=== PATIENT | female | born 1960 | race Caucasian/White ===

== ENCOUNTER → 2020-09-10 12:54 | Outpatient (BNVA) | payer OTHER, SELFPAY | PROVIDERS: PCP Internal Medicine; Visit Provider Family Medicine Adult Medicine | DX: Z76.89 Persons encountering health services in other specified circumstances (principal) ==

== ENCOUNTER 2020-10-07 12:12 | Outpatient (REF) | payer OTHER, SELFPAY | END 2020-10-07 12:13 | disposition home or self-care (01) | LOC: HO.HMGCLDS 12:12 | PROVIDERS: PCP Internal Medicine; Visit Provider Internal Medicine | DX: Z20.828 Contact with and (suspected) exposure to other viral communicable diseases (principal) | CPT/HCPCS: C9803; U0003 ==

== ENCOUNTER → 2020-11-05 15:53 | Outpatient (BNVA) | payer OTHER, SELFPAY | PROVIDERS: PCP Internal Medicine; Visit Provider Family Medicine Adult Medicine | DX: Z76.89 Persons encountering health services in other specified circumstances (principal) ==

== ENCOUNTER 2020-11-13 11:27 | Outpatient (REF) | payer OTHER, SELFPAY ==
--- NOTE | 2020-11-13 11:29 | CT_ITS ---
EXAMINATION: CT CHEST SCREENING CLINICAL INFORMATION: Nicotine dependence, cigarettes. COMPARISON: CT chest 10/11/2019. TECHNIQUE: Multidetector volumetric CT imaging of the chest is performed without contrast using low dose technique. Additional 2D coronal and sagittal reformatted images and axial 3D maximum intensity projection (MIP) images are generated on the CT workstation. This CT examination was performed using dose optimization techniques as appropriate, variously including the following: *Automated exposure control *Adjustment of mA and/or kV according to patient size (this includes techniques or standardized protocols for targeted exams where dose is matched to indication/reason for exam; i.e. extremities or head) *Use of iterative reconstruction technique DLP: 58 mGy-cm. FINDINGS: LUNGS: The lungs are well expanded and clear of acute pneumonic process. There is a 5 mm nodule right upper lobe adjacent to the minor fissure on axial image 239/5, stable. No additional lung nodules seen. There is a 1 cm cyst in left upper lobe posteriorly axial image 144/5, stable. There are minimal atelectatic changes in the lingula. MEDIASTINUM: Heart size and the great vessels are normal caliber. No pericardial effusion seen. There are coronary artery calcifications. The central trachea and bronchi are widely patent. No abnormal-sized mediastinal or hilar lymph nodes seen. There are coronary calcifications present. PLEURA: There is no pleural effusion. No pleural mass or thickening. AXILLA: No lymphadenopathy. There is a 1.6 cm soft tissue mass right chest wall. Previously it measured 1 cm. UPPER ABDOMEN: Unremarkable OSSEOUS STRUCTURES: There is a right posterior 8th rib healing fracture. CT/CT lung screening IMPRESSION: A 5 mm nodule right upper lobe and a small left upper lobe cyst are stable. Right chest wall 1.6 cm nodule, previously measured 1 cm. ASSESSMENT: Lung-RADS category 2: Benign. RECOMMENDATION: Low-dose annual CT chest.
== END 2020-11-13 11:28 | disposition home or self-care (01) ==
LOC: HO.CT 11:27
PROVIDERS: Visit Provider Physician Assistant Medical
DX: Z12.2 Encounter for screening for malignant neoplasm of respiratory organs (principal); F17.210 Nicotine dependence, cigarettes, uncomplicated
CPT/HCPCS: 71271

== ENCOUNTER → 2020-12-19 13:38 | Outpatient (BNVA) | payer OTHER, SELFPAY | PROVIDERS: PCP Internal Medicine; Visit Provider Family Medicine Adult Medicine ==

== ENCOUNTER 2020-12-31 11:47 | Outpatient (REF) | payer OTHER, SELFPAY ==
--- NOTE | ~2020-12-31 | MM_ITS ---
EXAMINATION: MM SCREENING DIGITAL BREAST TOMOSYNTHESIS, BILATERAL CLINICAL INFORMATION: Screening. Asymptomatic. Patient notes benign left axillary surgery over 20 years ago. The lifetime risk of breast cancer based on the Tyrer-Cuzick Model is 11%. COMPARISON: Mammography: 05/14/2017, 11/25/2015 TECHNIQUE: Digital breast tomosynthesis is performed in both the craniocaudal and mediolateral oblique views along with computer-aided detection (CAD). Synthesized 2D images are generated from the tomosynthesis. FINDINGS: There are scattered areas of fibroglandular density (ACR BI-RADS breast composition Category b). There are no significant masses, abnormal calcifications, or other abnormalities. There are surgical clips left axilla. The skin contours are smooth. MM/MM tomosynthesis screening BI IMPRESSION: No mammographic evidence of malignancy. ASSESSMENT: BI-RADS 2: Benign RECOMMENDATION: Routine annual mammography screening. This patient's information was entered into a reminder system with a target due date for their next mammogram.
== END 2020-12-31 11:48 | disposition home or self-care (01) ==
LOC: HO.MAMMO 11:47
PROVIDERS: PCP Internal Medicine; Visit Provider Internal Medicine
DX: Z12.31 Encounter for screening mammogram for malignant neoplasm of breast (principal)
CPT/HCPCS: 77063; 77067

== ENCOUNTER → 2021-01-30 13:24 | Outpatient (BNVA) | payer OTHER, SELFPAY | PROVIDERS: PCP Internal Medicine; Visit Provider Family Medicine Adult Medicine | DX: M23.91 Unspecified internal derangement of right knee (principal); Z96.652 Presence of left artificial knee joint ==

== ENCOUNTER → 2021-03-13 12:54 | Outpatient (BNVA) | payer OTHER, SELFPAY | PROVIDERS: PCP Internal Medicine; Visit Provider Family Medicine Adult Medicine | DX: M23.91 Unspecified internal derangement of right knee (principal); Z96.652 Presence of left artificial knee joint ==

== ENCOUNTER → 2021-04-16 13:13 | Outpatient (BNVA) | payer OTHER, SELFPAY | PROVIDERS: PCP Internal Medicine; Visit Provider Nurse Practitioner Family | DX: M23.91 Unspecified internal derangement of right knee (principal); Z96.652 Presence of left artificial knee joint ==

== ENCOUNTER → 2021-04-28 13:56 | Outpatient (BNVA) | payer OTHER, SELFPAY | PROVIDERS: PCP Internal Medicine; Visit Provider Internal Medicine ==

== ENCOUNTER 2021-07-24 07:58 | Outpatient (REF) | payer OTHER, SELFPAY ==
[2021-07-24 11:41] LABS: Hematocrit 45.3 % (37-47); Hemoglobin 14.1 g/dl (12.0-16.0); Mean Corpuscular HGB Conc 31.1 g/dl (31.0-35.0); Mean Corpuscular Hemoglobin 28.9 pg (27.0-33.0); Mean Corpuscular Volume 92.8 fL (80-98); Mean Platelet Volume 10.2 fL (9.4-12.3); Platelet Count 361 X10*3/uL (160-400); Red Blood Count 4.88 X10*6/uL (4.20-5.50); Red Cell Distribution Width 12.5 % (11.0-16.0); White Blood Count 5.2 X10*3/uL (4.8-10.8)
[2021-07-24 11:53] LABS: Alanine Aminotransferase 6 U/L (0-31); Albumin Level 3.9 g/dL (3.5-5.0); Alkaline Phosphatase 76 U/L (39-117); Anion Gap 11 (12-20); Aspartate Amino Transferase 12 U/L (5-31); Bilirubin Total 0.5 mg/dL (0.0-1.0); Blood Urea Nitrogen 10 mg/dL (9-16); Carbon Dioxide 29 mmol/L (22-29); Chloride 102 mmol/L (96-108); Cholesterol 176 mg/dL; Estimated Glomerular Filt Rate > 60; Glucose Fasting 94 mg/dL (60-99); HDL Cholesterol 51 mg/dL; LDL Cholesterol Calculated 107 mg/dl; Potassium 4.2 mmol/L (3.3-5.1); Sodium 138 mmol/L (135-145); Total Protein 6.9 g/dL (6.5-8.0); Triglycerides 91 mg/dL
[2021-07-24 12:02] LABS: TSH reflex Free T4 2.79 uIU/mL (0.32-4.0)
== END 2021-07-24 07:59 | disposition home or self-care (01) ==
LOC: HO.HMGCLDS 07:58
PROVIDERS: PCP Internal Medicine; Visit Provider Internal Medicine
DX: Z00.00 Encounter for general adult medical examination without abnormal findings (principal); J44.9 Chronic obstructive pulmonary disease, unspecified; E78.5 Hyperlipidemia, unspecified
CPT/HCPCS: 36415; 80053; 80061; 84443; 85027

== ENCOUNTER 2021-11-20 10:58 | Outpatient (REF) | payer OTHER, SELFPAY | END 2021-11-20 10:59 | disposition home or self-care (01) | LOC: HO.LAB 10:58 | PROVIDERS: Visit Provider Internal Medicine | DX: Z13.89 Encounter for screening for other disorder (principal) ==

== ENCOUNTER 2022-06-02 07:38 | Outpatient (REF) | payer OTHER, SELFPAY ==
[2022-06-02 12:03] LABS: Alanine Aminotransferase 7 U/L (0-31); Albumin Level 3.8 g/dL (3.5-5.0); Alkaline Phosphatase 76 U/L (39-117); Anion Gap 9 (12-20); Aspartate Amino Transferase 12 U/L (5-31); Bilirubin Total 0.3 mg/dL (0.0-1.0); Blood Urea Nitrogen 22 mg/dL (9-16); Calcium 8.9 mg/dL (8.4-10.2); Carbon Dioxide 32 mmol/L (22-29); Chloride 102 mmol/L (96-108); Cholesterol 175 mg/dL; Estimated Glomerular Filt Rate > 60; Glucose Fasting 89 mg/dL (60-99); HDL Cholesterol 54 mg/dL; LDL Cholesterol Calculated 105 mg/dl; Potassium 4.5 mmol/L (3.3-5.1); Sodium 138 mmol/L (135-145); Triglycerides 83 mg/dL
== END 2022-06-02 07:39 | disposition home or self-care (01) ==
LOC: HO.HMGCLDS 07:38
PROVIDERS: Visit Provider Internal Medicine
DX: E78.5 Hyperlipidemia, unspecified (principal); J44.9 Chronic obstructive pulmonary disease, unspecified
CPT/HCPCS: 36415; 80053; 80061

== ENCOUNTER 2022-06-09 15:43 | Outpatient (REF) | payer OTHER, SELFPAY ==
--- NOTE | ~2022-06-09 | MM_ITS ---
EXAMINATION: MM SCREENING DIGITAL BREAST TOMOSYNTHESIS, BILATERAL CLINICAL INFORMATION: Screening. Asymptomatic. Family history breast cancer, mother. The lifetime risk of breast cancer based on the Tyrer-Cuzick Model is 11%. COMPARISON: Mammography: 12/31/2020, 05/14/2017, 11/25/2015, 09/11/2014 TECHNIQUE: Digital breast tomosynthesis is performed in both the craniocaudal and mediolateral oblique views along with computer-aided detection (CAD). Synthesized 2D images are generated from the tomosynthesis. Additional left MLO view is provided. FINDINGS: There are scattered areas of fibroglandular density (ACR BI-RADS breast composition Category b). There are no significant masses, abnormal calcifications, or other abnormalities. Parenchymal pattern is similar to prior studies. No developing density. Intramammary node again noted posterior upper outer left breast. MM/MM tomosynthesis screening BI IMPRESSION: No mammographic evidence of malignancy. ASSESSMENT: BI-RADS 2: Benign RECOMMENDATION: Routine annual mammography screening. This patient's information was entered into a reminder system with a target due date for their next mammogram.
== END 2022-06-09 15:44 | disposition home or self-care (01) ==
LOC: HO.MAMMO 15:43
PROVIDERS: Visit Provider Internal Medicine
DX: Z12.31 Encounter for screening mammogram for malignant neoplasm of breast (principal)
CPT/HCPCS: 77063; 77067

== ENCOUNTER → 2022-08-25 10:59 | Outpatient (BNVA) | payer SELFPAY | PROVIDERS: PCP Internal Medicine; Visit Provider Internal Medicine | DX: Z13.89 Encounter for screening for other disorder (principal) ==

== ENCOUNTER 2023-06-08 09:29 | Outpatient (AMB) | payer OTHER, SELFPAY ==
--- NOTE | 2023-06-08 09:43 | MHC.PC.OV ---
Vital Signs 06/08/23 09:45 Height 5 ft 3 in Weight 201 lb BMI 35.6 BP 124/78 Blood Pressure Location Lt brachial Position Sitting Pulse 66 Pulse Source Pulse Oximeter Pulse Oximetry (%) 91 L Oxygen Delivery Method Room Air Intake Visit Reasons: Annual PE Allergies No Known Allergies Allergy (Verified 06/08/23 09:45) Medication List - Last Reconciled 06/08/23 by Mame Zamora MD albuterol sulfate 90 mcg/actuation 1 puff inhalation Q6-8H amoxicillin-pot clavulanate 875-125 mg 1 tab PO BID buprenorphine-naloxone 8-2 mg 7 mg sublingual DAILY duloxetine 60 mg PO DAILY erythromycin 0.5 inches ophthalmic (eye) BID 5 days omeprazole 20 mg PO DAILY pravastatin 20 mg PO DAILY Tobacco use date assessed: 06/03/22 Dental Screening Dental Screen Date: 06/08/23 Did you have a dental visit in the last 12 months?: No Did you have a dental problem in the last 6 months where you did not have access to dental care?: No Was dental information given to patient?: Patient has dentist HPI Annual PE HPI Details PATIENT PRESENTS FOR PHYSICAL PFSH Medical History Ankle pain, left Annual physical exam Anxiety Anxiety COPD (chronic obstructive pulmonary disease) Depression Derangement of right knee Fibromyalgia GERD (gastroesophageal reflux disease) Hyperlipidemia Insomnia Mammogram normal Nausea Obese Tobacco dependence Surgical History H/O colonoscopy History of arthroscopy of shoulder History of arthroscopy of shoulder History of section History of lumpectomy of left breast History of repair of right rotator cuff History of total left knee replacement (TKR) History of tubal ligation Hx of left knee surgery Hx of right knee surgery Family History Father No problems noted. Mother Breast cancer Throat cancer Substance use disorder Maternal Grandmother Alcoholism Maternal Grandfather No problems noted. Paternal Grandmother No problems noted. Paternal Grandfather No problems noted. Son No problems noted. Daughter No problems noted. 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 Alcohol intake: never Patient Tobacco Use Status: Current everyday Tobacco user Tobacco use type: Cigarette Cigarettes Per Day: 20 Years Smoked: 40 e-Cigarette/Vaping Use: Former Use Current occupational status: employed Cognitive needs: No Hearing needs: No Vision needs: No Questionnaire Thrive Questionnaire Date Thrive assessed: 06/03/22 AUDIT C Alcohol Use Questionnaire (AUDIT-C) 1. How often do you have a drink containing alcohol?: Never 3. How often do you have six or more drinks on one occasion?: Never Total Score: 0 Score Reviewed/Action Taken: No NATTY-7 AMB Questionnaire NATTY-7 Date NATTY - 7 assessed: 06/03/22 Source: Developed by Drs. Tawanda Gottlieb, Lesa Jeff, Peter Araujo and colleagues, with an educational sandi from [employer]. Review of Systems Const All systems reviewed & are unremarkable except as noted in HPI and below Reports no additional complaints Eyes Reports no additional complaints ENT Reports no additional complaints Card Reports no additional complaints Resp Reports no additional complaints GI Reports no additional complaints Physical exam (Primary Care) Vital Signs: Last Vital Signs Pulse 66 06/08/23 09:45 BP 124/78 06/08/23 09:45 Pulse Ox 91 L 06/08/23 09:45 Oxygen Delivery Method Room Air 06/08/23 09:45 BMI result Body Mass Index 35.6 Tobacco/Smoking Status: Tobacco use Status Tobacco use date assessed 06/03/22 06/08/23 09:45 Patient Tobacco Use Status Current everyday Tobacco 06/08/23 09:45 Tobacco use type Cigarette 06/08/23 09:45 e-Cigarette/Vaping Use Former Use 06/08/23 09:45 Thrive Assessment: Date of Thrive Assessment Date Thrive assessed 06/03/22 06/08/23 09:45 Const General: no acute distress HENMT Head: Yes normal to inspection Ears: hearing grossly normal bilaterally Face and sinus: Yes normal facial exam Throat: Yes posterior oropharynx normal Eyes General: appearance normal, both eyes and all related structures Neck Neck: Yes no lymphadenopathy and Yes supple Resp Effort & Inspection: normal respiratory effort Auscultation: clear to auscultation bilaterally Cardio Rhythm: regular rhythm Heart sounds: S1 normal heart sound present and S2 normal heart sound present GI Inspection: Yes normal to inspection Palpation (GI): Soft to palpation Percussion: Yes normal to percussion Auscultation: normal bowel sounds Assessment and Plan Assessment & Plan (1) Depression: Code(s): F32.9 - Major depressive disorder, single episode, unspecified Plan: Continue duloxetine (2) Annual physical exam: Code(s): Z00.00 - Encounter for general adult medical examination without abnormal findings Plan: Well-balanced diet regular exercise weight loss discussed with the patient she will have a fasting blood work today (3) Mammogram normal: Comment: 06/30 (4) Hyperlipidemia: Code(s): E78.5 - Hyperlipidemia, unspecified Plan: Continue pravastatin (5) Tobacco dependence: Comment: Lung ca screening 11/2020, RUL nodule 5 mm stable , f/u [facility] [place] Code(s): F17.200 - Nicotine dependence, unspecified, uncomplicated Plan: Tobacco quitting discussed with the patient. She is overdue for screening CT for lung cancer program patient will be referred back Orders: Orders Comprehensive [place]. Panel Fast Today E78.5 - Hyperlipidemia, unspecified, F17.200 - Nicotine dependence, unspecified, uncomplicated, F32.9 - Major depressive disorder, single episode, unspecified, Z00.00 - Encounter for general adult medical examination without abnormal findings Lipid Panel Today E78.5 - Hyperlipidemia, unspecified, F17.200 - Nicotine dependence, unspecified, uncomplicated, F32.9 - Major depressive disorder, single episode, unspecified, Z00.00 - Encounter for general adult medical examination without abnormal findings Complete Blood Count Auto Diff Today E78.5 - Hyperlipidemia, unspecified, F17.200 - Nicotine dependence, unspecified, uncomplicated, F32.9 - Major depressive disorder, single episode, unspecified, Z00.00 - Encounter for general adult medical examination without abnormal findings UA w Microscopic Today E78.5 - Hyperlipidemia, unspecified, F17.200 - Nicotine dependence, unspecified, uncomplicated, F32.9 - Major depressive disorder, single episode, unspecified, Z00.00 - Encounter for general adult medical examination without abnormal findings Referrals Cologuard Test Z12.11 - Encounter for screening for malignant neoplasm of colon, Z12.12 - Encounter for screening for malignant neoplasm of rectum Thoracic Surgery Referral F17.200 - Nicotine dependence, unspecified, uncomplicated Medications: New amoxicillin-pot clavulanate 875-125 mg 1 tab PO BID 20 tabs 0RF Coding Level of Care Code Est Pt Prev Care 40-64y(75021) Diagnoses Depression F32.9 Annual physical exam Z00.00 Mammogram normal Hyperlipidemia E78.5 Tobacco dependence F17.200
[2023-06-08 09:45] VITALS: BP 124/78; PULSE 66; O2SAT 91; BMI 35.6
== END 2023-06-08 10:27 | disposition home or self-care (01) ==
PROVIDERS: Visit Provider Internal Medicine
DX: Z00.00 Encounter for general adult medical examination without abnormal findings (principal); F33.9 Major depressive disorder, recurrent, unspecified; F17.210 Nicotine dependence, cigarettes, uncomplicated; E78.5 Hyperlipidemia, unspecified
CPT/HCPCS: 99396

== ENCOUNTER 2023-06-08 10:25 | Outpatient (REF) | payer OTHER, SELFPAY ==
[2023-06-08 13:26] LABS: MANUAL DIFF FLAG NO
[2023-06-08 13:41] LABS: Basophils Percent Auto 0.8 % (0-2); Eosinophils Absolute Auto 0.2 X10*3/uL (0.0-0.4); Eosinophils Percent Auto 3.1 % (0-4); Hematocrit 47.2 % (37.0-47.0); Imm Gran Abs Auto 0.02 X10*3/uL (0.00-0.03); Imm Gran Pct Auto 0.4 % (0.0-0.4); Lymphocytes Absolute Auto 1.1 X10*3/uL (1.2-4.9); Lymphocytes Percent Auto 23.3 % (20-40); Mean Corpuscular HGB Conc 31.8 g/dl (31.0-35.0); Mean Corpuscular Hemoglobin 28.8 pg (27.0-33.0); Mean Corpuscular Volume 90.6 fL (80.0-98.0); Mean Platelet Volume 10.2 fL (9.4-12.3); Monocytes Absolute Auto 0.4 X10*3/uL (0.1-1.2); Monocytes Percent Auto 8.4 % (2-11); Neutrophils Absolute Auto 3.1 x10*3/uL (2.0-8.3); Platelet Count 291 X10*3/uL (160-400); Red Blood Count 5.21 X10*6/uL (4.20-5.50); Red Cell Distribution Width 14.1 % (11.0-16.0); White Blood Count 4.9 X10*3/uL (4.8-10.8)
[2023-06-08 13:55] LABS: Appearance Urine Clear; Color Urine Yellow; Glucose Urine UA Negative (Negative); Leukocyte Esterase Urine Negative (Negative); Nitrite Urine Negative (Negative); PH 7.5 (5.0-9.0); Urine Blood Negative (Negative); Urine Ketones Negative (Negative); Urine Protein Negative (Neg-Trace)
[2023-06-08 14:02] LABS: Bacteria Urine None Seen (None Seen); Hyaline Casts Urine 0-2 /LPF (0-2); RBC Urine 0-2 /HPF (0-2); WBC Urine 0-5 /HPF (0-5)
[2023-06-08 14:04] LABS: Alanine Aminotransferase 8 U/L (0-31); Albumin Level 3.7 g/dL (3.5-5.0); Alkaline Phosphatase 82 U/L (39-117); Anion Gap 13 (12-20); Aspartate Amino Transferase 13 U/L (5-31); Bilirubin Total 0.5 mg/dL (0.0-1.0); Blood Urea Nitrogen 14 mg/dL (9-16); Calcium 9.4 mg/dL (8.4-10.2); Carbon Dioxide 29 mmol/L (22-29); Chloride 99 mmol/L (96-108); Cholesterol 189 mg/dL; Estimated Glomerular Filt Rate > 60; Glucose Fasting 94 mg/dL (60-99); HDL Cholesterol 54 mg/dL; LDL Cholesterol Calculated 120 mg/dl; Potassium 4.4 mmol/L (3.3-5.1); Sodium 137 mmol/L (135-145); Total Protein 7.7 g/dL (6.5-8.0); Triglycerides 79 mg/dL
== END 2023-06-08 10:26 | disposition home or self-care (01) ==
LOC: HO.HMGCLDS 10:25
PROVIDERS: PCP Internal Medicine; Visit Provider Internal Medicine
DX: Z00.00 Encounter for general adult medical examination without abnormal findings (principal); F32.9 Major depressive disorder, single episode, unspecified; E78.5 Hyperlipidemia, unspecified; F17.200 Nicotine dependence, unspecified, uncomplicated
CPT/HCPCS: 36415; 80053; 80061; 81001; 85025

== ENCOUNTER 2023-11-08 19:52 | Inpatient (IN) | payer OTHER, SELFPAY ==
[2023-11-08] VITALS (8 sets, daily range): BP systolic 120–130; BP diastolic 80–83; PULSE 101–105; RESP 14–25; TEMP 36.1; O2SAT 76–100; BMI 39.4
--- NOTE | ~2023-11-08 | XR_ITS ---
EXAMINATION: XR CHEST CLINICAL INFORMATION: Shortness of breath. COMPARISON: CT chest 11/13/2020. TECHNIQUE: Frontal view of the chest was obtained. FINDINGS: Prominent cardiomediastinal silhouette with diffuse interstitial thickening. No focal consolidation, pleural effusion or pneumothorax. No acute osseous findings. Visualized upper abdomen is within normal limits. Surgical clips projecting over the left breast. XR/XR chest 1V IMPRESSION: Findings suggesting pulmonary edema versus atypical infectious/inflammatory process. Prominent cardiomediastinal silhouette could be related with cardiomegaly, further evaluation with bedside echocardiogram as clinically warranted.
--- NOTE | 2023-11-08 20:03 | ECG_ITS ---
Test Reason : dyspnea Blood Pressure : / mmHG Vent. Rate : 098 BPM Atrial Rate : 098 BPM P-R Int : 152 ms QRS Dur : 080 ms QT Int : 296 ms P-R-T Axes : 059 107 019 degrees QTc Int : 377 ms Normal sinus rhythm Possible Right ventricular hypertrophy Nonspecific ST and T wave abnormality Abnormal ECG No previous ECGs available Referred By: Jadyn Mondragon Electronically Signed By:Hal Sheppard
--- NOTE | 2023-11-08 20:08 | ED_ITS ---
HPI - SOB/Dyspnea General Chief Complaint: Dyspnea Stated Complaint: SOB,HX COPD Time Seen by Provider: 11/08/23 19:53 Source: patient, family and EMS Mode of arrival: EMS Limitations: other (Shortness of breath) History of Present Illness HPI Narrative: Patient comes to the emergency room complaining of shortness of breath. Patient comes via ambulance from home. Patient seems a bit confused, short of breath. According to the patient's , the patient has been complaining of shortness of breath and wheezing since today. Patient has not been coughing. Patient known to have COPD, no cardiac history. According to EMS, the patient's oxygen saturation was in the low 80s, so given a DuoNeb EN route to the hospital. On arrival, while we were switching the patient from the ambulance stretcher to the ER bed, patient's oxygen was removed for a few seconds, oxygen saturation dropped to 76% with good waveform. Related Data Home Medications Medication Instructions Recorded Confirmed buprenorphine 8 mg-naloxone 2 mg 7 mg sublingual DAILY 07/29/21 06/08/23 sublingual film Previous Rx's Medication Instructions Recorded pravastatin 20 mg tablet 20 mg PO DAILY #90 tabs 09/10/22 albuterol sulfate 90 mcg/actuation 1 puff inhalation Q6-8H #25.5 grams 11/06/22 aerosol inhaler omeprazole 20 mg capsule,delayed 20 mg PO DAILY #90 caps 05/01/23 release amoxicillin 875 mg-potassium 1 tab PO BID #20 tabs 06/08/23 clavulanate 125 mg tablet erythromycin 5 mg/gram (0.5 %) eye 0.5 inch ophthalmic (eye) BID 5 06/18/23 ointment days #3.5 grams zolpidem 5 mg tablet 5 mg PO BEDTIME PRN insomnia #30 10/15/23 tabs duloxetine 60 mg capsule,delayed 60 mg PO DAILY #90 caps 10/28/23 release Allergies Allergy/AdvReac Type Severity Reaction Status Date / Time No Known Allergies Allergy Verified 11/08/23 20:00 Review of Systems 2 Review of Systems: Constitutional : No Weight loss, No Fever, No Chills, No Night Sweats, No Fatigue, No Malaise ENT/Mouth : No Hearing loss, No Ear Pain, No Nasal Congestion, No Sinus Pain, No Hoarseness, No sore throat, No Rhinorrhea, No Swallowing Difficulty Eyes: No Eye Pain, No Swelling, No Redness, No Foreign Body, No Discharge, No Vision Changes Cardiovascular : No Chest Pain, complaining of shortness of breath, no orthopnea, no palpitations Respiratory : Mild dry cough, complaining of wheezing and shortness of breath Gastrointestinal : No Nausea, No Vomiting, No Diarrhea, No Constipation, No abdominal Pain, No Hematochezia, No Melena Genitourinary : no irregular bleeding, No Dysuria, No Urinary Frequency, No Hematuria, No Urinary Incontinence, No Urgency, No Flank Pain, No Urinary Flow Changes, No Hesitancy Musculoskeletal : No joint pain, No Myalgias, No Joint Swelling Skin : No Skin Lesions, No rash Neuro : No Weakness, No Numbness, No Paresthesias, No Loss of Consciousness, No Dizziness, No Headache Psych : No Anxiety/Panic, No Depression, No SI/HI/AH/VH, No Social Issues, Heme/Lymph: No Bruising, No Bleeding,No Lymphadenopathy Endocrine : No Polyuria, No Polydipsia, No Temperature Intolerance PMFSH Past Medical History Onset Date is defined in the Problem List Problems that require an onset date and time if occurred within 24 hrs of arrival to the ED Aortic Dissection and Rupture; Neurologic impairment; Cardiopulmonary Arrest; Endotracheal Intubation; Insertion or Replacement of Mechanical Circulatory Assist Device Medical History Mammogram normal Anxiety Nausea Annual physical exam Tobacco dependence COPD (chronic obstructive pulmonary disease) Ankle pain, left Obese GERD (gastroesophageal reflux disease) Fibromyalgia Hyperlipidemia Insomnia Depression Anxiety Derangement of right knee Surgical History H/O colonoscopy History of arthroscopy of shoulder History of arthroscopy of shoulder History of section History of lumpectomy of left breast History of repair of right rotator cuff History of total left knee replacement (TKR) History of tubal ligation Hx of left knee surgery Hx of right knee surgery Family History Family History Father No problems noted. Mother Breast cancer Throat cancer Substance use disorder Maternal Grandmother Alcoholism Maternal Grandfather No problems noted. Paternal Grandmother No problems noted. Paternal Grandfather No problems noted. Son No problems noted. Daughter No problems noted. 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: House Alcohol intake: never Patient Tobacco Use Status: Current everyday Tobacco user Tobacco use type: Cigarette Cigarettes Per Day: 20 Years Smoked: 40 Smoked in Last 30 Days: No e-Cigarette/Vaping Use: Former Use Use of substances other than those prescribed or required for medical reasons: Yes Substance Use Type: Marijuana Last Used Substance: Days (ago) Advance Directives: No Advance Directives Information Provided: No Current occupational status: employed Cognitive needs: No Hearing needs: No Vision needs: No Physical Exam 2 Vital Signs: Vital Signs: Last Vital Signs Temp 97.0 F 11/08/23 20:18 Pulse 105 H 11/08/23 21:41 Resp 19 11/08/23 21:41 BP 130/80 11/08/23 21:41 Pulse Ox 89 L 11/08/23 21:41 O2 Del Method CPAP 11/08/23 21:41 O2 Flow Rate 45 11/08/23 21:41 BMI result Body Mass Index 39.4 Const: Other: Appearance: Alert. Oriented X3. But seems a bit confused Eyes: Pupils equal, round and reactive to light. ENT: Pharynx normal. Neck: Normal inspection. Neck supple. No lymph nodes noted. No crepitus CVS: Normal heart rate and rhythm. Pulses normal. Normal S1 and S2 Respiratory: Tachypneic, oxygen saturation 76% on room air, 85% on 5 L, bilateral wheezing, bilateral decreased air movement, bilateral crackles Abdomen: Soft and nontender. No rigidity. No distention. Skin: Skin warm and dry. Normal skin color. Normal skin turgor. Extremities: No lower extremity edema. No Lacerations. No Rash Neuro: No motor deficit. No sensory deficit. Moving all extremities. No slurred speech. CN 2 through 12 grossly intact Psych: calm, cooperative, normal affect Course Course Course Narrative: -patient's labs and imaging pending -discussed with the patient that she will likely stay in the hospital after the initial workup is complete. Patient and agree with plan. Medications Administered Generic Name Dose Route Start Last Admin Trade Name Freq PRN Reason Stop Dose Admin Sodium Chloride 2,000 mls @ 999 mls/hr 11/08/23 20:03 11/08/23 20:09 Ns IVCONT 11/08/23 22:03 999 mls/hr .Q2H1M ONE Administration Azithromycin 500 mg/ Sodium 250 mls @ 125 mls/hr 11/08/23 20:07 11/08/23 21:41 Chloride IV 11/08/23 22:06 125 mls/hr ONCE ONE Administration Magnesium Sulfate 2 gm in 50 mls @ 25 mls/hr 11/08/23 20:07 11/08/23 20:14 Magnesium Sulfate/H2o IV 11/08/23 22:06 25 mls/hr ONCE ONE Administration Discontinued Medications Generic Name Dose Route Start Last Admin Trade Name Freq PRN Reason Stop Dose Admin Albuterol Sulfate 10 mg 11/08/23 20:07 11/08/23 20:16 Albuterol Sulfate (0.083%) 2.5 Mg/3 Ml Vial.Neb INHALE 11/08/23 20:08 10 mg ONCE ONE Administration Furosemide 40 mg 11/08/23 21:18 11/08/23 21:41 Furosemide 40 Mg/4 Ml Vial IVPUSH 11/08/23 21:19 40 mg STAT STA Administration Protocol Ceftriaxone Sodium 1 gm/ 50 mls @ 100 mls/hr 11/08/23 20:07 11/08/23 21:31 Sodium Chloride IV 11/08/23 20:36 Infused ONCE ONE Infusion Methylprednisolone Sodium Succinate 125 mg 11/08/23 20:08 11/08/23 20:14 Methylprednisolone Sod Succ 125 Mg/2 Ml Vial IVPUSH 11/08/23 20:09 125 mg ONCE ONE Administration Medical Decision Making Medical Decision Making MDM Narrative: -patient's oxygen saturations 78% on room air on arrival after a DuoNeb. Patient is not O2 dependent. 5 L of oxygen increased oxygen saturation to 83%. Patient switched to a non-rebreather, patient receiving neb treatments. -patient empirically being treated with IV antibiotics, ceftriaxone azithromycin, and given IV fluids based on ideal weight of 48 kg, patient is obese. Patient receiving hour long nebulization treatment, Solu-Medrol and magnesium IV -20:07 all of patient's labs and imaging pending -patient was switched to CPAP. Patient is still having short of breath. -on arrival, patient was being treated for COPD, as she was wheezing and had no cardiac history. -however, at this time, 21:23, we received a phone call from the lab, patient has a BNP of 787 which is new for the patient, troponin 70.9, likely secondary to demand ischemia, no chest pain -heart rate 98, no ST segment depression or elevation, no T-wave inversion, QTC pre 77 -patient has no lower extremity edema, patient is still wheezing. Patient likely has a combination of COPD and CHF. Is possible that the wheezing may be cardiac. -I discussed the above-mentioned with the patient and her -at this time, patient was switched from CPAP to BiPAP, as she is tolerating BiPAP better -patient in total got 1 L of IV fluids. Antibiotics. Now patient is getting Lasix -patient's pCO2 is elevated, 76, no previous venous blood gases for comparison available. -is likely that patient has both, COPD and new onset CHF -patient is currently on CPAP. We will reassess in 2 hours, around midnight, and also recheck venous blood gases. -sign-out given to my colleague Dr. Morris Differential Diagnosis Differential Diagnoses: The differential diagnosis associated with the presentation includes (COPD, pneumonia, COVID, CHF) Admission/Observation Consideration of admission/observation: Escalation of care including admission/observation considered Consult Healthcare Provider Management of the patient was discussed with: Hospitalist Lab Data [facility] Lab Attestation statement: I reviewed the patient's lab results. 11/08/23 20:43 11/08/23 20:43 Labs: Lab Results 11/08/23 11/08/23 11/08/23 Range/Units 20:43 20:43 20:49 WBC 8.3 (4.8-10.8) X10*3/uL RBC 5.05 (4.20-5.50) X10*6/uL Hgb 13.6 (12.0-16.0) g/dl Hct 44.8 (37.0-47.0) % MCV 88.7 (80.0-98.0) fL MCH 26.9 L (27.0-33.0) pg MCHC 30.4 L (31.0-35.0) g/dl RDW 14.1 (11.0-16.0) % Plt Count 305 (160-400) X10*3/uL MPV 9.9 (9.4-12.3) fL Immature Gran % (Auto) 0.2 (0.0-0.4) % Neut % (Auto) 76.3 H (45-73) % Lymph % (Auto) 13.5 L (20-40) % [place] % (Auto) 9.6 (2-11) % Eos % (Auto) 0.2 (0-4) % Baso % (Auto) 0.2 (0-2) % Lymph # (Auto) 1.1 L (1.2-4.9) X10*3/uL [place] # (Auto) 0.8 (0.1-1.2) X10*3/uL Eos # (Auto) 0.0 (0.0-0.4) X10*3/uL Baso # (Auto) 0.0 (0.0-0.2) X10*3/uL Abs Immat Gran (auto) 0.02 (0.00-0.03) X10*3/uL Absolute Neuts (auto) 6.3 (2.0-8.3) x10*3/uL Absolute Nucleated RBC 0.000 (0.0-0.012) X10*3/uL Nucleated RBC % (auto) 0.0 (0.0-0.2) /100WBC PT 14.7 H (11.1-13.3) SEC INR 1.2 H (0.9-1.1) VBG pH 7.26 L (7.32-7.43) VBG pCO2 76 mmHg VBG pO2 90 mmHg VBG HCO3 35 H (22-26) mmol/L VBG O2 Saturation 98.0 % VBG Base Excess 4.9 mmol/L Sodium 138 (135-145) mmol/L Potassium 4.3 (3.3-5.1) mmol/L Chloride 100 (96-108) mmol/L Carbon Dioxide 32 H (22-29) mmol/L Anion Gap 10 L (12-20) BUN 24 H (9-16) mg/dL Creatinine 0.62 (0.5-1.4) mg/dL Estim Creat Clear Calc 103.9 Estimated GFR > 60 Random Glucose 126 H (60-115) mg/dL Lactic Acid 0.8 (0.5-2.0) mmol/L Calcium 8.8 D (8.4-10.2) mg/dL Total Bilirubin 0.5 (0.0-1.0) mg/dL Direct Bilirubin 0.2 (0.0-0.5) mg/dL AST 21 (5-31) U/L ALT 15 (0-31) U/L Alkaline Phosphatase 122 H (39-117) U/L Troponin I High Sens 70.9 H* (<3.5-17.0) ng/L B-Natriuretic Peptide 761 H 787 H (<100) pg/mL Total Protein 7.8 (6.5-8.0) g/dL Albumin 3.6 (3.5-5.0) g/dL Influenza Type A (PCR) NEGATIVE (Negative) Influenza Type B (PCR) NEGATIVE (Negative) RSV RNA Qual (PCR) NEGATIVE (Negative) SARS-CoV-2 RNA (RT-PCR) NEGATIVE (Negative) Independent Interpretation I performed an independent interpretation of an: EKG Independent Historian Clinical information obtained from an independent historian. History obtained from or confirmed by: Spouse Critical Care Time Critical Care Time Critical Care Time: Yes Total Critical Care Time: 90 Attestation: I have personally provided critical care time. Time includes review of lab data, radiology results, discussion with consultants, and monitoring for potential decompensation. Intervention performed as documented. Discharge Plan Discharge Clinical Impression: New onset of congestive heart failure, COPD (chronic obstructive pulmonary disease) Patient Disposition: Admitted As Inpatient
--- NOTE | 2023-11-08 20:08 | PC.NURSE ---
respiratory at bedside completing breathing treatment for pt.
[2023-11-08] MEDS: 0.9 % Sodium Chloride 2,000 ML 999 ML IVCONT (20:09)
[2023-11-08] MEDS: Magnesium Sulfate/H2O 2 GM/50 ML PIGGYBACK IV (20:14)
[2023-11-08] MEDS: methylPREDNISolone Sod Succ 125 MG/2 ML VIAL IVPUSH (20:14)
[2023-11-08] MEDS: Albuterol Sulfate (0.083%) 2.5 MG/3 ML VIAL.NEB 10 MG INHALE (20:16)
[2023-11-08 20:52] LABS: MANUAL DIFF FLAG NO
[2023-11-08 20:55] LABS: Basophils Percent Auto 0.2 % (0-2); Eosinophils Percent Auto 0.2 % (0-4); Hematocrit 44.8 % (37.0-47.0); Hemoglobin 13.6 g/dl (12.0-16.0); Imm Gran Abs Auto 0.02 X10*3/uL (0.00-0.03); Imm Gran Pct Auto 0.2 % (0.0-0.4); Lymphocytes Absolute Auto 1.1 X10*3/uL (1.2-4.9); Lymphocytes Percent Auto 13.5 % (20-40); Mean Corpuscular HGB Conc 30.4 g/dl (31.0-35.0); Mean Corpuscular Hemoglobin 26.9 pg (27.0-33.0); Mean Corpuscular Volume 88.7 fL (80.0-98.0); Mean Platelet Volume 9.9 fL (9.4-12.3); Monocytes Absolute Auto 0.8 X10*3/uL (0.1-1.2); Monocytes Percent Auto 9.6 % (2-11); Neutrophils Absolute Auto 6.3 x10*3/uL (2.0-8.3); Neutrophils Percent Auto 76.3 % (45-73); Platelet Count 305 X10*3/uL (160-400); Red Blood Count 5.05 X10*6/uL (4.20-5.50); Red Cell Distribution Width 14.1 % (11.0-16.0); Venous Blood Gas Refer to POC result; White Blood Count 8.3 X10*3/uL (4.8-10.8)
[2023-11-08 20:56] LABS: VBG Base Excess 4.9 mmol/L; VBG HCO3 35 mmol/L (22-26); VBG pCO2 76 mmHg; VBG pH 7.26 (7.32-7.43); VBG pO2 90 mmHg
[2023-11-08 21:00] LABS: INTERNATIONAL NORM RATIO 1.2 (0.9-1.1); Prothrombin Time 14.7 SEC (11.1-13.3)
[2023-11-08] MEDS: cefTRIAXone sodium 1 GM in 0.9 % Sodium Chloride 50 ML IV (21:01)
--- NOTE | 2023-11-08 21:01 | PC.NURSE ---
delay in antibiotic administration due to pt having one access and need for blood cultures.
[2023-11-08 21:03] LABS: Lactic Acid 0.8 mmol/L (0.5-2.0)
[2023-11-08 21:09] LABS: Alanine Aminotransferase 15 U/L (0-31); Albumin Level 3.6 g/dL (3.5-5.0); Alkaline Phosphatase 122 U/L (39-117); Anion Gap 10 (12-20); Aspartate Amino Transferase 21 U/L (5-31); Bilirubin Direct 0.2 mg/dL (0.0-0.5); Bilirubin Total 0.5 mg/dL (0.0-1.0); Blood Urea Nitrogen 24 mg/dL (9-16); Calcium 8.8 mg/dL (8.4-10.2); Carbon Dioxide 32 mmol/L (22-29); Chloride 100 mmol/L (96-108); Creatinine Clr Calc Pharmacy 103.9; Estimated Glomerular Filt Rate > 60; Glucose Random 126 mg/dL (60-115); Potassium 4.3 mmol/L (3.3-5.1); Sodium 138 mmol/L (135-145); Total Protein 7.8 g/dL (6.5-8.0)
--- NOTE | 2023-11-08 21:11 | PC.NURSE ---
respiratory at bedside placing pt on CPAP.
--- NOTE | 2023-11-08 21:13 | PC.NURSE ---
late entry- pt biba from home reporting onset of increasing shortness of breath since sherri. pt reports today the shortness of breath increased. pt reports she had used rescue inhaler without relief. upon arrival pt had dimished breath sounds as well as expiratory wheezing. pt denies chest pain, n/v/d. pt sinus tachy on tele [id number].
[2023-11-08 21:14] LABS: B Type Natriuretic Peptide 787 pg/mL (<100)
[2023-11-08 21:18] LABS: Troponin-I High Sensitivity 70.9 ng/L (<3.5-17.0)
[2023-11-08 21:19] LABS: B Type Natriuretic Peptide 761 pg/mL (<100)
[2023-11-08 21:41] LABS: Influenza A PCR NEGATIVE (Negative); Influenza B PCR NEGATIVE (Negative); Resp Syncy Virus RNA Qual PCR NEGATIVE (Negative); SARS COV2 PCR INHOUSE NEGATIVE (Negative)
[2023-11-08] MEDS: Furosemide 40 MG/4 ML VIAL IVPUSH (21:41)
[2023-11-08] MEDS: Azithromycin 500 MG in 0.9 % Sodium Chloride 250 ML 125 MG IV (21:41)
--- NOTE | 2023-11-08 21:47 | PC.NURSE ---
provider discontinued second liter of fluids at this time, pt received 1000ml normal saline.
--- NOTE | 2023-11-08 22:04 | PC.NURSE ---
purewick placed at this time per provider verbal order. pt tolerated well. respiratory and provider at bedside discussing pt care.
[2023-11-08] MEDS: Morphine Sulfate 4 MG/ML CARTRIDGE IVPUSH (22:10)
--- NOTE | 2023-11-08 22:33 | PC.NURSE ---
this rn at bedside, pt jumped out of bed and ripped off cpap and states i cant do this anymore . provider aware and respiratory aware and at bedside at this time.
[2023-11-09] VITALS (24 sets, daily range): BP systolic 98–161; BP diastolic 48–95; PULSE 75–107; RESP 12–24; TEMP 36.1–37; O2SAT 88–98
[2023-11-09 00:04] LABS: VBG Base Excess 3.5 mmol/L; VBG HCO3 35 mmol/L (22-26); VBG pCO2 85 mmHg; VBG pH 7.21 (7.32-7.43); VBG pO2 65 mmHg
[2023-11-09 00:05] LABS: Venous Blood Gas Refer to POC result
[2023-11-09] MEDS: LORazepam 2 MG/ML VIAL IVPUSH (00:05)
[2023-11-09] MEDS: Furosemide 40 MG/4 ML VIAL IVPUSH (00:05)
--- NOTE | 2023-11-09 00:07 | PC.NURSE ---
pt changed and repositioned at this time. pt removed IV access, new access gained, 18G placed in left AC. pt medicated per jan.
--- NOTE | 2023-11-09 00:39 | PC.NURSE ---
pt placed on bipap at this time. 35% o2, sating 93%.
--- NOTE | 2023-11-09 05:15 | PC.NURSE ---
pt resting with BIPAP in place at this time, no acute distress noted. pt vss.
[2023-11-09 05:29] LABS: Venous Blood Gas Refer to POC result
[2023-11-09 05:33] LABS: VBG Base Excess 6.7 mmol/L; VBG HCO3 36 mmol/L (22-26); VBG pCO2 73 mmHg; VBG pH 7.29 (7.32-7.43); VBG pO2 38 mmHg
--- NOTE | 2023-11-09 06:17 | PC.NURSE ---
respiratory at bedside to assess pt. pt currently on BIPAP tolerating well. pt output 700ml yellow urine at this time.
[2023-11-09] MEDS: Bumetanide 1 MG/4 ML VIAL IVPUSH (06:26)
[2023-11-09 07:36] LABS: Anion Gap 17 (12-20); Blood Urea Nitrogen 26 mg/dL (9-16); Calcium 8.8 mg/dL (8.4-10.2); Carbon Dioxide 26 mmol/L (22-29); Chloride 102 mmol/L (96-108); Creatinine Clr Calc Pharmacy 99.1; Estimated Glomerular Filt Rate > 60; Glucose Random 153 mg/dL (60-115); Potassium 5.6 mmol/L (3.3-5.1); Sodium 139 mmol/L (135-145)
[2023-11-09 08:41] LABS: Troponin-I High Sensitivity 62.8 ng/L (<3.5-17.0)
[2023-11-09 12:01] LABS: Phosphorus 4.3 mg/dL (2.7-4.5)
[2023-11-09 12:10] LABS: B Type Natriuretic Peptide 307 pg/mL (<100)
[2023-11-09] MEDS: Heparin Sodium,Porcine 5,000 UNIT/ML VIAL 5000 UNIT SUBCUT ×2 (12:21→19:32)
--- NOTE | 2023-11-09 12:54 | PHA.MEDREC ---
Pharmacy Consult ? Medication Reconciliation Pharmacy has completed the medication reconciliation. Patient does not know if they take pravastatin 20 mg daily. Called pharmacy and they state patient has not been filling pravastatin since April of 2023. Leaving off med rec. Patient doesn't know if they should be on it or not.
[2023-11-09 13:37] LABS: ABG HCO3 40 mmol/L (22-26); ABG pCO2 59 mmHg (32-45); ABG pH 7.43 (7.35-7.45); ABG pO2 68 mmHg (83-108)
--- NOTE | 2023-11-09 14:18 | PC.NURSE ---
provider questioned about ulrich need, states to insert anyway. ulrich inserted. pt removed from bipap and on nc tolerates well. monitor co2 and o2 goal is 90%
[2023-11-09 14:39] LABS: Anion Gap 13 (12-20); Blood Urea Nitrogen 23 mg/dL (9-16); Calcium 9.2 mg/dL (8.4-10.2); Carbon Dioxide 36 mmol/L (22-29); Chloride 98 mmol/L (96-108); Creatinine Clr Calc Pharmacy 97.6; Estimated Glomerular Filt Rate > 60; Glucose Random 103 mg/dL (60-115); Potassium 4.1 mmol/L (3.3-5.1); Sodium 143 mmol/L (135-145)
[2023-11-09] MEDS: acetaZOLAMIDE sodium 500 MG VIAL 375 MG IVPUSH ×2 (14:41→20:39)
[2023-11-09] MEDS: Albuterol/Iprat 2.5/0.5MG 3 ML AMPUL.NEB INHALE ×2 (14:58→18:23)
--- NOTE | 2023-11-09 15:40 | PM.CCHP ---
History of Present Illness Date of Service: 11/09/23 Chief Complaint: Dyspnea, confusion, and hypoxia 63-year-old lady active 40+ pack-year smoker, with underlying COPD, opioid dependence now on Suboxone admitted on 11/09/2023 with dyspnea, confusion, and hypoxia. On ER evaluation patient with CO2 retention requiring BiPAP support started on empiric treatment for COPD exacerbation and pulmonary edema. Patient unable to be titrated off BiPAP, admitted to intensive care unit. Review of Systems Constitutional: Constitutional: Denies daytime sleepiness, Denies excessive sweating, Denies fatigue, Denies fever(s), Denies lethargy, Denies malaise, Denies night sweats, Denies snoring and Denies weight loss Eyes: Eyes: Denies blurry vision and Denies itchy eyes ENT: Denies nasal congestion, Denies post nasal drip, Denies sinus pain, Denies sinus pressure and Denies other ( Thrush) Cardiovascular: Cardiovascular: Denies chest pain, Reports pedal edema, Reports dyspnea, Reports orthopnea and Denies paroxysmal nocturnal dyspnea Respiratory: Respiratory: Denies cough, Denies hemoptysis, Denies excessive phlegm production, Reports dyspnea, Denies snoring and Denies wheezing Gastrointestinal: Gastrointestinal: Denies abdominal pain and Denies heartburn Musculoskeletal: Musculoskeletal: Denies myalgias, Denies arthralgias and Denies joint swelling Integumentary/Breasts: Skin/Breast: Denies rash Neurologic: Denies memory loss and Denies seizure-like activity Psychiatric: Psychiatric: Denies abnormal sleep pattern, Denies anxiety and Denies memory loss Endocrine: Endocrine: Denies excessive sweating, Denies fatigue and Denies heat intolerance Hematologic/Lymphatic: Hematologic/Lymphatic: Denies easy bruising Allergic/Immunologic: Allergic/Immunologic: Denies itchy eyes, Denies seasonal rhinorrhea and Denies wheezing PMFSH Past Medical History Medical History Mammogram normal Anxiety Nausea Annual physical exam Tobacco dependence COPD (chronic obstructive pulmonary disease) Ankle pain, left Obese GERD (gastroesophageal reflux disease) Fibromyalgia Hyperlipidemia Insomnia Depression Anxiety Derangement of right knee Family History Family History Father No problems noted. Mother Breast cancer Throat cancer Substance use disorder Maternal Grandmother Alcoholism Maternal Grandfather No problems noted. Paternal Grandmother No problems noted. Paternal Grandfather No problems noted. Son No problems noted. Daughter No problems noted. Sister Substance use disorder Surgical History Surgical History H/O colonoscopy History of arthroscopy of shoulder History of arthroscopy of shoulder History of section History of lumpectomy of left breast History of repair of right rotator cuff History of total left knee replacement (TKR) History of tubal ligation Hx of left knee surgery Hx of right knee surgery Social History Social History Household Members: Spouse Household Members Other:: Employed retail counter Housing: House Do you presently have visiting nurse or other home services: No Alcohol intake: never Patient Tobacco Use Status: Current everyday Tobacco user Tobacco use type: Cigarette Cigarette Packs Per Day: 1 Cigarettes Per Day: 20.0 Years Smoked: 45 Smoked in Last 30 Days: No e-Cigarette/Vaping Use: Former Use Use of substances other than those prescribed or required for medical reasons: No Substance Use Type: Marijuana Last Used Substance: Days (ago) Have you been hit, kicked, punched, or otherwise hurt by someone within the past year? If so, by whom?: No Do you feel safe in your current relationship?: No Is there a partner from a previous relationship who is making you feel unsafe now?: No Are you made to feel afraid or neglected: No Advance Directives: No Advance Directives Information Provided: Yes (hcp) Do you have thoughts of harming others: None Do you have a plan to hurt others: No Plan Recently lost weight without trying: No Nutrition Risks: No Nutritional Risk Patient : No : No Poor oral hygiene: No Current occupational status: employed Cognitive needs: No Hearing needs: No Vision needs: No Meds Allergies Allergy/AdvReac Type Severity Reaction Status Date / Time No Known Allergies Allergy Verified 11/08/23 20:00 Active Medications: Current Medications Acetazolamide (Acetazolamide Sodium 500 Mg Vial) 375 mg IVPUSH BID JASMYNE Last Admin: 11/09/23 14:41 Dose: 375 mg Albuterol/Ipratropium (Albuterol/Iprat 2.5/0.5mg 3 Ml Ampul.Neb) 3 ml INHALE RQ6H WHILE AWAKE [facility] Last Admin: 11/09/23 14:58 Dose: 3 ml Buprenorphine/Naloxone (Buprenorphine/Naloxone 8/2 Mg Film) 1 film SUBLINGUAL DAILY [facility] Heparin Sodium (Porcine) (Heparin Sodium,Porcine 5,000 Unit/Ml Vial) 5,000 unit SUBCUT Q8H [facility] Last Admin: 11/09/23 12:21 Dose: 5,000 unit Home Medications Medication Instructions Recorded Confirmed Last Taken Type albuterol sulfate 90 mcg/actuation 2 puff inhalation Q6H PRN 11/09/23 11/09/23 Unknown History aerosol inhaler Shortness Of Breath Or Wheezing buprenorphine 12 mg-naloxone 3 mg 1 film sublingual DAILY 11/09/23 11/09/23 11/08/23 History sublingual film omeprazole 20 mg capsule,delayed 20 mg PO DAILY@0630 11/09/23 11/09/23 11/08/23 History release Physical Exam Vital Signs: Vital Signs: Last Vital Signs Temp 97.7 F 11/09/23 14:00 Pulse 103 H 11/09/23 15:02 Resp 19 11/09/23 15:02 BP 146/75 H 11/09/23 15:00 Pulse Ox 94 11/09/23 15:00 O2 Del Method Nasal Cannula 11/09/23 15:00 O2 Flow Rate 1 11/09/23 15:00 FiO2 30 11/09/23 14:00 BMI result Body Mass Index 39.4 Const: General: no acute distress and alert Nutritional Appearance: obese Orientation/consciousness: Other orientation findings ( oriented) HEENT: Head: Yes atraumatic Eyes: General: appearance normal, both eyes and all related structures Sclerae: sclerae normal EOM: EOMs intact bilaterally Neck: Neck: Yes supple Lymphatic: no lymphadenopathy noted Resp: Effort & Inspection: normal respiratory effort and no use of accessory muscles Auscultation: clear to auscultation bilaterally Cardio: Rate: regular rate Rhythm: regular rhythm Heart sounds: no gallops, no murmurs and no rubs Skin: General skin exam: other ( warm) Extrem: General: No clubbing, No cyanosis and Yes edema ( 1+ bilateral) Results Labs 11/08/23 20:43 11/09/23 14:19 Labs: Laboratory Results - last 24 hr 01/12/0111/08/23 11/08/23 20:43 20:43 20:49 MCV 88.7 MCH 26.9 L MCHC 30.4 L RDW 14.1 Plt Count 305 MPV 9.9 Immature Gran % (Auto) 0.2 Neut % (Auto) 76.3 H Lymph % (Auto) 13.5 L [place] % (Auto) 9.6 Eos % (Auto) 0.2 Baso % (Auto) 0.2 Lymph # (Auto) 1.1 L [place] # (Auto) 0.8 Eos # (Auto) 0.0 Baso # (Auto) 0.0 Abs Immat Gran (auto) 0.02 Absolute Neuts (auto) 6.3 Absolute Nucleated RBC 0.000 Nucleated RBC % (auto) 0.0 PT 14.7 H INR 1.2 H ABG pH at Pt Temp ABG pCO2 at Pt Temp ABG pO2 at Pt Temp ABG HCO3 ABG Base Excess (Actual) VBG pH 7.26 L VBG pCO2 76 VBG pO2 90 VBG HCO3 35 H VBG O2 Saturation 98.0 VBG Base Excess 4.9 Anion Gap 10 L Estim Creat Clear Calc 103.9 Estimated GFR > 60 Random Glucose 126 H Lactic Acid 0.8 Calcium 8.8 D Phosphorus Total Bilirubin 0.5 Direct Bilirubin 0.2 AST 21 ALT 15 Alkaline Phosphatase 122 H B-Natriuretic Peptide 761 H 787 H Total Protein 7.8 Albumin 3.6 Influenza Type A (PCR) NEGATIVE Influenza Type B (PCR) NEGATIVE RSV RNA Qual (PCR) NEGATIVE SARS-CoV-2 RNA (RT-PCR) NEGATIVE 11/08/23 11/09/23 11/09/23 23:57 05:27 06:55 MCV MCH MCHC RDW Plt Count MPV Immature Gran % (Auto) Neut % (Auto) Lymph % (Auto) [place] % (Auto) Eos % (Auto) Baso % (Auto) Lymph # (Auto) [place] # (Auto) Eos # (Auto) Baso # (Auto) Abs Immat Gran (auto) Absolute Neuts (auto) Absolute Nucleated RBC Nucleated RBC % (auto) PT INR ABG pH at Pt Temp ABG pCO2 at Pt Temp ABG pO2 at Pt Temp ABG HCO3 ABG Base Excess (Actual) VBG pH 7.21 L 7.29 L VBG pCO2 85 73 VBG pO2 65 38 VBG HCO3 35 H 36 H VBG O2 Saturation 89.0 57.0 VBG Base Excess 3.5 6.7 Anion Gap 17 Estim Creat Clear Calc 99.1 Estimated GFR > 60 Random Glucose 153 H Lactic Acid Calcium 8.8 Phosphorus Total Bilirubin Direct Bilirubin AST ALT Alkaline Phosphatase B-Natriuretic Peptide Total Protein Albumin Influenza Type A (PCR) Influenza Type B (PCR) RSV RNA Qual (PCR) SARS-CoV-2 RNA (RT-PCR) 11/09/23 11/09/23 11/09/23 11:42 13:31 14:19 MCV MCH MCHC RDW Plt Count MPV Immature Gran % (Auto) Neut % (Auto) Lymph % (Auto) [place] % (Auto) Eos % (Auto) Baso % (Auto) Lymph # (Auto) [place] # (Auto) Eos # (Auto) Baso # (Auto) Abs Immat Gran (auto) Absolute Neuts (auto) Absolute Nucleated RBC Nucleated RBC % (auto) PT INR ABG pH at Pt Temp 7.43 ABG pCO2 at Pt Temp 59 H ABG pO2 at Pt Temp 68 L ABG HCO3 40 H ABG Base Excess (Actual) 13.0 VBG pH VBG pCO2 VBG pO2 VBG HCO3 VBG O2 Saturation VBG Base Excess Anion Gap 13 Estim Creat Clear Calc 97.6 Estimated GFR > 60 Random Glucose 103 Lactic Acid Calcium 9.2 Phosphorus 4.3 Total Bilirubin Direct Bilirubin AST ALT Alkaline Phosphatase B-Natriuretic Peptide 307 H Total Protein Albumin Influenza Type A (PCR) Influenza Type B (PCR) RSV RNA Qual (PCR) SARS-CoV-2 RNA (RT-PCR) Imaging Radiologist's Impressions: Impressions Chest X-Ray 11/08/23 20:15 IMPRESSION: Findings suggesting pulmonary edema versus atypical infectious/inflammatory process. Prominent cardiomediastinal silhouette could be related with cardiomegaly, further evaluation with bedside echocardiogram as clinically warranted. Assessment and Plan (1) Acute respiratory failure with hypoxia and hypercapnia: Status: Acute (2) Congestive heart failure: Status: Acute (3) COPD (chronic obstructive pulmonary disease): Status: Acute Plan Assessment: 63-year-old lady admitted with acute hypoxic and hypercapnic respiratory failure likely secondary to underlying exacerbation of congestive heart failure, requiring BiPAP support. Plan: Neuro: Metabolic encephalopathy secondary to CO2 narcosis, resolved with BiPAP support. Cardiac: Likely underlying acute on chronic diastolic congestive heart failure. Continue acetazolamide. 2D echo is pending. Pulmonary: acute hypoxic and hypercapnic respiratory failure requiring BiPAP support, continue to titrate off as tolerated. Renal: No acute issues. Endo: No acute issues. GI: No acute issues. ID: No acute issues Heme/Onc: No acute issues. Psych: No acute issues. Miscellaneous: No acute issues. Prophylaxis: Heparin Diet: nothing by mouth Critical care time spent: 45 minutes
[2023-11-09 15:41] LABS: Amphetamine Screen Urine Not Detected (Not Detect); Barbiturates, Urine Not Detected (Not Detect); Benzodiazepines Screen Urine Not Detected (Not Detect); Cannabinoid Screen Urine Not Detected (Not Detect); Cocaine Screen Urine Not Detected (Not Detect); Fentanyl, urine Not Detected (Not Detect); Opiate Screen Urine POSITIVE (Not Detect); Phencyclidine Screen Urine Not Detected (Not Detect)
[2023-11-09] MEDS: Buprenorphine/Naloxone 8/2 mg FILM 1 FILM SUBLINGUAL (17:06)
--- NOTE | 2023-11-09 17:21 | PC.NURSE ---
Acquired care at 1500. pt is in bed with families at bedside. On 1L nasal cannula. slightly anxious asking for her suboxone. Pharmacy was delayed in bringing the meds. Pt kept on removing her nasal cannula. O2 sats at 88-90% on 1L. Given nebs treatment by RT. Sinus tach on monitor/sinus rhythm on monitor.
[2023-11-10] VITALS (27 sets, daily range): BP systolic 96–154; BP diastolic 46–88; PULSE 70–114; RESP 11–22; TEMP 36.6–37.2; O2SAT 91–100; BMI 38.1
[2023-11-10] MEDS: Heparin Sodium,Porcine 5,000 UNIT/ML VIAL 5000 UNIT SUBCUT ×3 (03:24→20:07)
[2023-11-10 05:06] LABS: VBG Base Excess 9.3 mmol/L; VBG HCO3 37 mmol/L (22-26); VBG pCO2 65 mmHg; VBG pH 7.36 (7.32-7.43); VBG pO2 57 mmHg
[2023-11-10 05:13] LABS: Venous Blood Gas Refer to POC result
[2023-11-10 05:25] LABS: MANUAL DIFF FLAG NO
[2023-11-10 05:26] LABS: Basophils Percent Auto 0.2 % (0-2); Eosinophils Percent Auto 0.5 % (0-4); Hematocrit 42.5 % (37.0-47.0); Hemoglobin 12.8 g/dl (12.0-16.0); Imm Gran Abs Auto 0.02 X10*3/uL (0.00-0.03); Imm Gran Pct Auto 0.3 % (0.0-0.4); Lymphocytes Percent Auto 15.1 % (20-40); Mean Corpuscular HGB Conc 30.1 g/dl (31.0-35.0); Mean Corpuscular Hemoglobin 26.8 pg (27.0-33.0); Mean Corpuscular Volume 88.9 fL (80.0-98.0); Mean Platelet Volume 9.8 fL (9.4-12.3); Monocytes Absolute Auto 0.8 X10*3/uL (0.1-1.2); Monocytes Percent Auto 11.7 % (2-11); Neutrophils Absolute Auto 4.7 x10*3/uL (2.0-8.3); Neutrophils Percent Auto 72.2 % (45-73); Platelet Count 299 X10*3/uL (160-400); Red Blood Count 4.78 X10*6/uL (4.20-5.50); Red Cell Distribution Width 14.1 % (11.0-16.0); White Blood Count 6.5 X10*3/uL (4.8-10.8)
[2023-11-10 05:43] LABS: Albumin Level 3.4 g/dL (3.5-5.0); Anion Gap 8 (12-20); Blood Urea Nitrogen 25 mg/dL (9-16); Calcium 8.9 mg/dL (8.4-10.2); Carbon Dioxide 36 mmol/L (22-29); Chloride 99 mmol/L (96-108); Creatinine Clr Calc Pharmacy 90.7; Estimated Glomerular Filt Rate > 60; Glucose Random 86 mg/dL (60-115); Magnesium 2.2 mg/dL (1.6-2.6); Phosphorus 3.9 mg/dL (2.7-4.5); Potassium 3.7 mmol/L (3.3-5.1); Sodium 139 mmol/L (135-145)
[2023-11-10] MEDS: Albuterol/Iprat 2.5/0.5MG 3 ML AMPUL.NEB INHALE ×3 (07:20→19:22)
[2023-11-10] MEDS: Buprenorphine/Naloxone 8/2 mg FILM 1 FILM SUBLINGUAL (09:15)
[2023-11-10] MEDS: acetaZOLAMIDE sodium 500 MG VIAL 375 MG IVPUSH ×2 (09:41→22:05)
--- NOTE | 2023-11-10 10:13 | PM.CCPN ---
Subjective Subjective Date of Service: 11/10/23 Interval History: 63-year-old lady active 40+ pack-year smoker, with underlying COPD, opioid dependence now on Suboxone admitted on 11/09/2023 with dyspnea, confusion, and hypoxia. On ER evaluation patient with CO2 retention requiring BiPAP support started on empiric treatment for COPD exacerbation and pulmonary edema. Patient unable to be titrated off BiPAP, admitted to intensive care unit. Diuresed and titrated off BiPAP overnight. Critical Care Time (minutes): 45 Physical Exam Vital Signs: Vital Signs: Last Vital Signs Temp 98.5 F 11/10/23 08:00 Pulse 80 11/10/23 09:00 Resp 15 11/10/23 09:00 BP 142/60 H 11/10/23 09:00 Pulse Ox 95 11/10/23 09:00 O2 Del Method BiPAP 11/10/23 09:00 O2 Flow Rate 1 11/09/23 22:00 FiO2 40 11/10/23 09:00 BMI result Body Mass Index 38.1 Const: General: no acute distress, alert and awake Nutritional Appearance: obese Eyes: Sclerae: sclerae normal EOM: EOMs intact bilaterally Neck: Neck: Yes no lymphadenopathy, Yes trachea midline and Yes supple Resp: Effort & Inspection: normal respiratory effort and no respiratory distress Auscultation: clear to auscultation bilaterally Cardio: Rate: regular rate Rhythm: regular rhythm Heart sounds: no gallops, no murmurs and no rubs GI: Palpation (GI): Soft to palpation and Other GI palpation findings present ( Nontender) Auscultation: normal bowel sounds Extrem: General: No clubbing, No cyanosis and Yes edema (trace bilateral) Objective Data Labs 11/10/23 05:00 11/10/23 05:00 Labs: Laboratory Results - last 24 hr 11/09/23 11/09/23 11/09/23 11:42 13:31 13:41 WBC RBC Hgb Hct MCV MCH MCHC RDW Plt Count MPV Immature Gran % (Auto) Neut % (Auto) Lymph % (Auto) [place] % (Auto) Eos % (Auto) Baso % (Auto) Lymph # (Auto) [place] # (Auto) Eos # (Auto) Baso # (Auto) Abs Immat Gran (auto) Absolute Neuts (auto) Absolute Nucleated RBC Nucleated RBC % (auto) O2 Saturation Not Reportable ABG pH at Pt Temp 7.43 ABG pCO2 at Pt Temp 59 H ABG pO2 at Pt Temp 68 L ABG HCO3 40 H ABG Base Excess (Actual) 13.0 VBG pH VBG pCO2 VBG pO2 VBG HCO3 VBG O2 Saturation VBG Base Excess Sodium Potassium Chloride Carbon Dioxide Anion Gap BUN Creatinine Estim Creat Clear Calc Estimated GFR Random Glucose Calcium Phosphorus 4.3 Magnesium B-Natriuretic Peptide 307 H Albumin Urine Opiates Screen POSITIVE H Urine Fentanyl Screen Not Detected Ur Barbiturates Screen Not Detected Ur Phencyclidine Scrn Not Detected Ur Amphetamines Screen Not Detected U Benzodiazepines Scrn Not Detected Urine Cocaine Screen Not Detected U Marijuana (THC) Screen Not Detected 11/09/23 11/10/23 14:19 05:00 WBC 6.5 RBC 4.78 Hgb 12.8 Hct 42.5 MCV 88.9 MCH 26.8 L MCHC 30.1 L RDW 14.1 Plt Count 299 MPV 9.8 Immature Gran % (Auto) 0.3 Neut % (Auto) 72.2 Lymph % (Auto) 15.1 L [place] % (Auto) 11.7 H Eos % (Auto) 0.5 Baso % (Auto) 0.2 Lymph # (Auto) 1.0 L [place] # (Auto) 0.8 Eos # (Auto) 0.0 Baso # (Auto) 0.0 Abs Immat Gran (auto) 0.02 Absolute Neuts (auto) 4.7 Absolute Nucleated RBC 0.000 Nucleated RBC % (auto) 0.0 O2 Saturation ABG pH at Pt Temp ABG pCO2 at Pt Temp ABG pO2 at Pt Temp ABG HCO3 ABG Base Excess (Actual) VBG pH 7.36 VBG pCO2 65 VBG pO2 57 VBG HCO3 37 H VBG O2 Saturation 84.0 VBG Base Excess 9.3 Sodium 143 139 Potassium 4.1 D 3.7 Chloride 98 99 Carbon Dioxide 36 H 36 H Anion Gap 13 8 L BUN 23 H 25 H Creatinine 0.66 0.71 Estim Creat Clear Calc 97.6 90.7 Estimated GFR > 60 > 60 Random Glucose 103 86 Calcium 9.2 8.9 Phosphorus 3.9 Magnesium 2.2 B-Natriuretic Peptide Albumin 3.4 L Urine Opiates Screen Urine Fentanyl Screen Ur Barbiturates Screen Ur Phencyclidine Scrn Ur Amphetamines Screen U Benzodiazepines Scrn Urine Cocaine Screen U Marijuana (THC) Screen Microbiology Microbiology Results: Microbiology 11/08/23 20:44 Blood - Venous Blood Culture - Preliminary No growth after 24 hours. 11/08/23 20:44 Blood - Venous Blood Culture - Preliminary No growth after 24 hours. Progress Note: A&P Assessment and plan (1) Congestive heart failure: Status: Acute (2) Acute respiratory failure with hypoxia and hypercapnia: Status: Acute (3) COPD (chronic obstructive pulmonary disease): Status: Acute Plan Assessment: 63-year-old lady admitted with acute hypoxic and hypercapnic respiratory failure likely secondary to underlying exacerbation of congestive heart failure, requiring BiPAP support. Plan: Neuro: Metabolic encephalopathy secondary to CO2 narcosis, resolved with BiPAP support. Cardiac: Likely underlying acute on chronic diastolic congestive heart failure. Continue acetazolamide. 2D echo is pending. Pulmonary: acute hypoxic and hypercapnic respiratory failure requiring BiPAP support, now titrated off. Renal: No acute issues. Endo: No acute issues. GI: No acute issues. ID: No acute issues Heme/Onc: No acute issues. Psych: No acute issues. Miscellaneous: No acute issues. Prophylaxis: Heparin Diet: regular Critical care time spent: 45 minutes Quality Stroke Does the patient have a stroke diagnosis?: No VTE Prior VTE?: No VTE Risk Level:: Medical - moderate - high VTE Device Contraindication: Treatment Not Indicated VTE Drug Contraindication: N/A - Med Ordered
--- NOTE | 2023-11-10 11:18 | MHC.CM.PN ---
Addendum entered by Naomi Mclaughlin RN 11/10/23 15:19: CM RECEIVED CALL BACK FROM PT'S [facility] WHO REPORTS DOES NOT HAVE A HCP, DOES USE A WALKER FROM TIME TO TIME AND HAS CRUTCHES, A BEDSIDE COMMODE AND IS PRIMARILY INDEP W/CARE, PT DOES NOT HAVE ANY HOME SERVICES, BELIEVES PT WOULD BE AGREEABLE TO HOME SERVICES VS STR. Original Note: EMR REVIEWED, PT ADMITTED TO ICU ON BIPAP, PT OFF BIPAP AND PLAN TO BE TRANSFERRED TO MEDICAL UNIT. WHEN CM ATTEMPTED TO MEET W/PT HOWEVER PT WAS ABLE TO GIVE LIMITED INFORMATION AND CM UNSURE IF ACCURATE, PT GAVE CM VERBAL CONSENT TO CONTACT HER [facility], CM ATTEMPTED TO CONTACT [facility] AT 11:02AM AT ONLY NUMBER LISTED ON FILE, DETAILED MESSAGE LEFT. PT DOES DENY USE OF DME/SERVICES, PT COULD NOT RECALL PCP AND NO HCP ON FILE. PER RECORDS PT ACTIVE W/STEVO DONG FOR PRIMARY CARE, CM WILL VERIFY HCP WHEN RETURNS CALL.
[2023-11-11] VITALS (9 sets, daily range): BP systolic 121–149; BP diastolic 64–76; PULSE 73–107; RESP 18–20; TEMP 36.1–37.1; O2SAT 86–976; BMI 37.8
[2023-11-11] MEDS: Heparin Sodium,Porcine 5,000 UNIT/ML VIAL 5000 UNIT SUBCUT (04:00)
[2023-11-11 06:37] LABS: MANUAL DIFF FLAG NO
[2023-11-11 06:39] LABS: Venous Blood Gas Refer to POC result
[2023-11-11 06:40] LABS: Basophils Percent Auto 0.1 % (0-2); Eosinophils Absolute Auto 0.1 X10*3/uL (0.0-0.4); Hematocrit 41.7 % (37.0-47.0); Hemoglobin 12.5 g/dl (12.0-16.0); Imm Gran Abs Auto 0.05 X10*3/uL (0.00-0.03); Imm Gran Pct Auto 0.7 % (0.0-0.4); Lymphocytes Percent Auto 13.7 % (20-40); Mean Corpuscular Hemoglobin 27.1 pg (27.0-33.0); Mean Corpuscular Volume 90.5 fL (80.0-98.0); Mean Platelet Volume 9.8 fL (9.4-12.3); Monocytes Percent Auto 13.6 % (2-11); Neutrophils Absolute Auto 5.1 x10*3/uL (2.0-8.3); Neutrophils Percent Auto 70.9 % (45-73); Platelet Count 273 X10*3/uL (160-400); Red Blood Count 4.61 X10*6/uL (4.20-5.50); Red Cell Distribution Width 14.3 % (11.0-16.0); White Blood Count 7.1 X10*3/uL (4.8-10.8)
[2023-11-11 06:54] LABS: Albumin Level 3.1 g/dL (3.5-5.0); Anion Gap 11 (12-20); Blood Urea Nitrogen 20 mg/dL (9-16); Calcium 9.1 mg/dL (8.4-10.2); Carbon Dioxide 31 mmol/L (22-29); Chloride 102 mmol/L (96-108); Estimated Glomerular Filt Rate > 60; Glucose Random 88 mg/dL (60-115); Magnesium 2.2 mg/dL (1.6-2.6); Phosphorus 3.9 mg/dL (2.7-4.5); Potassium 4.2 mmol/L (3.3-5.1); Sodium 140 mmol/L (135-145)
[2023-11-11] MEDS: Albuterol/Iprat 2.5/0.5MG 3 ML AMPUL.NEB INHALE ×3 (08:49→19:42)
--- NOTE | 2023-11-11 09:15 | HO.PM.IMPN ---
Subjective Subjective Date of Service: 11/11/23 Interval History: sob better Physical Exam Vital Signs: Vital Signs: Last Vital Signs Temp 98.3 F 11/11/23 07:27 Pulse 95 11/11/23 08:53 Resp 20 11/11/23 08:53 BP 141/64 H 11/11/23 07:27 Pulse Ox 976 H 11/11/23 07:27 O2 Del Method Nasal Cannula 11/11/23 07:27 O2 Flow Rate 2 11/11/23 07:27 FiO2 40 11/10/23 09:00 BMI result Body Mass Index 37.8 General: AO X 3, no acute distress Resp: rhocnhi bilateral, no accessory muscles used CVS: S1,S2,RRR GI: soft, non tender, non distended Neuro: motor grossly intact, alert Psych: appropriate affect, appropriate insight Objective Data Active Medications Albuterol/Ipratropium (Albuterol/Iprat 2.5/0.5mg 3 Ml Ampul.Neb) 3 ml INHALE RQ6H WHILE AWAKE [facility] Last Admin: 11/11/23 08:49 Dose: 3 ml Documented By: MAR Azithromycin (Azithromycin 500 Mg Tablet) 500 mg PO DAILY [facility] Buprenorphine/Naloxone (Buprenorphine/Naloxone 8/2 Mg Film) 1 film SUBLINGUAL DAILY [facility] Last Admin: 11/10/23 09:15 Dose: 1 film Documented By: MORENA Duloxetine HCl (Duloxetine Hcl 60 Mg Capsule.) 60 mg PO DAILY [facility] Furosemide (Furosemide 40 Mg Tablet) 40 mg PO DAILY [facility]; Protocol Heparin Sodium (Porcine) (Heparin Sodium,Porcine 5,000 Unit/Ml Vial) 5,000 unit SUBCUT Q8H [facility] Last Admin: 11/11/23 04:00 Dose: 5,000 unit Documented By: ANTOIC Omeprazole (Omeprazole 20 Mg Capsule.) 20 mg PO DAILY@0630 [facility] Prednisone (Prednisone 20 Mg Tablet) 40 mg PO DAILY [facility] Labs 11/11/23 06:32 11/11/23 06:32 Labs: Laboratory Results - last 24 hr 11/11/23 11/11/23 06:32 06:36 MCV 90.5 MCH 27.1 MCHC 30.0 L RDW 14.3 Plt Count 273 MPV 9.8 Immature Gran % (Auto) 0.7 H Neut % (Auto) 70.9 Lymph % (Auto) 13.7 L [place] % (Auto) 13.6 H Eos % (Auto) 1.0 Baso % (Auto) 0.1 Lymph # (Auto) 1.0 L [place] # (Auto) 1.0 Eos # (Auto) 0.1 Baso # (Auto) 0.0 Abs Immat Gran (auto) 0.05 H Absolute Neuts (auto) 5.1 Absolute Nucleated RBC 0.000 Nucleated RBC % (auto) 0.0 VBG pH 7.34 VBG pCO2 64 VBG pO2 40 VBG HCO3 34 H VBG O2 Saturation 63.0 VBG Base Excess 6.9 Anion Gap 11 L Estim Creat Clear Calc 94.0 Estimated GFR > 60 Random Glucose 88 Calcium 9.1 Phosphorus 3.9 Magnesium 2.2 Albumin 3.1 L Microbiology Microbiology Results: Microbiology 11/08/23 20:44 Blood Culture - Preliminary Blood - Venous No growth after 48 hours. 11/08/23 20:44 Blood Culture - Preliminary Blood - Venous No growth after 48 hours. Assessment and Plan (1) Congestive heart failure: Status: Acute Plan 63F PMH obesity, copd, mood disorder, opiate dependence, presented with sob and confusion, admitted to icu for bipap and iv diuresis, improved, downgraded 11/10/23. acute hypoxic and hypercapneic respiratory failure complicated by acute metabolic encephalopathy due to COPD with acute decompensation and acute on chronic diastolic CHF Mental status back to baseline Change diuretics to oral maintenance Continue steroids, azithromycin, bronchodilators CTA PE negative, showing right middle lobe atelectasis - incentive spirometry, outpatient follow-up to rule out underlying lesion Obesity Weight loss recommended Opiate dependence Continue Suboxone Mood disorder Cymbalta DVT prophylaxis with Lovenox' full code reason for continued hospitalization:hypoxia Quality Stroke Does the patient have a stroke diagnosis?: No VTE Prior VTE?: No VTE Risk Level:: Medical - moderate - high VTE Device Contraindication: Treatment Not Indicated VTE Drug Contraindication: N/A - Med Ordered
--- NOTE | 2023-11-11 23:51 | PC.NURSE ---
Report given to oncoming RN assuming care of patient at this time.
[2023-11-12] VITALS (9 sets, daily range): BP systolic 126–162; BP diastolic 61–85; PULSE 90–98; RESP 18–21; TEMP 36.4–37.1; O2SAT 93–98; BMI 37.2
[2023-11-12] MEDS: Albuterol/Iprat 2.5/0.5MG 3 ML AMPUL.NEB INHALE ×3 (08:31→19:33)
--- NOTE | 2023-11-12 10:36 | HO.PM.IMPN ---
Subjective Subjective Date of Service: 11/12/23 Interval History: still sob, more confused today Physical Exam Vital Signs: Vital Signs: Last Vital Signs Temp 98 F 11/12/23 07:17 Pulse 94 11/12/23 08:32 Resp 18 11/12/23 08:32 BP 133/73 11/12/23 07:17 Pulse Ox 94 11/12/23 07:17 O2 Del Method Nasal Cannula 11/12/23 07:17 O2 Flow Rate 2 11/12/23 07:17 FiO2 40 11/10/23 09:00 BMI result Body Mass Index 37.2 General: AO X 3, no acute distress Resp: rhocnhi bilateral, no accessory muscles used CVS: S1,S2,RRR GI: soft, non tender, non distended Neuro: motor grossly intact, alert Psych: appropriate affect, appropriate insight Objective Data Active Medications Albuterol/Ipratropium (Albuterol/Iprat 2.5/0.5mg 3 Ml Ampul.Neb) 3 ml INHALE RQ6H WHILE AWAKE [facility] Last Admin: 11/12/23 08:31 Dose: 3 ml Documented By: KRYSTLE Azithromycin (Azithromycin 500 Mg Tablet) 500 mg PO DAILY [facility] Last Admin: 11/11/23 09:30 Dose: 500 mg Documented By: ALBERTO Buprenorphine/Naloxone (Buprenorphine/Naloxone 8/2 Mg Film) 1 film SUBLINGUAL DAILY [facility] Last Admin: 11/11/23 09:31 Dose: 1 film Documented By: ALBERTO Duloxetine HCl (Duloxetine Hcl 60 Mg Capsule.) 60 mg PO DAILY [facility] Last Admin: 11/11/23 09:31 Dose: 60 mg Documented By: ALBERTO Enoxaparin Sodium (Enoxaparin Sodium 40 Mg/0.4 Ml Syringe) 40 mg SUBCUT Q24H [facility] Last Admin: 11/11/23 09:31 Dose: 40 mg Documented By: ALBERTO Furosemide (Furosemide 40 Mg Tablet) 40 mg PO DAILY [facility]; Protocol Omeprazole (Omeprazole 20 Mg Capsule.) 20 mg PO DAILY@0630 [facility] Last Admin: 11/12/23 06:20 Dose: 20 mg Documented By: ANTOIC Prednisone (Prednisone 20 Mg Tablet) 40 mg PO DAILY [facility] Last Admin: 11/11/23 09:31 Dose: 40 mg Documented By: ALBERTO Labs 11/12/23 07:04 11/12/23 07:00 Labs: Laboratory Results - last 24 hr 11/12/23 11/12/23 07:00 07:04 MCV 87.4 MCH 26.4 L MCHC 30.2 L RDW 13.8 Plt Count 310 MPV 10.1 Absolute Nucleated RBC 0.000 Nucleated RBC % (auto) 0.0 Anion Gap 10 L Estim Creat Clear Calc 104.0 Estimated GFR > 60 Fasting Glucose 84 Calcium 9.3 Assessment and Plan (1) Congestive heart failure: Status: Acute Plan 63F PMH obesity, copd, mood disorder, opiate dependence, presented with sob and confusion, admitted to icu for bipap and iv diuresis, improved, downgraded 11/10/23. acute hypoxic and hypercapneic respiratory failure complicated by acute metabolic encephalopathy due to COPD with acute decompensation and acute on chronic diastolic CHF Mental status initially back to baseline but more confused today Change diuretics to oral maintenance Continue steroids, azithromycin, bronchodilators CTA PE negative, showing right middle lobe atelectasis - incentive spirometry, outpatient follow-up to rule out underlying lesion Obesity Weight loss recommended Opiate dependence Continue Suboxone Mood disorder Cymbalta DVT prophylaxis with Lovenox full code reason for continued hospitalization:hypoxia Quality Stroke Does the patient have a stroke diagnosis?: No VTE Prior VTE?: No VTE Risk Level:: Medical - moderate - high VTE Device Contraindication: Treatment Not Indicated VTE Drug Contraindication: N/A - Med Ordered
--- NOTE | 2023-11-12 12:06 | MHC.CM.PN ---
EMR REVIEWED, PER MD NOTES PT CONT'S TO BE SOB AND MORE CONFUSED TODAY, NO PLAN FOR DC AT THIS TIME, PT WILL NEED PT EVAL FOR DISPO, CM WILL CONT TO FOLLOW DC NEEDS.
[2023-11-13] VITALS (8 sets, daily range): BP systolic 155–162; BP diastolic 70–77; PULSE 80–101; RESP 16–20; TEMP 36.1–36.3; O2SAT 86–97; BMI 36.4
[2023-11-13] MEDS: Albuterol/Iprat 2.5/0.5MG 3 ML AMPUL.NEB INHALE (08:13)
[2023-11-13 09:06] LABS: VBG Base Excess 7.8 mmol/L; VBG HCO3 33 mmol/L (22-26); VBG pCO2 51 mmHg; VBG pH 7.42 (7.32-7.43); VBG pO2 48 mmHg
--- NOTE | 2023-11-13 09:43 | W.MHC.F2F ---
Service Date Service Date: 11/13/23 Encounter Date of encounter: 11/13/23 Reasons for Services Signs and symptoms assessed: yolanda Reason for intermediate: medication management, medication treatment and teach disease management Homebound: Leaving the home is medically contraindicated at this time without the asist of a device and/or another person due th the listed conditions above and below. Reason homebound: unsteady gait / fall risk Certification: Based on the above findings, I certify that this patient is confined to the home and needs intermittent intermediate care, physical therapy and/or speech therapy, or continues to need occupational therapy. The patient is under my care, and I have initiated the establishment of the plan of care. The patient will be followed by a physician who will periodically review the plan of care. Time Spent With Patient Time: Total time managing care of this patient today ____ minutes.
--- NOTE | 2023-11-13 09:44 | PM.DS ---
DS: Providers Provider Date of Service: 11/13/23 Date of admission: 11/09/23 11:27 Primary care physician: Mame Zamora MD DS: Diagnosis Discharge Diagnosis (1) Congestive heart failure: Status: Acute DS: Summary Hospital Course Hospital Course: from initial hpi: 63-year-old lady active 40+ pack-year smoker, with underlying COPD, opioid dependence now on Suboxone admitted on 11/09/2023 with dyspnea, confusion, and hypoxia. On ER evaluation patient with CO2 retention requiring BiPAP support started on empiric treatment for COPD exacerbation and pulmonary edema. Patient unable to be titrated off BiPAP, admitted to intensive care unit. hospital course: Patient was admitted for acute hypoxic and hypercapnic respiratory failure complicated by acute metabolic encephalopathy due to COPD with acute decompensation and acute on chronic diastolic CHF. She was admitted to the ICU for BiPAP and IV diuretics. Mental status slowly improved to baseline. Patient was weaned BiPAP and oxygen. She was given steroids, azithromycin, bronchodilators. On discharge will be started on Lasix 40 mg daily maintenance, 5 more days of prednisone and azithromycin. Patient had echo which showed diastolic dysfunction and right side dysfunction. There was concern for PE so CTA was done which was negative for PE but did show right middle lobe atelectasis, outpatient follow-up with Pulmonary as recommended. For obesity weight loss recommended. For opiate dependence was continued on Suboxone. For mood disorder was continued on Cymbalta. Patient is feeling better will be discharged home. Time Attestation Discharge coordination time: Greater than 30 minutes Quality: Safe Use of Opioids Does Pt have an Active Cancer Diagnosis on the Problem List?: No Quality: Stroke Does the patient have a stroke diagnosis?: No Physical Exam Vital Signs: Vital Signs: Last Vital Signs Temp 97.4 F 11/13/23 07:28 Pulse 92 11/13/23 08:16 Resp 16 11/13/23 08:16 BP 155/70 H 11/13/23 07:28 Pulse Ox 96 11/13/23 07:28 O2 Del Method Nasal Cannula 11/13/23 07:28 O2 Flow Rate 2 11/13/23 07:28 FiO2 40 11/10/23 09:00 BMI result Body Mass Index 36.4 General: AO X 3, no acute distress Resp: cta bilateral, no accessory muscles used CVS: S1,S2,RRR GI: soft, non tender, non distended Neuro: motor grossly intact, alert Psych: appropriate affect, appropriate insight DS: Data Data Completed and Pending Labs on day of discharge: Laboratory Results - last 24 hr 11/13/23 11/13/23 08:11 08:59 WBC 5.9 RBC 4.97 Hgb 13.1 Hct 42.8 MCV 86.1 MCH 26.4 L MCHC 30.6 L RDW 13.6 Plt Count 299 MPV 9.8 Absolute Nucleated RBC 0.000 Nucleated RBC % (auto) 0.0 VBG pH 7.42 VBG pCO2 51 VBG pO2 48 VBG HCO3 33 H VBG O2 Saturation 82.0 VBG Base Excess 7.8 Sodium 141 Potassium 3.3 Chloride 99 Carbon Dioxide 34 H Anion Gap 11 L BUN 18 H Creatinine 0.51 Estim Creat Clear Calc 121.0 Estimated GFR > 60 Fasting Glucose 80 Calcium 9.4 Preliminary micro results at discharge 11/08/23 20:44 Blood Culture - Preliminary Blood - Venous No growth after 48 hours. 11/08/23 20:44 Blood Culture - Preliminary Blood - Venous No growth after 48 hours. Discharge Plan Discharge Anticipated Discharge Date/Time: 11/13/23 09:37 Patient Disposition: Home Health Service Discharge Diagnosis: chf, copd Referrals: [facility] [Outside] - 1 Week Mame Zamora MD [Primary Care Provider] - 1 Week Eric Short MD [Physician] - 1 Week (RML atelectasis) Discharge Medications: New furosemide 40 mg Tablet 40 mg PO DAILY Qty: 30 0RF Protocol: Hold for SBP< HOLD for SBP < : 90 prednisone 20 mg Tablet 40 mg PO DAILY Qty: 10 0RF azithromycin 500 mg Tablet 500 mg PO DAILY Qty: 5 0RF Continued zolpidem 5 mg tablet 5 mg PO BEDTIME PRN (Reason: insomnia) Qty: 30 0RF Rx Instructions: avoid taking it daily duloxetine 60 mg capsule,delayed release(DR/EC) 60 mg PO DAILY Qty: 90 3RF buprenorphine-naloxone 12-3 mg film 1 film sublingual DAILY omeprazole 20 mg capsule,delayed release(DR/EC) 20 mg PO DAILY@0630 albuterol sulfate 90 mcg/actuation HFA aerosol inhaler 2 puff inhalation Q6H PRN (Reason: Shortness Of Breath Or Wheezing) Discharge Orders: Discharge Order (Routine); Ordered 11/13/23 Ordered By: Gio Jaimes Diet: Advance to usual diet Activity on Discharge: As tolerated Stand Alone Forms: Patient Portal Discharge page Care Plan Goals: recovery Health Concerns: copd, chf Plan of Treatment: starting lasix maintenacne, 5 more days prednisone and azithro Assessment: see above
--- NOTE | 2023-11-13 12:21 | MHC.CM.PN ---
Per MD, pt is medically cleared for D/C home with new HVNA and new home O2 through [employer]. Pts to transport her home.
== END 2023-11-13 13:53 | disposition home health service (06) | DRG 140 ==
LOC: HO.ED 11-09 07:24 → HO.EDOVER 11-09 12:36 → HO.ICU 11-09 12:45 → HO.IMC 11-10 17:29
PROVIDERS: Emergency Medicine; Emergency Medicine Emergency Medical Services; Admitting Provider Internal Medicine Pulmonary Disease; Emergency Provider Emergency Medicine; PCP Internal Medicine; Visit Provider Internal Medicine
DX: J44.1 Chronic obstructive pulmonary disease with (acute) exacerbation (principal); I50.33 Acute on chronic diastolic (congestive) heart failure; G93.41 Metabolic encephalopathy; J96.01 Acute respiratory failure with hypoxia; J96.02 Acute respiratory failure with hypercapnia; F17.210 Nicotine dependence, cigarettes, uncomplicated; J98.11 Atelectasis; E66.9 Obesity, unspecified; Z68.36 Body mass index [BMI] 36.0-36.9, adult; Z71.3 Dietary counseling and surveillance; Z71.6 Tobacco abuse counseling; F11.20 Opioid dependence, uncomplicated; Z20.822 Contact with and (suspected) exposure to COVID-19; Z79.899 Other long term (current) drug therapy
CPT/HCPCS: 0241U; 36415; 71045; 71275; 80048; 80076; 80307; 82040; 82803; 83605; 83735; 83880; 84100; 84484; 85025; 85027; 85610; 87040; 93005; 93306; 94640; 94660; 99285; C1758; J0456; J0696; J1120; J1644; J1650; J1940; J2060; J2270; J2930; J3475; Q9957; Q9967

== ENCOUNTER → 2023-11-08 20:03 | Outpatient (BNV) | payer OTHER, SELFPAY | PROVIDERS: Admitting Provider Internal Medicine Pulmonary Disease; Emergency Provider Emergency Medicine; Visit Provider Internal Medicine Cardiovascular Disease | DX: R94.31 Abnormal electrocardiogram [ECG] [EKG] (principal); R06.09 Other forms of dyspnea | CPT/HCPCS: 93010 ==

== ENCOUNTER 2023-11-09 11:27 | Outpatient (BNV) | payer OTHER, SELFPAY | END 2023-11-10 07:00 | PROVIDERS: Admitting Provider Internal Medicine Pulmonary Disease; Emergency Provider Emergency Medicine; Visit Provider Internal Medicine Cardiovascular Disease | DX: I50.9 Heart failure, unspecified (principal) | CPT/HCPCS: 93306 ==

== ENCOUNTER → 2023-11-09 11:27 | Outpatient (BNV) | payer OTHER, SELFPAY | PROVIDERS: Admitting Provider Internal Medicine Pulmonary Disease; Emergency Provider Emergency Medicine; Visit Provider Internal Medicine Pulmonary Disease | DX: J96.02 Acute respiratory failure with hypercapnia (principal); J96.01 Acute respiratory failure with hypoxia; I50.9 Heart failure, unspecified; J44.9 Chronic obstructive pulmonary disease, unspecified | CPT/HCPCS: 99291 ==

== ENCOUNTER → 2023-11-09 11:27 | Outpatient (BNV) | payer OTHER, SELFPAY | PROVIDERS: Admitting Provider Internal Medicine Pulmonary Disease; Emergency Provider Emergency Medicine; PCP Internal Medicine; Visit Provider Internal Medicine | DX: I50.33 Acute on chronic diastolic (congestive) heart failure (principal) | CPT/HCPCS: 99233; 99239; G0180 ==

== ENCOUNTER 2023-11-16 12:21 | Outpatient (AMB) | payer OTHER, SELFPAY ==
--- NOTE | 2023-11-16 12:57 | A.OFFPC_ITS ---
Vital Signs 11/16/23 13:13 Height 5 ft 3 in Weight 198 lb BMI 35.1 BP 124/78 Blood Pressure Location Lt brachial Position Sitting Pulse 91 Pulse Source Pulse Oximeter Pulse Oximetry (%) 95 Oxygen Delivery Method Nasal Cannula Intake Visit Reasons: Hospital follow up Intake Note: Pt is here today for Hospital follow up visit. Allergies No Known Allergies Allergy (Verified 11/16/23 13:24) Medication List - Last Reconciled 11/16/23 by Mame Zamora MD albuterol sulfate 90 mcg/actuation 2 puffs inhalation Q6H PRN azithromycin 500 mg PO DAILY buprenorphine-naloxone 12-3 mg 1 film sublingual DAILY duloxetine 60 mg PO DAILY fluconazole 150 mg PO Q3D 2 doses furosemide 40 mg See Protocol PO DAILY omeprazole 20 mg PO DAILY@0630 prednisone 40 mg (2 x 20 mg) PO DAILY zolpidem 5 mg PO BEDTIME PRN Tobacco use date assessed: 11/16/23 Dental Screening Dental Screen Date: 11/16/23 Did you have a dental visit in the last 12 months?: Yes Did you have a dental problem in the last 6 months where you did not have access to dental care?: No Was dental information given to patient?: Patient has dentist HPI Hospital follow up HPI Details Pt presents for f/u hospitalization for acute respiratory failure/hypoxia/COPD /ICU stay for Bipap. Pt is feeling better and has been using 2 LPM via nasal cannula O2 supplement and completed a course of azithromycin prednisone and furosemide. Patient has an appointment with [facility] next month. She has not been smoking since the discharge using the nicotine patch. Patient follows up with pain management and is planning to taper off Suboxone. [facility] Medical History (Updated 11/16/23 @ 16:31 by Mame Zamora MD) Mammogram normal Anxiety Nausea Annual physical exam Tobacco dependence COPD (chronic obstructive pulmonary disease) Ankle pain, left Obese GERD (gastroesophageal reflux disease) Fibromyalgia Hyperlipidemia Insomnia Depression Anxiety Derangement of right knee Surgical History H/O colonoscopy History of total left knee replacement (TKR) Hx of right knee surgery Hx of left knee surgery History of repair of right rotator cuff History of arthroscopy of shoulder History of tubal ligation History of section History of lumpectomy of left breast History of arthroscopy of shoulder Family History Father No problems noted. Mother Breast cancer Throat cancer Substance use disorder Maternal Grandmother Alcoholism Maternal Grandfather No problems noted. Paternal Grandmother No problems noted. Paternal Grandfather No problems noted. Son No problems noted. Daughter No problems noted. 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 Do you presently have visiting nurse or other home services: No Alcohol intake: never Patient Tobacco Use Status: Current everyday Tobacco user Tobacco use type: Cigarette Cigarettes Per Day: 1 Years Smoked: 45 e-Cigarette/Vaping Use: Former Use Substance Use Type: Marijuana service: No Current occupational status: employed Cognitive needs: No Hearing needs: No Vision needs: Yes Questionnaire Thrive Questionnaire Date Thrive assessed: 11/10/23 AUDIT C Alcohol Use Questionnaire (AUDIT-C) 1. How often do you have a drink containing alcohol?: Never 3. How often do you have six or more drinks on one occasion?: Never Total Score: 0 NATTY-7 AMB Questionnaire NATTY-7 Date NATTY - 7 assessed: 06/03/22 Source: Developed by Drs. Tawanda Gottlieb, Lsea Jeff, Peter Araujo and colleagues, with an educational sandi from [employer]. Review of Systems Const All systems reviewed & are unremarkable except as noted in HPI and below Reports no additional complaints Eyes Reports no additional complaints ENT Reports no additional complaints Card Reports no additional complaints Resp Reports no additional complaints GI Reports no additional complaints Reports no additional complaints Physical exam (Primary Care) Vital Signs: Last Vital Signs Pulse 91 11/16/23 13:13 BP 124/78 11/16/23 13:13 Pulse Ox 95 11/16/23 13:13 Oxygen Delivery Method Nasal Cannula 11/16/23 13:13 BMI result Body Mass Index 35.1 Tobacco/Smoking Status: Tobacco use Status Tobacco use date assessed 11/16/23 11/16/23 13:29 Patient Tobacco Use Status Current everyday Tobacco 11/16/23 13:29 Tobacco use type Cigarette 11/16/23 12:57 e-Cigarette/Vaping Use Former Use 11/16/23 12:57 Thrive Assessment: Date of Thrive Assessment Date Thrive assessed 11/10/23 11/16/23 12:57 Const General: no acute distress HENMT Head: Yes normal to inspection Resp Effort & Inspection: normal respiratory effort Auscultation: diminished lung sounds Cardio Rhythm: regular rhythm Heart sounds: S1 normal heart sound present and S2 normal heart sound present GI Inspection: Yes normal to inspection Palpation (GI): Soft to palpation Assessment and Plan Assessment & Plan (1) Congestive heart failure: Comment: Echo 12/01 nl EF, mild-mod pul HTN Code(s): I50.9 - Heart failure, unspecified Plan: Continue furosemide check basic metabolic panel and increase potassium intake discussed with the patient (2) COPD (chronic obstructive pulmonary disease): Comment: O2 dependent Code(s): J44.9 - Chronic obstructive pulmonary disease, unspecified Plan: Restart Trelegy and continue albuterol as needed (3) Acute respiratory failure with hypoxia and hypercapnia: Comment: admitted to [facility] [place] [place] 11/06- 11/13, ICU stay for Bipap, CT chest RML collapse, ? obstructive process not r/o Code(s): J96.01 - Acute respiratory failure with hypoxia; J96.02 - Acute respiratory failure with hypercapnia Plan: Continue prednisone taper and azithromycin. Continue supplemental O2. Patient desaturated to 86% after 2 minute walk on 1 Lpm nasal cannula, she was advised to use supplemental O2 and monitor O2 sat to keep between 90-92 %, follow-up with pulmonology, patient will follow-up in 1 month Orders: Orders Complete Blood Count Auto Diff Today I50.9 - Heart failure, unspecified, J44.9 - Chronic obstructive pulmonary disease, unspecified Basic Metabolic Panel Today I50.9 - Heart failure, unspecified, J44.9 - Chronic obstructive pulmonary disease, unspecified B Type Natriuretic Peptide Today I50.9 - Heart failure, unspecified, J44.9 - Chronic obstructive pulmonary disease, unspecified ABG Today J44.9 - Chronic obstructive pulmonary disease, unspecified Medications: New fluconazole 150 mg PO Q3D 2 tabs 0RF Trelegy Ellipta 200-62.5-25 mcg ([id number]) 1 inh inhalation DAILY 60 ea 2RF NS Coding Level of Care Code Est Pt Level 4 (34363) Diagnoses Congestive heart failure I50.9 COPD (chronic obstructive pulmonary disease) J44.9 Acute respiratory failure with hypoxia and hypercapnia J96.01; J96.02
[2023-11-16 13:13] VITALS: BP 124/78; PULSE 91; O2SAT 95; BMI 35.1
== END 2023-11-16 14:08 | disposition home or self-care (01) ==
PROVIDERS: PCP Internal Medicine; Visit Provider Internal Medicine
DX: I50.9 Heart failure, unspecified (principal); J44.9 Chronic obstructive pulmonary disease, unspecified; J96.01 Acute respiratory failure with hypoxia; J96.02 Acute respiratory failure with hypercapnia
CPT/HCPCS: 99214

== ENCOUNTER 2023-11-16 14:06 | Outpatient (REF) | payer OTHER, SELFPAY ==
[2023-11-16 16:44] LABS: MANUAL DIFF FLAG NO
[2023-11-16 17:32] LABS: Basophils Percent Auto 0.5 % (0-2); Eosinophils Percent Auto 0.3 % (0-4); Hematocrit 48.3 % (37.0-47.0); Imm Gran Abs Auto 0.05 X10*3/uL (0.00-0.03); Imm Gran Pct Auto 0.8 % (0.0-0.4); Lymphocytes Absolute Auto 0.4 X10*3/uL (1.2-4.9); Lymphocytes Percent Auto 6.6 % (20-40); Mean Corpuscular HGB Conc 31.1 g/dl (31.0-35.0); Mean Corpuscular Hemoglobin 27.1 pg (27.0-33.0); Mean Corpuscular Volume 87.3 fL (80.0-98.0); Mean Platelet Volume 10.7 fL (9.4-12.3); Monocytes Absolute Auto 0.1 X10*3/uL (0.1-1.2); Monocytes Percent Auto 2.4 % (2-11); Neutrophils Absolute Auto 5.3 x10*3/uL (2.0-8.3); Neutrophils Percent Auto 89.4 % (45-73); Platelet Count 357 X10*3/uL (160-400); Red Blood Count 5.53 X10*6/uL (4.20-5.50); Red Cell Distribution Width 13.7 % (11.0-16.0); White Blood Count 5.9 X10*3/uL (4.8-10.8)
[2023-11-16 17:41] LABS: B Type Natriuretic Peptide 25 pg/mL (<100)
[2023-11-16 17:46] LABS: Alanine Aminotransferase 16 U/L (0-31); Albumin Level 3.6 g/dL (3.5-5.0); Alkaline Phosphatase 80 U/L (39-117); Anion Gap 16 (12-20); Aspartate Amino Transferase 23 U/L (5-31); Bilirubin Total 0.6 mg/dL (0.0-1.0); Blood Urea Nitrogen 16 mg/dL (9-16); Carbon Dioxide 33 mmol/L (22-29); Chloride 94 mmol/L (96-108); Cholesterol 188 mg/dL (<200); Estimated Glomerular Filt Rate > 60; Glucose Fasting 154 mg/dL (60-99); Glucose Random 153 mg/dL (60-115); HDL Cholesterol 54 mg/dL (>40); LDL Cholesterol Calculated 115 mg/dL (<100); Potassium 3.6 mmol/L (3.3-5.1); Sodium 139 mmol/L (135-145); Total Protein 7.6 g/dL (6.5-8.0); Triglycerides 95 mg/dL (<150)
[2023-11-16 17:53] LABS: TSH reflex Free T4 1.64 uIU/mL (0.32-4.0)
== END 2023-11-16 14:07 | disposition home or self-care (01) ==
LOC: HO.HMGCLDS 14:06
PROVIDERS: PCP Internal Medicine; Visit Provider Internal Medicine
DX: I50.9 Heart failure, unspecified (principal); E78.5 Hyperlipidemia, unspecified; J44.9 Chronic obstructive pulmonary disease, unspecified
CPT/HCPCS: 36415; 80048; 80053; 80061; 83880; 84443; 85025

== ENCOUNTER 2023-12-10 14:24 | Outpatient (AMB) | payer OTHER, SELFPAY ==
--- NOTE | 2023-12-10 14:28 | MHC.OFFVIS ---
Intake Vital Signs 12/10/23 14:29 Height 5 ft 3 in Weight 194 lb BMI 34.4 BP 102/62 Blood Pressure Location Rt brachial Position Sitting Pulse 94 Pulse Source Doppler Pulse Oximetry (%) 92 Intake Visit Reasons: Hospital Follow Up - Per Dr. Short Allergies No Known Allergies Allergy (Verified 12/10/23 14:30) HPI Hospital Follow Up - Per Dr. Short HPI Details 63-year-old lady, active 40+ pack-year smoker with recent hospitalization for diastolic congestive heart failure. Patient states that she was not able to afford trilogy and she has been relying heavily on albuterol MDI. She continues on Lasix 40 mg daily with stable weight. She denies recent exacerbations. [facility] Medical History Mammogram normal Anxiety Nausea Annual physical exam Tobacco dependence COPD (chronic obstructive pulmonary disease) Ankle pain, left Obese GERD (gastroesophageal reflux disease) Fibromyalgia Hyperlipidemia Insomnia Depression Anxiety Derangement of right knee Surgical History H/O colonoscopy History of total left knee replacement (TKR) Hx of right knee surgery Hx of left knee surgery History of repair of right rotator cuff History of arthroscopy of shoulder History of tubal ligation History of section History of lumpectomy of left breast History of arthroscopy of shoulder Family History Father No problems noted. Mother Breast cancer Throat cancer Substance use disorder Maternal Grandmother Alcoholism Maternal Grandfather No problems noted. Paternal Grandmother No problems noted. Paternal Grandfather No problems noted. Son No problems noted. Daughter No problems noted. 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: House Do you presently have visiting nurse or other home services: No Alcohol intake: never Patient Tobacco Use Status: Current everyday Tobacco user Tobacco use type: Cigarette Cigarettes Per Day: 10 Years Smoked: 45 e-Cigarette/Vaping Use: Former Use Substance Use Type: Marijuana service: No Current occupational status: employed Cognitive needs: No Hearing needs: No Vision needs: Yes Review of Systems Const Reports daytime sleepiness, Denies excessive sweating, Reports fatigue, Denies fever(s), Denies lethargy, Denies malaise, Denies night sweats, Denies snoring and Denies weight loss Eyes Denies blurry vision and Denies itchy eyes ENT Denies nasal congestion, Denies post nasal drip, Denies sinus pain, Denies sinus pressure and Denies other ( Thrush) Card Denies chest pain, Reports pedal edema, Denies dyspnea, Denies orthopnea and Denies paroxysmal nocturnal dyspnea Resp Denies cough, Denies hemoptysis, Denies excessive phlegm production, Denies dyspnea, Denies snoring and Denies wheezing GI Denies abdominal pain and Denies heartburn Musc Denies myalgias, Denies arthralgias and Denies joint swelling Skin/Breast Denies rash Neuro Denies memory loss and Denies seizure-like activity Psych Denies abnormal sleep pattern, Denies anxiety and Denies memory loss Endo Denies excessive sweating, Reports fatigue and Denies heat intolerance William/Lymph Denies easy bruising Aller/Immun Denies itchy eyes, Denies seasonal rhinorrhea and Denies wheezing Physical Exam Vital Signs: Last Vital Signs Pulse 94 12/10/23 14:29 BP 102/62 12/10/23 14:29 Pulse Ox 92 12/10/23 14:29 BMI result Body Mass Index 34.4 Const General: no acute distress and alert Nutritional Appearance: obese Orientation/consciousness: Other orientation findings ( oriented) HEENT Head: Yes atraumatic Eyes General: appearance normal, both eyes and all related structures Sclerae: sclerae normal EOM: EOMs intact bilaterally Neck Neck: Yes supple Lymphatic: no lymphadenopathy noted Resp Effort & Inspection: normal respiratory effort and no use of accessory muscles Auscultation: clear to auscultation bilaterally Cardio Rate: regular rate Rhythm: regular rhythm Heart sounds: no gallops, no murmurs and no rubs Skin General skin exam: other ( warm) Extrem General: No clubbing, No cyanosis and Yes edema (2+ bilateral) Assessment & Plan Assessment & Plan (1) COPD (chronic obstructive pulmonary disease): Code(s): J44.9 - Chronic obstructive pulmonary disease, unspecified Plan: Suboptimally controlled as patient was not able to afford trilogy, will switch to Anoro. Continue albuterol MDI. Will obtain full PFT. (2) DEIDRA (obstructive sleep apnea): Code(s): G47.33 - Obstructive sleep apnea (adult) (pediatric) Plan: [place] Sleepiness Scale score of 15. Will obtain home sleep study. Orders: Orders RT home sleep study Today G47.33 - Obstructive sleep apnea (adult) (pediatric) PFT pulmonary function test Today J44.9 - Chronic obstructive pulmonary disease, unspecified Medications: New Anoro Ellipta 62.5-25 mcg/actuation (umeclidinium-vilanterol) 1 inh inhalation DAILY 30 days 1 ea 6RF NS J44.9 - Chronic obstructive pulmonary disease, unspecified Discontinued Trelegy Ellipta 200-62.5-25 mcg ([id number]) Discontinued Reason: Doctor's Order 1 inh inhalation DAILY 60 ea 2RF NS Coding Level of Care Code Est Pt Level 4 (54967) Diagnoses COPD (chronic obstructive pulmonary disease) J44.9 DIEDRA (obstructive sleep apnea) G47.33
[2023-12-10 14:29] VITALS: BP 102/62; PULSE 94; O2SAT 92; BMI 34.4
== END 2023-12-10 14:58 | disposition home or self-care (01) ==
PROVIDERS: PCP Internal Medicine; Visit Provider Internal Medicine Pulmonary Disease
DX: J44.9 Chronic obstructive pulmonary disease, unspecified (principal); G47.33 Obstructive sleep apnea (adult) (pediatric)
CPT/HCPCS: 99214

== ENCOUNTER → 2023-12-10 14:24 | Outpatient (BNVA) | payer OTHER, SELFPAY | PROVIDERS: PCP Internal Medicine; Visit Provider Internal Medicine Pulmonary Disease | DX: J44.9 Chronic obstructive pulmonary disease, unspecified (principal); G47.33 Obstructive sleep apnea (adult) (pediatric) | CPT/HCPCS: 99212 ==

== ENCOUNTER 2023-12-22 10:55 | Outpatient (AMB) | payer OTHER, SELFPAY ==
[2023-12-22 11:03] VITALS: BP 114/64; PULSE 53; O2SAT 95; BMI 34.4
--- NOTE | 2023-12-22 11:03 | MHC.PC.OV ---
Vital Signs 12/22/23 11:03 Height 5 ft 3 in Weight 194 lb BMI 34.4 BP 114/64 Blood Pressure Location Lt brachial Position Sitting Pulse 53 Pulse Source Pulse Oximeter Pulse Oximetry (%) 95 Oxygen Delivery Method Room Air Intake Visit Reasons: 1 Month follow up Intake Note: Pt is here today for 1 month follow up visit. Allergies No Known Allergies Allergy (Verified 12/22/23 11:06) Medication List - Last Reconciled 12/22/23 by Mame Zamora MD albuterol sulfate 90 mcg/actuation 2 puffs inhalation Q6H PRN buprenorphine-naloxone 12-3 mg 1 film sublingual DAILY duloxetine 60 mg PO DAILY fluconazole 150 mg PO Q3D 2 doses furosemide 40 mg See Protocol PO DAILY 30 days omeprazole 20 mg PO DAILY@0630 Stiolto Respimat 2.5-2.5 mcg/actuation (tiotropium-olodaterol) 2 puffs inhalation DAILY 30 days NS zolpidem 5 mg PO BEDTIME PRN Tobacco use date assessed: 11/16/23 HPI 1 Month follow up HPI Details Pt presents for f/u for COPD, right-sided heart failure due to pulmonary hypertension, respiratory failure and hypoxemia. Patient can not afford any maintenance inhalers due to high deductible. She will try get a prescription through [facility] pharmacy. She cut down on smoking to half a pack a day and denies cough or sputum production. She has been using supplemental O2 usually in the evenings when the O2 sat drops below 88 which has not been regularly. Patient follows up with drill sergeant has PFTs and home sleep study to be scheduled. Patient has been taking furosemide but complains of increased urination. She denies dyspnea on exertion palpitations or chest pain. Chronic anxiety depression stable on duloxetine. [facility] Medical History (Updated 12/22/23 @ 11:53 by Mame Zamora MD) Mammogram normal Anxiety Nausea Annual physical exam Tobacco dependence COPD (chronic obstructive pulmonary disease) Ankle pain, left Obese GERD (gastroesophageal reflux disease) Fibromyalgia Hyperlipidemia Insomnia Depression Anxiety Derangement of right knee Surgical History H/O colonoscopy History of total left knee replacement (TKR) Hx of right knee surgery Hx of left knee surgery History of repair of right rotator cuff History of arthroscopy of shoulder History of tubal ligation History of section History of lumpectomy of left breast History of arthroscopy of shoulder Family History Father No problems noted. Mother Breast cancer Throat cancer Substance use disorder Maternal Grandmother Alcoholism Maternal Grandfather No problems noted. Paternal Grandmother No problems noted. Paternal Grandfather No problems noted. Son No problems noted. Daughter No problems noted. 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 Do you presently have visiting nurse or other home services: No Alcohol intake: never Patient Tobacco Use Status: Current everyday Tobacco user Tobacco use type: Cigarette Cigarettes Per Day: 10 Years Smoked: 45 e-Cigarette/Vaping Use: Former Use Substance Use Type: Marijuana service: No Current occupational status: employed Cognitive needs: No Hearing needs: No Vision needs: Yes Questionnaire Thrive Questionnaire Date Thrive assessed: 11/10/23 NATTY-7 AMB Questionnaire NATTY-7 Date NATTY - 7 assessed: 06/03/22 Source: Developed by Drs. Tawanda Gottlieb, Lesa Jeff, Peter Araujo and colleagues, with an educational sandi from [employer]. Review of Systems Const All systems reviewed & are unremarkable except as noted in HPI and below Reports no additional complaints Eyes Reports no additional complaints ENT Reports no additional complaints Card Reports no additional complaints Resp Reports no additional complaints GI Reports no additional complaints Reports no additional complaints Physical exam (Primary Care) Vital Signs: Last Vital Signs Pulse 53 12/22/23 11:03 BP 114/64 12/22/23 11:03 Pulse Ox 95 12/22/23 11:03 Oxygen Delivery Method Room Air 12/22/23 11:03 BMI result Body Mass Index 34.4 Tobacco/Smoking Status: Tobacco use Status Tobacco use date assessed 11/16/23 12/22/23 11:04 Patient Tobacco Use Status Current everyday Tobacco 12/22/23 11:04 Tobacco use type Cigarette 12/22/23 11:04 e-Cigarette/Vaping Use Former Use 12/22/23 11:04 Thrive Assessment: Date of Thrive Assessment Date Thrive assessed 11/10/23 12/22/23 11:04 Const General: no acute distress HENMT Head: Yes normal to inspection General nose exam: Normal external nose present Neck Neck: Yes supple Resp Effort & Inspection: normal respiratory effort Auscultation: diminished lung sounds Cardio Rhythm: regular rhythm Heart sounds: S1 normal heart sound present and S2 normal heart sound present GI Inspection: Yes normal to inspection Palpation (GI): Soft to palpation Extrem General: Yes no clubbing, cyanosis or edema Assessment and Plan Assessment & Plan (1) Hyperglycemia: Code(s): R73.9 - Hyperglycemia, unspecified Plan: Patient will return for fasting labs including A1c, ADA diet increase exercise weight loss discussed with the patient. (2) Congestive heart failure: Comment: Echo 12/01 nl EF, mild-mod pul HTN Code(s): I50.9 - Heart failure, unspecified Plan: Continue furosemide (3) COPD (chronic obstructive pulmonary disease): Code(s): J44.9 - Chronic obstructive pulmonary disease, unspecified Plan: Patient will try to get maintenance inhalers for [facility] pharmacy, she will have a PFTs sleep studies with overnight oximetry. Continue cutting down on smoking. Patient will follow-up with drill sergeant. (4) Opiate addiction: Comment: on Suboxone Code(s): F11.20 - Opioid dependence, uncomplicated Orders: Orders Comprehensive [place]. Panel Fast Today I50.9 - Heart failure, unspecified, J44.9 - Chronic obstructive pulmonary disease, unspecified, R73.9 - Hyperglycemia, unspecified Complete Blood Count Auto Diff Today I50.9 - Heart failure, unspecified, J44.9 - Chronic obstructive pulmonary disease, unspecified, R73.9 - Hyperglycemia, unspecified Comprehensive [place]. Panel Fast 6 Months F11.20 - Opioid dependence, uncomplicated, I50.9 - Heart failure, unspecified, J44.9 - Chronic obstructive pulmonary disease, unspecified, R73.9 - Hyperglycemia, unspecified Hemoglobin A1c Today I50.9 - Heart failure, unspecified, J44.9 - Chronic obstructive pulmonary disease, unspecified, R73.9 - Hyperglycemia, unspecified Hemoglobin A1c 6 Months F11.20 - Opioid dependence, uncomplicated, I50.9 - Heart failure, unspecified, J44.9 - Chronic obstructive pulmonary disease, unspecified, R73.9 - Hyperglycemia, unspecified Lipid Panel 6 Months F11.20 - Opioid dependence, uncomplicated, I50.9 - Heart failure, unspecified, J44.9 - Chronic obstructive pulmonary disease, unspecified, R73.9 - Hyperglycemia, unspecified TSH reflex Free T4 6 Months F1.20 - Opioid dependence, uncomplicated, I50.9 - Heart failure, unspecified, J44.9 - Chronic obstructive pulmonary disease, unspecified, R73.9 - Hyperglycemia, unspecified Microalbumin, Random (w Creat) 6 Months F1.20 - Opioid dependence, uncomplicated, I50.9 - Heart failure, unspecified, J44.9 - Chronic obstructive pulmonary disease, unspecified, R73.9 - Hyperglycemia, unspecified IRON PROFILE 6 Months F1.20 - Opioid dependence, uncomplicated, I50.9 - Heart failure, unspecified, J44.9 - Chronic obstructive pulmonary disease, unspecified, R73.9 - Hyperglycemia, unspecified Coding Level of Care Code Est Pt Level 4 (55738) Diagnoses Hyperglycemia R73.9 Congestive heart failure I50.9 COPD (chronic obstructive pulmonary disease) J44.9 Opiate addiction
== END 2023-12-22 12:06 | disposition home or self-care (01) ==
PROVIDERS: PCP Internal Medicine; Visit Provider Internal Medicine
DX: R73.9 Hyperglycemia, unspecified (principal); I50.9 Heart failure, unspecified; J44.9 Chronic obstructive pulmonary disease, unspecified; F11.20 Opioid dependence, uncomplicated
CPT/HCPCS: 99214

== ENCOUNTER 2024-01-08 | Outpatient (REF) | payer OTHER, SELFPAY ==
[2024-01-08 11:33] VITALS: PULSE 82; RESP 16; O2SAT 96
--- NOTE | 2024-01-08 11:37 | PFT_ITS ---
Flows: FEV1: 46 % of predicted at 1.09 L FVC: 61 % of predicted at 1.84 L FEV1/FVC: 59 % Bronchodilator response: Absent Volumes: No lung volume measurements available secondary to a technical issue. Diffusion capacity: Mildly decreased, corrects to normal after adjustment for alveolar ventilation. Impression: Severe obstructive ventilatory defect with no bronchodilator response. No lung volume measurements available secondary to a technical issue. Decreased diffusion capacity suggests emphysema. MTDD
== END 2024-01-08 00:01 | disposition home or self-care (01) ==
LOC: HO.RESP
PROVIDERS: PCP Internal Medicine; Visit Provider Internal Medicine Pulmonary Disease
DX: J44.9 Chronic obstructive pulmonary disease, unspecified (principal)
CPT/HCPCS: 94010; 94640; 94727; 94729

== ENCOUNTER → 2024-01-08 11:37 | Outpatient (BNV) | payer OTHER, SELFPAY | PROVIDERS: PCP Internal Medicine; Visit Provider Internal Medicine Pulmonary Disease | DX: J44.9 Chronic obstructive pulmonary disease, unspecified (principal) | CPT/HCPCS: 94060; 94729 ==

== ENCOUNTER → 2024-01-31 09:55 | Outpatient (REF) | payer OTHER, SELFPAY | LOC: HO.SL 09:55 | PROVIDERS: PCP Internal Medicine; Visit Provider Internal Medicine Pulmonary Disease | DX: G47.33 Obstructive sleep apnea (adult) (pediatric) (principal) | CPT/HCPCS: 95806 ==

== ENCOUNTER → 2024-01-31 10:08 | Outpatient (BNV) | payer OTHER, SELFPAY | PROVIDERS: PCP Internal Medicine; Visit Provider Internal Medicine | DX: G47.33 Obstructive sleep apnea (adult) (pediatric) (principal) | CPT/HCPCS: 95806 ==

== ENCOUNTER 2024-02-09 13:37 | Outpatient (AMB) | payer OTHER, SELFPAY ==
[2024-02-09 13:46] VITALS: BP 109/62; PULSE 82; O2SAT 93; BMI 35.4
--- NOTE | 2024-02-09 13:46 | A.OFFVIS_ITS ---
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 Patient states that she was not able to afford Trelegy, Anoro or Stiolto and she has been relying heavily on albuterol MDI and Symbicort. She has decreased her Lasix to 20 mg daily and she has no lower extremity edema at this time. [facility] Medical History (Updated 02/03/24 @ 13:41 by THELMA Cordero) Mammogram normal Anxiety Nausea Annual physical exam Tobacco dependence COPD (chronic obstructive pulmonary disease) Ankle pain, left Obese GERD (gastroesophageal reflux disease) Fibromyalgia Hyperlipidemia Insomnia Depression Anxiety Derangement of right knee Surgical History H/O colonoscopy History of total left knee replacement (TKR) Hx of right knee surgery Hx of left knee surgery History of repair of right rotator cuff History of arthroscopy of shoulder History of tubal ligation History of section History of lumpectomy of left breast History of arthroscopy of shoulder Family History Father No problems noted. Mother Breast cancer Throat cancer Substance use disorder Maternal Grandmother Alcoholism Maternal Grandfather No problems noted. Paternal Grandmother No problems noted. Paternal Grandfather No problems noted. Son No problems noted. Daughter No problems noted. 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 Do you presently have visiting nurse or other home services: No Alcohol intake: never Patient Tobacco Use Status: Current everyday Tobacco user Tobacco use type: Cigarette Cigarettes Per Day: 10 Years Smoked: 45 e-Cigarette/Vaping Use: Former Use Substance Use Type: Marijuana service: No Current occupational status: employed Cognitive needs: No Hearing needs: No Vision needs: Yes Review of Systems Const Denies daytime sleepiness, Denies excessive sweating, Denies fatigue, Denies fever(s), Denies lethargy, Denies malaise, Denies night sweats, Denies snoring and Denies weight loss Eyes Denies blurry vision and Denies itchy eyes ENT Denies nasal congestion, Denies post nasal drip, Denies sinus pain, Denies sinus pressure and Denies other ( Thrush) Card Denies chest pain, Denies pedal edema, Denies dyspnea, Denies orthopnea and Denies paroxysmal nocturnal dyspnea Resp Denies cough, Denies hemoptysis, Denies excessive phlegm production, Denies dyspnea, Denies snoring and Denies wheezing GI Denies abdominal pain and Denies heartburn Musc Denies myalgias, Denies arthralgias and Denies joint swelling Skin/Breast Denies rash Neuro Denies memory loss and Denies seizure-like activity Psych Denies abnormal sleep pattern, Denies anxiety and Denies memory loss Endo Denies excessive sweating, Denies fatigue and Denies heat intolerance William/Lymph Denies easy bruising Aller/Immun Denies itchy eyes, Denies seasonal rhinorrhea and Denies wheezing Physical Exam Vital Signs: Last Vital Signs Pulse 82 02/09/24 13:46 BP 109/62 02/09/24 13:46 Pulse Ox 93 02/09/24 13:46 Oxygen Delivery Method Room Air 02/09/24 13:46 BMI result Body Mass Index 35.4 Const General: no acute distress and alert Nutritional Appearance: obese Orientation/consciousness: Other orientation findings ( oriented) HEENT Head: Yes atraumatic Eyes General: appearance normal, both eyes and all related structures Sclerae: sclerae normal EOM: EOMs intact bilaterally Neck Neck: Yes supple Lymphatic: no lymphadenopathy noted Resp Effort & Inspection: normal respiratory effort and no use of accessory muscles Auscultation: clear to auscultation bilaterally Cardio Rate: regular rate Rhythm: regular rhythm Heart sounds: no gallops, no murmurs and no rubs Skin General skin exam: other ( warm) Extrem General: No clubbing, No cyanosis and No edema Assessment & Plan Assessment & Plan (1) COPD (chronic obstructive pulmonary disease): Code(s): J44.9 - Chronic obstructive pulmonary disease, unspecified Plan: Suboptimally controlled on Symbicort and albuterol MDI. Will add Spiriva and duo nebs. (2) DEIDRA (obstructive sleep apnea): Code(s): G47.33 - Obstructive sleep apnea (adult) (pediatric) Plan: Sleep study is pending. Medications: New tiotropium bromide (Spiriva with [employer]iHaler) puncture 1 cap using device; one dose = 2 inhalations 1 cap inhalation DAILY 30 inhalations 6RF 30 days ipratropium-albuterol 0.5 mg-3 mg(2.5 mg base)/3 mL 3 mL inhalation Q4-6H PRN 270 mL 6RF wheezing 30 days Discontinued furosemide Discontinued Reason: Doctor's Order 40 mg See Protocol PO DAILY 30 tabs 6RF 30 days Stiolto Respimat 2.5-2.5 mcg/actuation (tiotropium-olodaterol) Discontinued Reason: Doctor's Order 2 puffs inhalation DAILY 4 grams 6RF 30 days NS Coding Level of Care Code Est Pt Level 4 (27695) Diagnoses COPD (chronic obstructive pulmonary disease) J44.9 DEIDRA (obstructive sleep apnea) G47.33
== END 2024-02-09 14:03 | disposition home or self-care (01) ==
PROVIDERS: PCP Internal Medicine; Visit Provider Internal Medicine Pulmonary Disease
DX: J44.9 Chronic obstructive pulmonary disease, unspecified (principal); G47.33 Obstructive sleep apnea (adult) (pediatric)
CPT/HCPCS: 99214

== ENCOUNTER → 2024-02-09 13:37 | Outpatient (BNVA) | payer OTHER, SELFPAY | PROVIDERS: PCP Internal Medicine; Visit Provider Internal Medicine Pulmonary Disease | DX: R06.00 Dyspnea, unspecified (principal); F17.210 Nicotine dependence, cigarettes, uncomplicated; J44.9 Chronic obstructive pulmonary disease, unspecified; G47.33 Obstructive sleep apnea (adult) (pediatric) | CPT/HCPCS: 99212 ==

== ENCOUNTER 2024-06-12 06:38 | Outpatient (REF) | payer OTHER, SELFPAY ==
[2024-06-12 10:09] LABS: MANUAL DIFF FLAG NO
[2024-06-12 10:13] LABS: Basophils Percent Auto 0.6 % (0-2); Eosinophils Absolute Auto 0.1 X10*3/uL (0.0-0.4); Eosinophils Percent Auto 2.6 % (0-4); Hematocrit 43.1 % (37.0-47.0); Hemoglobin 13.5 g/dl (12.0-16.0); Imm Gran Abs Auto 0.03 X10*3/uL (0.00-0.03); Imm Gran Pct Auto 0.6 % (0.0-0.4); Lymphocytes Absolute Auto 0.9 X10*3/uL (1.2-4.9); Mean Corpuscular HGB Conc 31.3 g/dl (31.0-35.0); Mean Corpuscular Hemoglobin 28.8 pg (27.0-33.0); Mean Corpuscular Volume 91.9 fL (80.0-98.0); Mean Platelet Volume 9.9 fL (9.4-12.3); Monocytes Absolute Auto 0.5 X10*3/uL (0.1-1.2); Monocytes Percent Auto 10.3 % (2-11); Neutrophils Absolute Auto 3.1 x10*3/uL (2.0-8.3); Neutrophils Percent Auto 65.9 % (45-73); Platelet Count 282 X10*3/uL (160-400); Red Blood Count 4.69 X10*6/uL (4.20-5.50); Red Cell Distribution Width 13.2 % (11.0-16.0); White Blood Count 4.6 X10*3/uL (4.8-10.8)
[2024-06-12 10:39] LABS: Alanine Aminotransferase 11 U/L (0-31); Albumin Level 3.7 g/dL (3.5-5.0); Alkaline Phosphatase 77 U/L (39-117); Anion Gap 9 (12-20); Aspartate Amino Transferase 17 U/L (5-31); Bilirubin Total 0.3 mg/dL (0.0-1.0); Blood Urea Nitrogen 20 mg/dL (9-16); Calcium 8.9 mg/dL (8.4-10.2); Carbon Dioxide 33 mmol/L (22-29); Chloride 99 mmol/L (96-108); Cholesterol 210 mg/dL (<200); Estimated Glomerular Filt Rate > 60; Glucose Fasting 97 mg/dL (60-99); HDL Cholesterol 61 mg/dL (>40); Iron 53 mcg/dL (30-160); LDL Cholesterol Calculated 133 mg/dL (<100); Percent Iron Saturation 19 % (15-50); Potassium 4.3 mmol/L (3.3-5.1); Sodium 137 mmol/L (135-145); Total Iron Binding Capacity 279 mcg/dL (228-428); Total Protein 7.2 g/dL (6.5-8.0); Triglycerides 83 mg/dL (<150); Unsaturated Iron Binding 226 ug/dL
[2024-06-12 10:49] LABS: Estimated Average Glucose 105 mg/dL; Hemoglobin A1c % 5.3 % (<6.0)
[2024-06-12 11:06] LABS: Creatinine Urine 93.93 mg/dL; Microalbum/Creatinine Ratio Ur 12.7 ug/mg cr (<30)
== END 2024-06-12 06:39 | disposition home or self-care (01) ==
LOC: HO.HMGCLDS 06:38
PROVIDERS: PCP Internal Medicine; Visit Provider Internal Medicine
DX: R73.9 Hyperglycemia, unspecified (principal); I50.9 Heart failure, unspecified; J44.9 Chronic obstructive pulmonary disease, unspecified; F11.20 Opioid dependence, uncomplicated
CPT/HCPCS: 36415; 80053; 80061; 82043; 82570; 83036; 83540; 84443; 85025

== ENCOUNTER 2024-06-13 11:26 | Outpatient (AMB) | payer OTHER, SELFPAY ==
[2024-06-13 11:31] VITALS: BP 122/66; PULSE 67; O2SAT 99; BMI 36.3
--- NOTE | 2024-06-13 11:31 | MHC.PC.OV ---
Vital Signs 06/13/24 11:31 Height 5 ft 3 in Weight 205 lb BMI 36.3 BP 122/66 Blood Pressure Location Lt brachial Position Sitting Pulse 67 Pulse Source Pulse Oximeter Pulse Oximetry (%) 99 Oxygen Delivery Method Room Air Intake Visit Reasons: Annual PE Intake Note: Pt is here today for PE. Allergies No Known Allergies Allergy (Verified 06/13/24 11:31) Medication List - Last Reconciled 06/13/24 by Mame Zamora MD albuterol sulfate 90 mcg/actuation 2 puffs inhalation Q6H PRN buprenorphine-naloxone 12-3 mg 1 film sublingual DAILY duloxetine 60 mg PO DAILY ipratropium-albuterol 0.5 mg-3 mg(2.5 mg base)/3 mL 3 mL inhalation Q4-6H PRN 30 days omeprazole 20 mg PO DAILY@629 tiotropium bromide (Spiriva with HandiHaler) 1 cap inhalation DAILY 30 days zolpidem 5 mg PO BEDTIME PRN Tobacco use date assessed: 06/13/24 Dental Screening Dental Screen Date: 06/13/24 Did you have a dental visit in the last 12 months?: Yes Did you have a dental problem in the last 6 months where you did not have access to dental care?: No Was dental information given to patient?: Patient has dentist [facility] Medical History COPD (chronic obstructive pulmonary disease) Anxiety Nausea Annual physical exam Tobacco dependence Ankle pain, left Obese GERD (gastroesophageal reflux disease) Fibromyalgia Hyperlipidemia Insomnia Depression Anxiety Derangement of right knee Surgical History H/O colonoscopy History of total left knee replacement (TKR) Hx of right knee surgery Hx of left knee surgery History of repair of right rotator cuff History of arthroscopy of shoulder History of tubal ligation History of section History of lumpectomy of left breast History of arthroscopy of shoulder Family History Father No problems noted. Mother Breast cancer Throat cancer Substance use disorder Maternal Grandmother Alcoholism Maternal Grandfather No problems noted. Paternal Grandmother No problems noted. Paternal Grandfather No problems noted. Son No problems noted. Daughter No problems noted. 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 1. Little interest or pleasure in doing things: several days 2. Feeling down, depressed, or hopeless: several days 3. Trouble falling or staying asleep, or sleeping too much: several days 4. Feeling tired or having little energy: several days 5. Poor appetite or overeating: not at all 6. Feeling bad about yourself - or that you are a failure or have let yourself or your family down: not at all 7. Trouble concentrating on things, such as reading the newspaper or watching television: not at all 8. Moving or speaking so slowly that other people could have noticed. Or the opposite - being so fidgety or restless that you have been moving around a lot more than usual: not at all 9. Thoughts that you would be better off or of hurting yourself in some way: not at all Total score: 4 Depression Screening Interpretation: Negative Depression Screening Done: Yes Source: Developed by Drs. Tawanda Gottlieb, Lesa Jeff, Peter Araujo and colleagues, with an educational sandi from [employer]. Thrive Questionnaire Date Thrive assessed: 06/13/24 I am a: Patient What is your living situation today?: I have a steady place to live Within the past 12 months, did the food you bought not last and you didn't have the money to get more?: Sometimes True Within the past 12 months, did you worry whether your food would run out before you got money to buy more?: Sometimes True Do you have trouble paying for medicines?: Yes Do you have trouble getting transportation to medical appointments?: No Do you have trouble paying your heating and electricity bill?: No Do you have trouble taking care of your child, family member or friend?: No Do you have trouble with day-to-day activities such as bathing, preparing meals, shopping, managing finances, etc.?: No Are you currently unemployed and looking for a job?: No Are you interested in more education?: No Please select the resources that you would like help with: Paying for medicine Currently or been in a relationship where the following occur: No concerns reported THRIVE Score: 2 AUDIT C Alcohol Use Questionnaire (AUDIT-C) 1. How often do you have a drink containing alcohol?: Monthly or less 2. How many drinks containing alcohol do you have on a typical day when you are drinking?: 1 or 2 3. How often do you have six or more drinks on one occasion?: Less than monthly Total Score: 2 NATTY-7 AMB Questionnaire NATTY-7 Date NATTY - 7 assessed: 06/13/24 Feeling nervous, anxious, or on edge: 1 = Several days Not being able to stop or control worryin = Several days Worrying too much about different things: 1 = Several days Trouble relaxin = Several days Being so restless that it is hard to sit still: 1 = Several days Becoming easily annoyed or irritable: 1 = Several days Feeling afraid as if something awful might happen: 0 = Not at all Total NATTY-7 score (0-4 normal; 5-9 mild; 10-14 moderate; 15-21 severe): 6 Source: Developed by Drs. Tawanda Gottlieb, Lesa Jeff, Peter Araujo and colleagues, with an educational sandi from [employer]. Review of Systems Const All systems reviewed & are unremarkable except as noted in HPI and below Reports no additional complaints Eyes Reports no additional complaints ENT Reports no additional complaints Card Reports no additional complaints Resp Reports no additional complaints GI Reports no additional complaints Reports no additional complaints Physical exam (Primary Care) Vital Signs: Last Vital Signs Pulse 67 06/13/24 11:31 BP 122/66 06/13/24 11:31 Pulse Ox 99 06/13/24 11:31 Oxygen Delivery Method Room Air 06/13/24 11:31 BMI result Body Mass Index 36.3 Tobacco/Smoking Status: Tobacco use Status Tobacco use date assessed 06/13/24 06/13/24 11:39 Patient Tobacco Use Status Current everyday Tobacco 06/13/24 11:39 Tobacco use type Cigarette 06/13/24 11:39 e-Cigarette/Vaping Use Former Use 06/13/24 11:39 PHQ-9: PHQ-9 Score PHQ-9: Total score 4 06/13/24 11:39 Depression Screening Interpretation: Negative Thrive Assessment: Date of Thrive Assessment Date Thrive assessed 06/13/24 06/13/24 11:39 Currently or been in a relationship where the following occur: No concerns reported Const General: no acute distress HENMT Head: Yes normal to inspection Ears: hearing grossly normal bilaterally Face and sinus: Yes normal facial exam Mouth: Normal oral and palatal mucosa present Throat: Yes posterior oropharynx normal Eyes General: appearance normal, both eyes and all related structures Neck Neck: Yes no lymphadenopathy and Yes supple Resp Effort & Inspection: normal respiratory effort Auscultation: clear to auscultation bilaterally Cardio Rhythm: regular rhythm Heart sounds: S1 normal heart sound present and S2 normal heart sound present GI Inspection: Yes normal to inspection Palpation (GI): Soft to palpation Percussion: Yes normal to percussion Auscultation: normal bowel sounds Assessment and Plan Assessment & Plan (1) Colonoscopy refused: Comment: 06/2024 Code(s): Z53.20 - Procedure and treatment not carried out because of patient's decision for unspecified reasons (2) Mammogram declined: Comment: 06/2024 Code(s): Z53.20 - Procedure and treatment not carried out because of patient's decision for unspecified reasons (3) Opiate addiction: Comment: on Suboxone Code(s): F11.20 - Opioid dependence, uncomplicated (4) COPD (chronic obstructive pulmonary disease): Comment: f/u with pulmonary, not ready to quit 06/2024 cannot afford inhalers Code(s): J44.9 - Chronic obstructive pulmonary disease, unspecified Plan: Follow-up with ergonomics engineer (5) Depression: Comment: f/u with psychiatry Code(s): F32.9 - Major depressive disorder, single episode, unspecified Plan: Continue current medications (6) Annual physical exam: Code(s): Z00.00 - Encounter for general adult medical examination without abnormal findings Plan: Well-balanced diet regular exercise weight loss discussed with the patient she declined mammogram Pap smear colonoscopy Orders: Orders Lipid Panel 1 Year E78.5 - Hyperlipidemia, unspecified, J44.9 - Chronic obstructive pulmonary disease, unspecified, Z00.00 - Encounter for general adult medical examination without abnormal findings TSH reflex Free T4 1 Year E78.5 - Hyperlipidemia, unspecified, J44.9 - Chronic obstructive pulmonary disease, unspecified, Z00.00 - Encounter for general adult medical examination without abnormal findings Hemoglobin A1c 1 Year R73.9 - Hyperglycemia, unspecified Comprehensive [place]. Panel Fast 1 Year E78.5 - Hyperlipidemia, unspecified, J44.9 - Chronic obstructive pulmonary disease, unspecified, Z00.00 - Encounter for general adult medical examination without abnormal findings Complete Blood Count Auto Diff 1 Year E78.5 - Hyperlipidemia, unspecified, J44.9 - Chronic obstructive pulmonary disease, unspecified, Z00.00 - Encounter for general adult medical examination without abnormal findings Vitamin D 25-OH Total 1 Year E78.5 - Hyperlipidemia, unspecified, J44.9 - Chronic obstructive pulmonary disease, unspecified, Z00.00 - Encounter for general adult medical examination without abnormal findings Medications: Discontinued tiotropium bromide (Spiriva with HandiHaler) puncture 1 cap using device; one dose = 2 inhalations Discontinued Reason: Doctor's Order 1 cap inhalation DAILY 30 days 30 inhalations 6RF Coding Level of Care Code Est Pt Prev Care 40-64y(21089) Diagnoses Colonoscopy refused Z53.20 Mammogram declined Z53.20 Opiate addiction F11.20 COPD (chronic obstructive pulmonary disease) J44.9 Depression F32.9 Annual physical exam Z00.00
== END 2024-06-13 12:00 | disposition home or self-care (01) ==
PROVIDERS: PCP Internal Medicine; Visit Provider Internal Medicine
DX: Z00.00 Encounter for general adult medical examination without abnormal findings (principal); F11.20 Opioid dependence, uncomplicated; J44.9 Chronic obstructive pulmonary disease, unspecified; Z53.20 Procedure and treatment not carried out because of patient's decision for unspecified reasons; F32.9 Major depressive disorder, single episode, unspecified
CPT/HCPCS: 99396

== ENCOUNTER 2024-07-11 10:11 | Outpatient (AMB) | payer OTHER, SELFPAY ==
[2024-07-11 10:15] VITALS: BP 138/67; PULSE 97; O2SAT 95; BMI 36.9
--- NOTE | 2024-07-11 10:15 | MHC.OFFVIS ---
Vital Signs 07/11/24 10:15 Height 5 ft 3 in Weight 208 lb 5.389 oz BMI 36.9 BP 138/67 Blood Pressure Location Rt brachial Position Sitting Pulse 97 Pulse Source Doppler Pulse Oximetry (%) 95 Oxygen Delivery Method Room Air Intake Visit Reasons: Dyspnea Allergies No Known Allergies Allergy (Verified 07/11/24 10:20) HPI HPI Dyspnea: Details: 63-year-old lady, active 40+ pack-year smoker followed for COPD, DEIDRA, and dyspnea on exertion. Patient was not able to afford Stiolto or Spiriva. She has been using her front Symbicort with suboptimal control of his symptoms. She denies acute exacerbations. She tried using CPAP machine, however she was not able to tolerated and returned it. Her AHI is 8. PFSH Medical History COPD (chronic obstructive pulmonary disease) Anxiety Nausea Annual physical exam Tobacco dependence Ankle pain, left Obese GERD (gastroesophageal reflux disease) Fibromyalgia Hyperlipidemia Insomnia Depression Anxiety Derangement of right knee Surgical History H/O colonoscopy History of total left knee replacement (TKR) Hx of right knee surgery Hx of left knee surgery History of repair of right rotator cuff History of arthroscopy of shoulder History of tubal ligation History of section History of lumpectomy of left breast History of arthroscopy of shoulder Family History Father No problems noted. Mother Breast cancer Throat cancer Substance use disorder Maternal Grandmother Alcoholism Maternal Grandfather No problems noted. Paternal Grandmother No problems noted. Paternal Grandfather No problems noted. Son No problems noted. Daughter No problems noted. 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 Do you presently have visiting nurse or other home services: No Alcohol intake: never Patient Tobacco Use Status: Current everyday Tobacco user Tobacco use type: Cigarette Cigarettes Per Day: 10 Years Smoked: 45 e-Cigarette/Vaping Use: Former Use Substance Use Type: Marijuana service: No Current occupational status: employed Cognitive needs: No Hearing needs: No Vision needs: Yes Review of Systems Const Denies daytime sleepiness, Denies excessive sweating, Denies fatigue, Denies fever(s), Denies lethargy, Denies malaise, Denies night sweats, Denies snoring and Denies weight loss Eyes Denies blurry vision and Denies itchy eyes ENT Denies nasal congestion, Denies post nasal drip, Denies sinus pain, Denies sinus pressure and Denies other ( Thrush) Card Denies chest pain, Denies pedal edema, Denies dyspnea, Denies orthopnea and Denies paroxysmal nocturnal dyspnea Resp Denies cough, Denies hemoptysis, Denies excessive phlegm production, Denies dyspnea, Denies snoring and Denies wheezing GI Denies abdominal pain and Denies heartburn Musc Denies myalgias, Denies arthralgias and Denies joint swelling Skin/Breast Denies rash Neuro Denies memory loss and Denies seizure-like activity Psych Denies abnormal sleep pattern, Denies anxiety and Denies memory loss Endo Denies excessive sweating, Denies fatigue and Denies heat intolerance William/Lymph Denies easy bruising Aller/Immun Denies itchy eyes, Denies seasonal rhinorrhea and Denies wheezing Physical Exam Vital Signs: Last Vital Signs Pulse 97 07/11/24 10:15 BP 138/67 07/11/24 10:15 Pulse Ox 95 07/11/24 10:15 Oxygen Delivery Method Room Air 07/11/24 10:15 BMI result Body Mass Index 36.9 Const General: no acute distress and alert Nutritional Appearance: not obese Orientation/consciousness: Other orientation findings ( oriented) HEENT Head: Yes atraumatic Eyes General: appearance normal, both eyes and all related structures Sclerae: sclerae normal EOM: EOMs intact bilaterally Neck Neck: Yes supple Lymphatic: no lymphadenopathy noted Resp Effort & Inspection: normal respiratory effort and no use of accessory muscles Auscultation: clear to auscultation bilaterally Cardio Rate: regular rate Rhythm: regular rhythm Heart sounds: no gallops, no murmurs and no rubs Skin General skin exam: other ( warm) Extrem General: No clubbing, No cyanosis and No edema Assessment & Plan Assessment & Plan (1) COPD (chronic obstructive pulmonary disease): Comment: f/u with pulmonary, not ready to quit 06/2024 cannot afford inhalers Code(s): J44.9 - Chronic obstructive pulmonary disease, unspecified Category: Medical Plan: Suboptimal control on Symbicort. Will switch to Trelegy. Continue albuterol MDI. (2) DEIDRA (obstructive sleep apnea): Code(s): G47.33 - Obstructive sleep apnea (adult) (pediatric) Category: Medical Plan: Patient tried CPAP, however she was not able to tolerated and is not interested in further therapy at this time. Her underlying AHI is 8. (3) Tobacco dependence: Comment: Lung ca screening 11/2020, RUL nodule 5 mm stable , f/u [facility] Code(s): F17.200 - Nicotine dependence, unspecified, uncomplicated Category: Medical Plan: Results of CTA chest from November of 2023 reviewed, now with some nodules at that time. Continue with yearly screening, next in November of 2024, ordered. Orders: Orders CT lung screening 11/30/24 F17.200 - Nicotine dependence, unspecified, uncomplicated Medications: New yzjpocqxiia-ghymfgizx-wzbxjdig 200-62.5-25 mcg (Trelegy Ellipta) 1 inh inhalation DAILY 60 ea 6RF Coding Level of Care Code Est Pt Level 4 (48363) Diagnoses COPD (chronic obstructive pulmonary disease) J44.9 DEIDRA (obstructive sleep apnea) G47.33 Tobacco dependence F17.200
== END 2024-07-11 10:33 | disposition home or self-care (01) ==
PROVIDERS: PCP Internal Medicine; Visit Provider Internal Medicine Pulmonary Disease
DX: J44.9 Chronic obstructive pulmonary disease, unspecified (principal); G47.33 Obstructive sleep apnea (adult) (pediatric); F17.200 Nicotine dependence, unspecified, uncomplicated
CPT/HCPCS: 99214

== ENCOUNTER → 2024-07-11 10:11 | Outpatient (BNVA) | payer OTHER, SELFPAY | PROVIDERS: PCP Internal Medicine; Visit Provider Internal Medicine Pulmonary Disease | DX: J44.9 Chronic obstructive pulmonary disease, unspecified (principal); G47.33 Obstructive sleep apnea (adult) (pediatric); F17.210 Nicotine dependence, cigarettes, uncomplicated | CPT/HCPCS: 99212 ==

== ENCOUNTER 2025-02-13 12:29 | Outpatient (REF) | payer OTHER, SELFPAY ==
--- NOTE | ~2025-02-13 | XR_ITS ---
EXAMINATION: XR CHEST CLINICAL INFORMATION: R05.9 - Cough, unspecified COMPARISON: November 08, 2023. TECHNIQUE: 2 views of the chest were obtained. FINDINGS: Pulmonary reticular pattern. No consolidation, pleural effusion or pneumothorax. Cardiomediastinal silhouette size is mildly prominent, unchanged. Multilevel thoracic spondylosis. Radiopaque anchors screw, right humeral head. Vascular clips in the periphery of the left breast shadow. Focal calcification in the left supraspinatus tendon region. XR/XR chest 2V IMPRESSION: No acute airspace disease. Consider chronic interstitial lung disease. Electronically signed by: Misael Stone MD 02/13/2025 01:20 PM EDT
[2025-02-13 17:25] LABS: Influenza A PCR NEGATIVE (Negative); Influenza B PCR NEGATIVE (Negative); Resp Syncy Virus RNA Qual PCR NEGATIVE (Negative); SARS COV2 PCR INHOUSE NEGATIVE (Negative)
== END 2025-02-13 12:30 | disposition home or self-care (01) ==
LOC: HO.LAB 12:29
PROVIDERS: PCP Internal Medicine; Visit Provider Physician Assistant
DX: R05.9 Cough, unspecified (principal); R09.89 Other specified symptoms and signs involving the circulatory and respiratory systems
CPT/HCPCS: 0241U; 71046; 99212

== ENCOUNTER 2025-02-13 12:29 | Outpatient (AMB) | payer OTHER, SELFPAY ==
--- NOTE | 2025-02-13 12:38 | AM.OFFWIN_ITS ---
Intake Vital Signs 02/13/25 12:39 Weight 216 lb BP 138/82 Blood Pressure Location Lt brachial Position Sitting Pulse 101 H Pulse Source Pulse Oximeter Temp 98.3 F Temp Source Oral Pulse Oximetry (%) 86 L Oxygen Delivery Method Room Air Intake Visit Reasons: EP congestion, wheezing, naouseous Intake Note: Patient here for headache, congestion, upset stomach, nausea and wheezing that has been present since wednesday. Patient Tobacco Use Status: Current everyday Tobacco user Allergies No Known Allergies Allergy (Verified 02/13/25 12:43) Do you need a note to return to daycare/school/sports/work: Yes HPI HPI Comments History of Present Illness Details History The patient is a 64-year-old female presenting with past med hx of COPD not on home O2, DEIDRA, CHF, HLD, current tobacco user with shortness of breath and low oxygen saturation. - She has a known diagnosis of Chronic O bstructive Pulmonary Disease (COPD), using Trelegy, albuterol nebulizer, and albuterol inhaler. She routinely monitors her oxygen levels. - Noted a drop in her oxygen saturation to 85-86%, fluctuating from prior readings of 95% to 99%. - Symptoms began acutely yesterday with fatigue, headaches, and general lethargy, without associated nausea or diarrhea. - Intermittent subjective fevers. - She was recently in the ED with conges tive heart failure, for which she received diuretics including furosemide and Bumex, and continues occasional use of furosemide. She did take one furosemide pill today, unsure of dose, which seemed to help her symptoms. - A recent negative COVID test was repor leigh; however, respiratory distress continues to be a concern. Physical Exam General: Cooperative, healthy appearing, comfortable and no acute distress Orientation/consciousness: Patient oriented x3 Limitations: No limitations Head: Normal to inspection Ears: Hearing grossly normal bilaterally, external ears normal and TM's normal bilaterally Nose: Normal external nose present, Normal nares present and No nasal discharge present Face and sinus: Normal facial exam Mouth: Normal oral and palatal mucosa present and moist mucous membranes Throat: Yes tonsils normal, Yes uvula midline. Posterior oropharynx slight erythema Eyes: Appearance normal, both eyes and all related structures Neck: Normal visual inspection Respiratory: dim, exp wheezes with crackles. Normal respiratory effort, able to speak in complete sentences, no respiratory distress, not tachypneic, no tripod positioning and no use of accessory muscles Skin: No rashes or lesions noted Neuro: Patient oriented x3 Extremities: Normal to inspection and Yes no clubbing, cyanosis or edema PFSH Medical History COPD (chronic obstructive pulmonary disease) Anxiety Nausea Annual physical exam Tobacco dependence Ankle pain, left Obese GERD (gastroesophageal reflux disease) Fibromyalgia Hyperlipidemia Insomnia Depression Anxiety Derangement of right knee Surgical History H/O colonoscopy History of total left knee replacement (TKR) Hx of right knee surgery Hx of left knee surgery History of repair of right rotator cuff History of arthroscopy of shoulder History of tubal ligation History of section History of lumpectomy of left breast History of arthroscopy of shoulder Family History Father No problems noted. Mother Breast cancer Throat cancer Substance use disorder Maternal Grandmother Alcoholism Maternal Grandfather No problems noted. Paternal Grandmother No problems noted. Paternal Grandfather No problems noted. Son No problems noted. Daughter No problems noted. 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 Do you presently have visiting nurse or other home services: No Alcohol intake: never Patient Tobacco Use Status: Current everyday Tobacco user Tobacco use type: Cigarette Cigarettes Per Day: 10 Years Smoked: 45 e-Cigarette/Vaping Use: Former Use Substance Use Type: Marijuana service: No Current occupational status: employed Cognitive needs: No Hearing needs: No Vision needs: Yes Review of Systems Const All systems reviewed & are unremarkable except as noted in HPI and below Physical Exam Vital Signs: Last Vital Signs Temp 98.3 F 02/13/25 12:39 Pulse 101 H 02/13/25 12:39 BP 138/82 02/13/25 12:39 Pulse Ox 86 L 02/13/25 12:39 Oxygen Delivery Method Room Air 02/13/25 12:39 Assessment & Plan Assessment & Plan (1) Shortness of breath: Code(s): R06.02 - Shortness of breath Plan: Oxygen saturation varied between 85-86% on room air, she was mildly tachycardic in the low 100s with a regular heart rate upon auscultation. Her lung sounds were dim with some crackles and wheezes. This is likely a CHF exacerbation as she did have some relief after taking a furosemide pill (unclear what the dose was) she had left over from her last ED discharge. I question whether there is an element of a COPD exacerbation or other pneumonia occurring as well. I did recommend the patient go to the emergency department for a thorough evaluation and workup. Patient adamantly declined so she signed an AMA form. She was educated on the risks and benefits of not going to the emergency department today and she is alert and oriented and able to make her own decisions. I did agree that the next best route would be a chest x-ray to try to assess if she needs more Lasix versus the antibiotics. I did send some steroids to her pharmacy, 50 mg of prednisone for 5 days. Flu, Covid and RSV testing has been sent. I did educate the patient extensively and thoroughly that it is in important that if her symptoms get worse, she seek emergent medical care by calling 911 or going to the emergency department. She is alert and oriented and understands and agrees with the plan. CXR showed No acute airspace disease. Consider chronic interstitial lung disease. We did call the patient to let her know there is no indication for diuretics however if this is not a complete and thorough workup, she should reconsider going to the emergency department. Orders: Orders XR chest 2V Today R05.9 - Cough, unspecified SARS-CoV2/FLU/RSV Today R09.89 - Other specified symptoms and signs involving the circulatory and respiratory systems Medications: New prednisone 50 mg PO QAM 5 tabs 0RF Coding Level of Care Code Est Pt Level 4 (14113) Diagnoses Shortness of breath R06.02
[2025-02-13 12:39] VITALS: BP 138/82; PULSE 101; TEMP 36.8; O2SAT 86
== END 2025-02-13 13:09 | disposition home or self-care (01) ==
PROVIDERS: PCP Internal Medicine; Visit Provider Physician Assistant
DX: R06.02 Shortness of breath (principal)

== ENCOUNTER → 2025-02-13 13:07 | Outpatient (BNV) | payer OTHER, SELFPAY | PROVIDERS: PCP Internal Medicine; Visit Provider Radiology Diagnostic Radiology | DX: R05.9 Cough, unspecified (principal) | CPT/HCPCS: 71046 ==

== ENCOUNTER 2025-03-15 12:57 | Outpatient (AMB) | payer OTHER, SELFPAY ==
[2025-03-15 13:02] VITALS: BP 122/76; PULSE 95; RESP 20; TEMP 37.1; O2SAT 93; BMI 39.1
--- NOTE | 2025-03-15 13:02 | A.OFFPC_ITS ---
Vital Signs 03/15/25 13:02 Height 5 ft 3 in Weight 221 lb BMI 39.1 BP 122/76 Blood Pressure Location Rt brachial Position Sitting Respiration 20 Pulse 95 Pulse Source Pulse Oximeter Temp 98.7 F Temp Source Oral Pulse Oximetry (%) 93 Oxygen Delivery Method Room Air Intake Visit Reasons: lung issues, thrush in mouth Intake Note: Pt is here today for a sick visit. Pt c/o feeling very tired having hard time eating. Allergies No Known Allergies Allergy (Verified 03/15/25 13:03) Medication List - Last Reconciled 03/15/25 by Mame Zamora MD albuterol sulfate 90 mcg/actuation 2 puffs inhalation Q6H PRN buprenorphine-naloxone 12-3 mg 1 film sublingual DAILY duloxetine 60 mg PO DAILY bmbnxtmebof-bidrfmtwd-aeeydbta 200-62.5-25 mcg 1 inh inhalation DAILY ipratropium-albuterol 0.5 mg-3 mg(2.5 mg base)/3 mL 3 mL inhalation Q4-6H PRN 30 days nystatin 10 mL PO QID omeprazole 20 mg PO DAILY@30 prednisone 50 mg PO QAM zolpidem 5 mg PO BEDTIME PRN Tobacco use date assessed: 03/15/25 Dental Screening Dental Screen Date: 06/13/24 Did you have a dental visit in the last 12 months?: No Did you have a dental problem in the last 6 months where you did not have access to dental care?: No Was dental information given to patient?: Patient declined HPI lung issues, thrush in mouth HPI Details Patient presents for the follow-up. She complains of persistent productive cough with greenish sputum dyspnea on exertion and feeling weak and tired. Patient reports worsening anxiety but denies insomnia change in the .appetite suicide ideation. Patient has been using Trelegy 200 mcg daily and albuterol at least twice a day. She continues to smoke a pack a day and has not been able to quit. Patient cancel her appointment for CT of the chest because of the high co-payment but is considering to scheduling it. [facility] Medical History (Updated 03/15/25 @ 14:10 by Mame Zamora MD) COPD (chronic obstructive pulmonary disease) Congestive heart failure DEIDRA (obstructive sleep apnea) Hyperglycemia Opiate addiction Anxiety Nausea Annual physical exam Tobacco dependence Ankle pain, left Obese GERD (gastroesophageal reflux disease) Fibromyalgia Hyperlipidemia Insomnia Depression Anxiety Derangement of right knee Surgical History H/O colonoscopy History of total left knee replacement (TKR) Hx of right knee surgery Hx of left knee surgery History of repair of right rotator cuff History of arthroscopy of shoulder History of tubal ligation History of section History of lumpectomy of left breast History of arthroscopy of shoulder Family History Father No problems noted. Mother Breast cancer Throat cancer Substance use disorder Maternal Grandmother Alcoholism Maternal Grandfather No problems noted. Paternal Grandmother No problems noted. Paternal Grandfather No problems noted. Son No problems noted. Daughter No problems noted. 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 1. Little interest or pleasure in doing things: more than half the days 2. Feeling down, depressed, or hopeless: more than half the days 3. Trouble falling or staying asleep, or sleeping too much: several days 4. Feeling tired or having little energy: more than half the days 5. Poor appetite or overeating: more than half the days 6. Feeling bad about yourself - or that you are a failure or have let yourself or your family down: several days 7. Trouble concentrating on things, such as reading the newspaper or watching television: more than half the days 8. Moving or speaking so slowly that other people could have noticed. Or the opposite - being so fidgety or restless that you have been moving around a lot more than usual: several days 9. Thoughts that you would be better off or of hurting yourself in some way: not at all Total score: 13 Depression Screening Interpretation: Positive Depression Screening Done: Yes 66578 - PHQ-9 Billing: Yes Source: Developed by Drs. Tawanda Gottlieb, Lesa Jeff, Peter Araujo and colleagues, with an educational sandi from [employer]. Thrive Questionnaire Date Thrive assessed: 03/15/25 I am a: Patient What is your living situation today?: I have a steady place to live Within the past 12 months, did the food you bought not last and you didn't have the money to get more?: Never true Within the past 12 months, did you worry whether your food would run out before you got money to buy more?: Never true Do you have trouble paying for medicines?: Yes Do you have trouble getting transportation to medical appointments?: No Do you have trouble paying your heating and electricity bill?: No Do you have trouble taking care of your child, family member or friend?: No Do you have trouble with day-to-day activities such as bathing, preparing meals, shopping, managing finances, etc.?: No Are you currently unemployed and looking for a job?: No Are you interested in more education?: No Please select the resources that you would like help with: Paying for medicine Currently or been in a relationship where the following occur: No concerns reported THRIVE Score: 0 AUDIT C Alcohol Use Questionnaire (AUDIT-C) 1. How often do you have a drink containing alcohol?: Monthly or less 2. How many drinks containing alcohol do you have on a typical day when you are drinking?: 1 or 2 3. How often do you have six or more drinks on one occasion?: Never Total Score: 1 NATTY-7 AMB Questionnaire NATTY-7 Date NATTY - 7 assessed: 03/15/25 Feeling nervous, anxious, or on edge: 1 = Several days Not being able to stop or control worryin = Several days Worrying too much about different things: 1 = Several days Trouble relaxin = Several days Being so restless that it is hard to sit still: 1 = Several days Becoming easily annoyed or irritable: 1 = Several days Feeling afraid as if something awful might happen: 0 = Not at all Total NATTY-7 score (0-4 normal; 5-9 mild; 10-14 moderate; 15-21 severe): 6 Source: Developed by Drs. Tawanda Gottlieb, Lesa Jeff, Peter Araujo and colleagues, with an educational sandi from [employer]. NATTY-7 Assessment Billing NATTY-7 Assessment Tool: NATTY-7 Assessment 63434 Review of Systems Const All systems reviewed & are unremarkable except as noted in HPI and below Eyes Reports no additional complaints ENT Reports no additional complaints Card Reports no additional complaints Resp Reports no additional complaints GI Reports no additional complaints Reports no additional complaints Physical exam (Primary Care) Vital Signs: Last Vital Signs Temp 98.7 F 03/15/25 13:02 Pulse 95 03/15/25 13:02 Resp 20 03/15/25 13:02 BP 122/76 03/15/25 13:02 Pulse Ox 93 03/15/25 13:02 Oxygen Delivery Method Room Air 03/15/25 13:02 BMI result Body Mass Index 39.1 Tobacco/Smoking Status: Tobacco use Status Tobacco use date assessed 03/15/25 03/15/25 13:04 Patient Tobacco Use Status Current everyday Tobacco 03/15/25 13:04 Tobacco use type Cigarette 03/15/25 13:04 e-Cigarette/Vaping Use Former Use 03/15/25 13:04 PHQ-9: PHQ-9 Score PHQ-9: Total score 13 03/15/25 13:20 Depression Screening Interpretation: Positive Thrive Assessment: Date of Thrive Assessment Date Thrive assessed 03/15/25 03/15/25 13:04 Currently or been in a relationship where the following occur: No concerns reported Const General: no acute distress HENMT Head: Yes normal to inspection Face and sinus: Yes normal facial exam Neck Neck: Yes no lymphadenopathy and Yes supple Resp Effort & Inspection: able to speak in complete sentences Auscultation: rhonchi, wheezes and diminished lung sounds Cardio Rhythm: regular rhythm Heart sounds: S1 normal heart sound present and S2 normal heart sound present GI Inspection: Yes normal to inspection Palpation (GI): Soft to palpation Percussion: Yes normal to percussion Coding Level of Care Code Est Pt Level 4 (73628) Diagnoses Hyperlipidemia E78.5 Tobacco dependence F17.200 COPD (chronic obstructive pulmonary disease) J44.9 Hyperglycemia R73.9 Opiate addiction F11.20 Anxiety F41.9 Additional Codes NATTY-7 Assessment Billing - NATTY-7 Assessment Tool: NATTY-7 Assessment 70661 ([id number]) PHQ-9 - 70203 - PHQ-9 Billing: Yes ([id number]) Assessment & Plan Assessment & Plan (1) Hyperlipidemia: Comment: can not tolerate statins, myalgia, diet controlled Code(s): E78.5 - Hyperlipidemia, unspecified Category: Medical Plan: Return for fasting blood work (2) Tobacco dependence: Comment: Lung ca screening 11/2020, RUL nodule 5 mm stable , f/u [facility] Code(s): F17.200 - Nicotine dependence, unspecified, uncomplicated Category: Medical Plan: Tobacco quitting discussed with the patient, she will schedule overdue CT of the chest (3) COPD (chronic obstructive pulmonary disease): Comment: f/u with pulmonary, not ready to quit smoking Code(s): J44.9 - Chronic obstructive pulmonary disease, unspecified Category: Medical Plan: Continue Trelegy and albuterol inhaler doxycycline 100 mg twice a day for 1 week as prescribed. Patient refused to take prednisone. She will follow-up with healthcare consultant (4) Hyperglycemia: Code(s): R73.9 - Hyperglycemia, unspecified Category: Medical Plan: Patient will return for fasting blood including A1c (5) Opiate addiction: Comment: on Suboxone Code(s): F11.20 - Opioid dependence, uncomplicated Category: Medical Plan: Follow-up with [employer] program (6) Anxiety: Code(s): F41.9 - Anxiety disorder, unspecified Category: Medical Plan: Add BuSpar 10 mg twice a day to duloxetine. Patient was advised to start counseling. She declined referral to psychiatrist Orders: Orders Comprehensive [place]. Panel Fast Today E78.5 - Hyperlipidemia, unspecified, F17.200 - Nicotine dependence, unspecified, uncomplicated, J44.9 - Chronic obstructive pulmonary disease, unspecified Complete Blood Count Auto Diff Today E78.5 - Hyperlipidemia, unspecified, F17.200 - Nicotine dependence, unspecified, uncomplicated, J44.9 - Chronic obstructive pulmonary disease, unspecified Lipid Panel Today E78.5 - Hyperlipidemia, unspecified, F17.200 - Nicotine dependence, unspecified, uncomplicated, J44.9 - Chronic obstructive pulmonary disease, unspecified TSH reflex Free T4 Today E78.5 - Hyperlipidemia, unspecified, F17.200 - Nicotine dependence, unspecified, uncomplicated, J44.9 - Chronic obstructive pulmonary disease, unspecified Vitamin D 25-OH Total Today E78.5 - Hyperlipidemia, unspecified, F17.200 - Nicotine dependence, unspecified, uncomplicated, J44.9 - Chronic obstructive pulmonary disease, unspecified Hemoglobin A1c Today R73.9 - Hyperglycemia, unspecified Medications: New buspirone 10 mg PO BID 180 tabs 0RF doxycycline hyclate 100 mg PO BID 14 tabs 0RF Discontinued ipratropium-albuterol 0.5 mg-3 mg(2.5 mg base)/3 mL Discontinued Reason: Doctor's Order 3 mL inhalation Q4-6H 30 days PRN 270 mL 6RF wheezing prednisone Discontinued Reason: Doctor's Order 50 mg PO QAM 5 tabs 0RF nystatin swish and swallow Discontinued Reason: Doctor's Order 10 mL PO QID 250 mL 0RF
== END 2025-03-15 13:55 | disposition home or self-care (01) ==
LOC: HO.HMCC 12:58
PROVIDERS: PCP Internal Medicine; Visit Provider Internal Medicine
DX: E78.5 Hyperlipidemia, unspecified (principal); J44.9 Chronic obstructive pulmonary disease, unspecified; F11.20 Opioid dependence, uncomplicated; F17.200 Nicotine dependence, unspecified, uncomplicated; R73.9 Hyperglycemia, unspecified; F41.9 Anxiety disorder, unspecified

== ENCOUNTER → 2025-03-15 12:57 | Outpatient (BNVA) | payer OTHER, SELFPAY | PROVIDERS: PCP Internal Medicine; Visit Provider Internal Medicine | DX: E78.5 Hyperlipidemia, unspecified (principal); J44.9 Chronic obstructive pulmonary disease, unspecified; R73.9 Hyperglycemia, unspecified; F11.20 Opioid dependence, uncomplicated; F41.9 Anxiety disorder, unspecified; F17.210 Nicotine dependence, cigarettes, uncomplicated | CPT/HCPCS: 96127; 99212 ==

== ENCOUNTER 2025-04-27 12:43 | Outpatient (REF) | payer OTHER, SELFPAY ==
--- NOTE | ~2025-04-27 | XR_ITS ---
EXAMINATION: XR CHEST CLINICAL INFORMATION: J18.9 - Pneumonia, unspecified organism COMPARISON: 02/13/2025 TECHNIQUE: Frontal view of the chest was obtained. FINDINGS: Mild cardiac enlargement. Mediastinal and hilar contours appear normal. Aortic mural calcification. There is a small left layering effusion with underlying parenchymal consolidation. Right lung grossly appears clear. No pneumothorax. No focal osseous or soft tissue abnormality. Surgical anchor noted right humeral head. Surgical clips noted left breast. Calcific tendinopathy of the left rotator cuff. XR/XR chest 1V IMPRESSION: 1. Small left layering effusion with underlying left base parenchymal consolidation, for which atelectasis and/or pneumonia is a consideration. Recommend radiographic follow-up to resolution. 2. Mild cardiac enlargement. 3. The right lung appears clear. Electronically signed by: Murali Mina MD 04/27/2025 02:23 PM EDT
== END 2025-04-27 12:44 | disposition home or self-care (01) ==
LOC: HO.HMGCX 12:43
PROVIDERS: PCP Internal Medicine; Visit Provider Internal Medicine
DX: J44.9 Chronic obstructive pulmonary disease, unspecified (principal); J18.9 Pneumonia, unspecified organism; R09.02 Hypoxemia; I50.9 Heart failure, unspecified; F32.9 Major depressive disorder, single episode, unspecified; F11.20 Opioid dependence, uncomplicated
CPT/HCPCS: 71045; 99212

== ENCOUNTER 2025-04-27 12:43 | Outpatient (AMB) | payer OTHER, SELFPAY ==
[2025-04-27 12:57] VITALS: BP 114/68; PULSE 102; RESP 20; TEMP 37; O2SAT 92; BMI 37.2
--- NOTE | 2025-04-27 12:57 | MHC.PC.OV ---
Vital Signs 04/27/25 12:57 Height 5 ft 3 in Weight 210 lb BMI 37.2 BP 114/68 Blood Pressure Location Lt brachial Position Sitting Respiration 20 Pulse 102 H Pulse Source Pulse Oximeter Temp 98.6 F Temp Source Oral Pulse Oximetry (%) 92 Oxygen Delivery Method Room Air Intake Visit Reasons: DC follow up [facility] Intake Note: Pt is here today for Hospital follow up visit. Allergies No Known Allergies Allergy (Verified 04/27/25 13:10) Medication List - Last Reconciled 04/27/25 by Mame Zamora MD albuterol sulfate 90 mcg/actuation 2 puffs inhalation Q6H PRN buprenorphine-naloxone 12-3 mg 1 film sublingual DAILY buspirone 10 mg PO BID duloxetine 60 mg PO DAILY julxyvrpqfy-ahuruggmc-xnsuqfwg 200-62.5-25 mcg 1 inh inhalation DAILY furosemide 20 mg PO DAILY PRN nicotine 1 patch transdermal DAILY omeprazole 20 mg PO DAILY@0630 zolpidem 5 mg PO BEDTIME PRN Tobacco use date assessed: 04/27/25 Dental Screening Dental Screen Date: 04/27/25 Did you have a dental visit in the last 12 months?: No Did you have a dental problem in the last 6 months where you did not have access to dental care?: No Was dental information given to patient?: Patient declined HPI DC follow up [facility] HPI Details Patient presents for the follow-up of hospitalization at [facility] from April 02 through for community-acquired pneumonia COPD exacerbation. Patient was discharged home with supplemental O2. She been using it mainly at night but reports hypoxemia episodes with physical activity. Patient denies cough wheezing night sweats. She has been cutting down on tobacco down to 4 cigarettes a day. Patient has been using Trelegy and albuterol as needed. [facility] Medical History (Updated 04/27/25 @ 15:56 by Mame Zamora MD) COPD (chronic obstructive pulmonary disease) Congestive heart failure DEIDRA (obstructive sleep apnea) Hyperglycemia Opiate addiction Anxiety Nausea Annual physical exam Tobacco dependence Ankle pain, left Obese GERD (gastroesophageal reflux disease) Fibromyalgia Hyperlipidemia Insomnia Depression Anxiety Derangement of right knee Surgical History H/O colonoscopy History of total left knee replacement (TKR) Hx of right knee surgery Hx of left knee surgery History of repair of right rotator cuff History of arthroscopy of shoulder History of tubal ligation History of section History of lumpectomy of left breast History of arthroscopy of shoulder Family History Father No problems noted. Mother Breast cancer Throat cancer Substance use disorder Maternal Grandmother Alcoholism Maternal Grandfather No problems noted. Paternal Grandmother No problems noted. Paternal Grandfather No problems noted. Son No problems noted. Daughter No problems noted. 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 Do you presently have visiting nurse or other home services: No Alcohol intake: never Patient Tobacco Use Status: Current everyday Tobacco user Tobacco use type: Cigarette Cigarettes Per Day: 4 Years Smoked: 45 Packs per year/per ci.00 e-Cigarette/Vaping Use: Former Use Substance Use Type: Marijuana service: No Current occupational status: employed Cognitive needs: No Hearing needs: No Vision needs: Yes Questionnaire Thrive Questionnaire Date Thrive assessed: 02/27/25 I am a: Patient What is your living situation today?: I have a steady place to live Within the past 12 months, did the food you bought not last and you didn't have the money to get more?: Never true Within the past 12 months, did you worry whether your food would run out before you got money to buy more?: Never true Do you have trouble paying for medicines?: Yes Do you have trouble getting transportation to medical appointments?: No Do you have trouble paying your heating and electricity bill?: No Do you have trouble taking care of your child, family member or friend?: No Do you have trouble with day-to-day activities such as bathing, preparing meals, shopping, managing finances, etc.?: No Are you currently unemployed and looking for a job?: No Are you interested in more education?: No Please select the resources that you would like help with: Paying for medicine Currently or been in a relationship where the following occur: No concerns reported THRIVE Score: 0 NATTY-7 AMB Questionnaire NATTY-7 Date NATTY - 7 assessed: 03/15/25 Source: Developed by Lesa Jordan B.W. Tomer, Peter Araujo and colleagues, with an educational sandi from [employer]. Review of Systems Const All systems reviewed & are unremarkable except as noted in HPI and below Eyes Reports no additional complaints ENT Reports no additional complaints Card Reports no additional complaints Resp Reports no additional complaints GI Reports no additional complaints Reports no additional complaints Physical exam (Primary Care) Vital Signs: Last Vital Signs Temp 98.6 F 04/27/25 12:57 Pulse 102 H 04/27/25 12:57 Resp 20 04/27/25 12:57 BP 114/68 04/27/25 12:57 Pulse Ox 92 04/27/25 12:57 Oxygen Delivery Method Room Air 04/27/25 12:57 BMI result Body Mass Index 37.2 Tobacco/Smoking Status: Tobacco use Status Tobacco use date assessed 04/27/25 04/27/25 13:16 Patient Tobacco Use Status Current everyday Tobacco 04/27/25 12:59 Tobacco use type Cigarette 04/27/25 12:59 e-Cigarette/Vaping Use Former Use 04/27/25 12:59 Thrive Assessment: Date of Thrive Assessment Date Thrive assessed 02/27/25 04/27/25 12:59 Currently or been in a relationship where the following occur: No concerns reported Const General: no acute distress HENMT Face and sinus: Yes normal facial exam Eyes General: appearance normal, both eyes and all related structures Resp Effort & Inspection: normal respiratory effort Auscultation: diminished lung sounds Cardio Rhythm: regular rhythm Heart sounds: S1 normal heart sound present and S2 normal heart sound present GI Inspection: Yes normal to inspection Percussion: Yes normal to percussion Coding Level of Care Code Est Pt Level 4 (59219) Complex EM visit Add On G2211 Diagnoses COPD (chronic obstructive pulmonary disease) J44.9 Hypoxia R09.02 Congestive heart failure I50.9 Depression F32.9 Opiate addiction F11.20 Assessment & Plan Assessment & Plan (1) COPD (chronic obstructive pulmonary disease): Comment: f/u with pulmonary, not ready to quit smoking Code(s): J44.9 - Chronic obstructive pulmonary disease, unspecified Category: Medical Plan: Continue Trelegy albuterol PRN and supplemental O2 with the exertion with monitoring O2 sat. Patient will be referred to pulmonary rehab, repeat chest x-ray to follow-up on pneumonia. Follow-up with pulmonology (2) Hypoxia: Code(s): R09.02 - Hypoxemia Category: Medical Plan: Continue supplemental O2 (3) Congestive heart failure: Comment: Echo 12/01 nl EF, mild-mod pul HTN, on furosemide Code(s): I50.9 - Heart failure, unspecified Category: Medical Plan: Continue furosemide (4) Depression: Comment: f/u with psychiatry Code(s): F32.9 - Major depressive disorder, single episode, unspecified Category: Medical Plan: Continue current medications follow-up with psychiatry (5) Opiate addiction: Comment: on Suboxone Code(s): F11.20 - Opioid dependence, uncomplicated Category: Medical Plan: On Suboxone Orders: Orders Pulmonary Rehab Today J18.9 - Pneumonia, unspecified organism, J44.9 - Chronic obstructive pulmonary disease, unspecified, R09.02 - Hypoxemia XR chest 1V Today J18.9 - Pneumonia, unspecified organism
== END 2025-04-27 13:59 | disposition home or self-care (01) ==
LOC: HO.HMCC 12:44
PROVIDERS: PCP Internal Medicine; Visit Provider Internal Medicine
DX: J44.9 Chronic obstructive pulmonary disease, unspecified (principal); I50.9 Heart failure, unspecified; F11.20 Opioid dependence, uncomplicated; R09.02 Hypoxemia; F32.9 Major depressive disorder, single episode, unspecified

== ENCOUNTER → 2025-04-27 13:54 | Outpatient (BNV) | payer OTHER, SELFPAY | PROVIDERS: PCP Internal Medicine; Visit Provider Radiology Diagnostic Radiology | DX: J94.8 Other specified pleural conditions (principal) | CPT/HCPCS: 71045 ==

== ENCOUNTER 2025-05-08 07:30 | Outpatient (REF) | payer OTHER, SELFPAY ==
--- NOTE | ~2025-05-08 | CT_ITS ---
EXAMINATION: CT LUNG SCREENING HISTORY: F17.200 - Nicotine dependence, unspecified, uncomplicated TECHNIQUE: Low dose axial images were obtained from the sternal notch to upper abdomen without IV contrast per standard departmental protocol. Sagittal and coronal reformatted images were also obtained and reviewed. One or more of the following techniques was used for dose reduction: Automated exposure control, adjustment of the mA and/or kV according to patient size, use of iterative reconstruction technique. DLP: 53 mGy-cm COMPARISON: Comparison is made with the prior examination dated 11/10/2023. FINDINGS: Lung nodules: Again seen is a faint nodular density along the right major fissure (series 4, image 73) which likely represents an intrapulmonary lymph node. There are atelectatic changes at the right lung base and along the left major fissure with more prominent airspace opacity in the lingula which may represent atelectasis or pneumonia. Emphysema: none Coronary Calcification: mild Aortic Arch Calcification: none Potentially Significant Incidentals : none Additional Chest Findings: There is a small left pleural effusion. There is no right pleural or pericardial effusion. No mediastinal or axillary lymphadenopathy is identified. Visualized upper abdomen: The visualized portions of the liver, spleen, and adrenals have an unremarkable unenhanced appearance. CT/CT lung screening IMPRESSION: Findings suggestive of an infectious or inflammatory process in the lingula with confluent airspace opacity and an associated small pleural effusion. LUNG-RADS ASSESSMENT: Lung-RADS 0: Incomplete MANAGEMENT: 1-3 month LDCT Category S: N/A Electronically signed by: Tawanda Garcia MD 05/08/2025 08:58 AM EDT
[2025-05-08 08:10] LABS: MANUAL DIFF FLAG NO
[2025-05-08 08:16] LABS: Hematocrit 41.0 % (37.0-47.0); Hemoglobin 12.5 g/dl (12.0-16.0); Imm Gran Abs Auto 0.03 X10*3/uL (0.00-0.03); Imm Gran Pct Auto 0.5 % (0.0-0.4); Lymphocytes Absolute Auto 0.8 X10*3/uL (1.2-4.9); Mean Corpuscular HGB Conc 30.5 g/dl (31.0-35.0); Mean Corpuscular Hemoglobin 26.0 pg (27.0-33.0); Mean Corpuscular Volume 85.4 fL (80.0-98.0); NRBC Abs Auto 0.000 X10*3/uL (0.0-0.012); NRBC Pct Auto 0.0 /100WBC (0.0-0.2); Platelet Count 294 X10*3/uL (160-400); Red Blood Count 4.80 X10*6/uL (4.20-5.50); White Blood Count 5.8 X10*3/uL (4.8-10.8)
[2025-05-08 08:30] LABS: Hemoglobin A1C 146.2019 umol/L; Total Hemoglobin (HGBA1C) 3360.5399 umol/L
[2025-05-08 08:51] LABS: Alanine Aminotransferase 6 U/L (0-31); Albumin Level 3.7 g/dL (3.5-5.0); Alkaline Phosphatase 76 U/L (39-117); Anion Gap 10 (12-20); Aspartate Amino Transferase 22 U/L (5-31); Blood Urea Nitrogen 14 mg/dL (9-16); Calcium 9.2 mg/dL (8.4-10.2); Carbon Dioxide 35 mmol/L (22-29); Chloride 99 mmol/L (96-108); Cholesterol 221 mg/dL (<200); Estimated Glomerular Filt Rate > 60; HDL Cholesterol 52 mg/dL (>40); Potassium 4.9 mmol/L (3.3-5.1); Sodium 139 mmol/L (135-145); Total Protein 6.9 g/dL (6.5-8.0); Triglycerides 96 mg/dL (<150)
== END 2025-05-08 07:31 | disposition home or self-care (01) ==
LOC: HO.CT 07:30
PROVIDERS: Absent Provider Internal Medicine; PCP Internal Medicine; Visit Provider Internal Medicine Pulmonary Disease
DX: Z12.2 Encounter for screening for malignant neoplasm of respiratory organs (principal); F17.200 Nicotine dependence, unspecified, uncomplicated; J44.9 Chronic obstructive pulmonary disease, unspecified; E78.5 Hyperlipidemia, unspecified; R73.9 Hyperglycemia, unspecified
CPT/HCPCS: 36415; 71271; 80053; 80061; 82306; 83036; 84443; 85025

== ENCOUNTER → 2025-05-08 07:32 | Outpatient (BNV) | payer OTHER, SELFPAY | PROVIDERS: Absent Provider Internal Medicine; PCP Internal Medicine; Visit Provider Radiology Diagnostic Radiology | DX: F17.210 Nicotine dependence, cigarettes, uncomplicated (principal) | CPT/HCPCS: 71271 ==

== ENCOUNTER 2025-05-14 08:04 | Outpatient (REF) | payer OTHER, SELFPAY ==
--- NOTE | ~2025-05-14 | XR_ITS ---
CLINICAL HISTORY: M25.551 - Pain in right hip AP pelvis, 2 views each hip Comparison: None Findings: No abnormal calcifications. The bilateral femoroacetabular joint distances are mildly narrowed. Pelvic bowel gas pattern unremarkable. The sacroiliac joints are unremarkable. Hips are normal. No significant degenerative change, fractures or dislocations Impression: Mild narrowing of the left and right femoroacetabular joints. Articular surfaces are well preserved. No acute skeletal abnormality. This document has been electronically signed by: Vadim Duff MD on 05/14/2025 13:12:52
== END 2025-05-14 08:05 | disposition home or self-care (01) ==
LOC: HO.HMGCX 08:04
PROVIDERS: PCP Internal Medicine; Visit Provider Internal Medicine
DX: M25.552 Pain in left hip (principal); M25.551 Pain in right hip; M54.2 Cervicalgia; J44.9 Chronic obstructive pulmonary disease, unspecified; F17.200 Nicotine dependence, unspecified, uncomplicated; Z71.6 Tobacco abuse counseling
CPT/HCPCS: 73521; 99212

== ENCOUNTER 2025-05-14 08:04 | Outpatient (AMB) | payer OTHER, SELFPAY ==
[2025-05-14 08:09] VITALS: BP 120/70; PULSE 93; RESP 20; TEMP 37.4; O2SAT 91; BMI 37.2
--- NOTE | 2025-05-14 08:12 | A.OFFPC_ITS ---
Vital Signs 05/14/25 08:09 Height 5 ft 3 in Weight 210 lb BMI 37.2 BP 120/70 Blood Pressure Location Lt brachial Position Sitting Respiration 20 Pulse 93 Pulse Source Pulse Oximeter Temp 99.4 F Temp Source Oral Pulse Oximetry (%) 91 L Oxygen Delivery Method Room Air Intake Visit Reasons: Ongoing pain Intake Note: Pt is here today for a follow up visit on ongoing pain in her groin area on the R side and pain in her shoulder L side and numbness in her L thumb. Allergies Wpsdsep-SEB-CdE Reductase Inhibitor Adverse Reaction (Intermediate, Verified 05/14/25 08:12) myalgia Medication List - Last Reconciled 05/14/25 by Mame Zamora MD albuterol sulfate 90 mcg/actuation 2 puffs inhalation Q6H PRN baclofen 20 mg PO BEDTIME buprenorphine-naloxone 12-3 mg 1 film sublingual DAILY buspirone 10 mg PO BID duloxetine 60 mg PO DAILY ndafngghqza-phoglzqov-hamjbqis 200-62.5-25 mcg 1 inh inhalation DAILY furosemide 20 mg PO DAILY PRN meloxicam 15 mg PO DAILY nicotine 1 patch transdermal DAILY omeprazole 20 mg PO DAILY@0630 zolpidem 5 mg PO BEDTIME PRN Tobacco use date assessed: 04/27/25 Dental Screening Dental Screen Date: 04/27/25 HPI Ongoing pain HPI Details Pt presents for the follow-up. She completed course of Levaquin for COPD exacerbation/pneumonia and is feeling better. Patient denies wheezing or coughing she has been using Trelegy and albuterol as needed and supplemental O2 at night. Patient complains of 1 week of left-sided neck pain radiating to left shoulder worse when turning the head to the side. Patient denies weakness or numbness in the left upper extremity. She denies pain in the shoulder joint when using it. Patient complains of right groin pain worse when trying to walk for 1 week. She denies any injury, pain at rest, weakness or numbness in the left lower extremity, lower back pain. Patient has been taking a meloxicam without significant relief. [facility] Medical History COPD (chronic obstructive pulmonary disease) Congestive heart failure DEIDRA (obstructive sleep apnea) Hyperglycemia Opiate addiction Anxiety Nausea Annual physical exam Tobacco dependence Ankle pain, left Obese GERD (gastroesophageal reflux disease) Fibromyalgia Hyperlipidemia Insomnia Depression Anxiety Derangement of right knee Surgical History H/O colonoscopy History of total left knee replacement (TKR) Hx of right knee surgery Hx of left knee surgery History of repair of right rotator cuff History of arthroscopy of shoulder History of tubal ligation History of section History of lumpectomy of left breast History of arthroscopy of shoulder Family History Father No problems noted. Mother Breast cancer Throat cancer Substance use disorder Maternal Grandmother Alcoholism Maternal Grandfather No problems noted. Paternal Grandmother No problems noted. Paternal Grandfather No problems noted. Son No problems noted. Daughter No problems noted. 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 Do you presently have visiting nurse or other home services: No Alcohol intake: never Patient Tobacco Use Status: Current everyday Tobacco user Tobacco use type: Cigarette Cigarettes Per Day: 4 Years Smoked: 45 e-Cigarette/Vaping Use: Former Use Substance Use Type: Marijuana service: No Current occupational status: employed Cognitive needs: No Hearing needs: No Vision needs: Yes Questionnaire Thrive Questionnaire Date Thrive assessed: 02/27/25 I am a: Patient What is your living situation today?: I have a steady place to live Within the past 12 months, did the food you bought not last and you didn't have the money to get more?: Never true Within the past 12 months, did you worry whether your food would run out before you got money to buy more?: Never true Do you have trouble paying for medicines?: Yes Do you have trouble getting transportation to medical appointments?: No Do you have trouble paying your heating and electricity bill?: No Do you have trouble taking care of your child, family member or friend?: No Do you have trouble with day-to-day activities such as bathing, preparing meals, shopping, managing finances, etc.?: No Are you currently unemployed and looking for a job?: No Are you interested in more education?: No Please select the resources that you would like help with: Paying for medicine Currently or been in a relationship where the following occur: No concerns reported THRIVE Score: 0 NATTY-7 AMB Questionnaire NATTY-7 Date NATTY - 7 assessed: 03/15/25 Source: Developed by Drs. Tawanda Gottlieb, Lesa Jeff, Peter Araujo and colleagues, with an educational sandi from [employer]. Review of Systems Const All systems reviewed & are unremarkable except as noted in HPI and below Eyes Reports no additional complaints ENT Reports no additional complaints Card Reports no additional complaints Resp Reports no additional complaints GI Reports no additional complaints Reports no additional complaints Physical exam (Primary Care) Vital Signs: Last Vital Signs Temp 99.4 F 05/14/25 08:09 Pulse 93 05/14/25 08:09 Resp 20 05/14/25 08:09 BP 120/70 05/14/25 08:09 Pulse Ox 91 L 05/14/25 08:09 Oxygen Delivery Method Room Air 05/14/25 08:09 BMI result Body Mass Index 37.2 Tobacco/Smoking Status: Tobacco use Status Tobacco use date assessed 04/27/25 05/14/25 08:15 Patient Tobacco Use Status Current everyday Tobacco 05/14/25 08:15 Tobacco use type Cigarette 05/14/25 08:15 e-Cigarette/Vaping Use Former Use 05/14/25 08:15 Thrive Assessment: Date of Thrive Assessment Date Thrive assessed 02/27/25 05/14/25 08:15 Currently or been in a relationship where the following occur: No concerns reported Const General: no acute distress Neck Other: There is a decreased range of motion in cervical spine, there is a paraspinal tenderness in lower left cervical region and supraspinatus Neck: Yes no lymphadenopathy and Yes supple Resp Effort & Inspection: normal respiratory effort Auscultation: diminished lung sounds Cardio Rhythm: regular rhythm Heart sounds: S1 normal heart sound present and S2 normal heart sound present Extrem Other: There is a full range of motion of the left shoulder no joint tenderness, there is a decreased range of motion in the right hip, straight leg rising 90 degrees bilaterally, motor strength 5/5 bilaterally Coding Level of Care Code Est Pt Level 4 (99356) Diagnoses Hip pain, bilateral M25.551; M25.552 COPD (chronic obstructive pulmonary disease) J44.9 Neck pain M54.2 Assessment & Plan Assessment & Plan (1) Hip pain, bilateral: Code(s): M25.551 - Pain in right hip; M25.552 - Pain in left hip Category: Medical Plan: Obtain x-rays of both hips. Patient will continue naproxen twice a day PT was recommended but patient declined. (2) COPD (chronic obstructive pulmonary disease): Comment: f/u with pulmonary, not ready to quit smoking Code(s): J44.9 - Chronic obstructive pulmonary disease, unspecified Category: Medical Plan: Continue Trelegy supplemental O2 follow-up with pulmonology (3) Neck pain: Code(s): M54.2 - Cervicalgia Category: Medical Plan: Neck exercise discussed with the patient. PT was recommended but patient declined. Baclofen 20 mg q.h.s. will be added Orders: Orders XR hip BI w PEL1V Today M25.551 - Pain in right hip, M25.552 - Pain in left hip Medications: New baclofen 20 mg PO BEDTIME 14 tabs 0RF
== END 2025-05-14 09:19 | disposition home or self-care (01) ==
LOC: HO.HMCC 08:05
PROVIDERS: PCP Internal Medicine; Visit Provider Internal Medicine
DX: M25.551 Pain in right hip (principal); M25.552 Pain in left hip; J44.9 Chronic obstructive pulmonary disease, unspecified; M54.2 Cervicalgia

== ENCOUNTER → 2025-05-14 08:52 | Outpatient (BNV) | payer OTHER, SELFPAY | PROVIDERS: PCP Internal Medicine; Visit Provider Radiology Diagnostic Radiology | DX: M25.551 Pain in right hip (principal) | CPT/HCPCS: 73521 ==

== ENCOUNTER 2025-05-23 08:25 | Outpatient (AMB) | payer OTHER, SELFPAY ==
--- NOTE | 2025-05-23 08:27 | MHC.PC.OV ---
Vital Signs 05/23/25 08:28 Height 5 ft 3 in Weight 207 lb BMI 36.7 BP 118/70 Blood Pressure Location Lt brachial Position Sitting Respiration 20 Pulse 102 H Pulse Source Pulse Oximeter Temp 98.3 F Temp Source Oral Pulse Oximetry (%) 94 Oxygen Delivery Method Room Air Intake Visit Reasons: Recheck rash Intake Note: Pt is here today for a follow up visit on rash. Allergies Spbceur-KFJ-GhF Reductase Inhibitor Adverse Reaction (Intermediate, Verified 05/23/25 08:31) myalgia Medication List - Last Reconciled 05/23/25 by Mame Zamora MD albuterol sulfate 90 mcg/actuation 2 puffs inhalation Q6H PRN baclofen 20 mg PO BEDTIME buprenorphine-naloxone 12-3 mg 1 film sublingual DAILY buspirone 10 mg PO BID duloxetine 60 mg PO DAILY ezetimibe (Zetia) 10 mg PO DAILY ictfogcoezr-zhrxnkvzn-vfmuqwys 200-62.5-25 mcg 1 inh inhalation DAILY furosemide 20 mg PO DAILY PRN meloxicam 15 mg PO DAILY nicotine 1 patch transdermal DAILY omeprazole 20 mg PO DAILY@0630 valacyclovir (Valtrex) 1,000 mg PO BID zolpidem 5 mg PO BEDTIME PRN Tobacco use date assessed: 04/27/25 Dental Screening Dental Screen Date: 04/27/25 HPI Recheck rash HPI Details Patient presents for the follow-up of pruritic rash on the right lower back getting better. Patient complains of persistent pain in the right groin. She has been walking on a treadmill and do stretching exercises at home with some relief. Patient complains of increasing wheezing and coughing for the last few days because of the humid weather. She has been taking Trelegy daily and using albuterol up to 3 times a day. She denies fever chills sputum production [facility] Medical History COPD (chronic obstructive pulmonary disease) Congestive heart failure DEIDRA (obstructive sleep apnea) Hyperglycemia Opiate addiction Anxiety Nausea Annual physical exam Tobacco dependence Ankle pain, left Obese GERD (gastroesophageal reflux disease) Fibromyalgia Hyperlipidemia Insomnia Depression Anxiety Derangement of right knee Surgical History H/O colonoscopy History of total left knee replacement (TKR) Hx of right knee surgery Hx of left knee surgery History of repair of right rotator cuff History of arthroscopy of shoulder History of tubal ligation History of section History of lumpectomy of left breast History of arthroscopy of shoulder Family History Father No problems noted. Mother Breast cancer Throat cancer Substance use disorder Maternal Grandmother Alcoholism Maternal Grandfather No problems noted. Paternal Grandmother No problems noted. Paternal Grandfather No problems noted. Son No problems noted. Daughter No problems noted. 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 Do you presently have visiting nurse or other home services: No Alcohol intake: never Patient Tobacco Use Status: Current everyday Tobacco user Tobacco use type: Cigarette Cigarettes Per Day: 4 Years Smoked: 45 e-Cigarette/Vaping Use: Former Use Substance Use Type: Marijuana service: No Current occupational status: employed Cognitive needs: No Hearing needs: No Vision needs: Yes Questionnaire Thrive Questionnaire Date Thrive assessed: 02/27/25 I am a: Patient What is your living situation today?: I have a steady place to live Within the past 12 months, did the food you bought not last and you didn't have the money to get more?: Never true Within the past 12 months, did you worry whether your food would run out before you got money to buy more?: Never true Do you have trouble paying for medicines?: Yes Do you have trouble getting transportation to medical appointments?: No Do you have trouble paying your heating and electricity bill?: No Do you have trouble taking care of your child, family member or friend?: No Do you have trouble with day-to-day activities such as bathing, preparing meals, shopping, managing finances, etc.?: No Are you currently unemployed and looking for a job?: No Are you interested in more education?: No Please select the resources that you would like help with: Paying for medicine Currently or been in a relationship where the following occur: No concerns reported THRIVE Score: 0 NATTY-7 AMB Questionnaire NATTY-7 Date NATTY - 7 assessed: 03/15/25 Source: Developed by Lesa Jordan B.W. Tomer, Peter Araujo and colleagues, with an educational sandi from [employer]. Review of Systems Const All systems reviewed & are unremarkable except as noted in HPI and below ENT Reports no additional complaints Card Reports no additional complaints Resp Reports no additional complaints GI Reports no additional complaints Reports no additional complaints Physical exam (Primary Care) Vital Signs: Last Vital Signs Temp 98.3 F 05/23/25 08:28 Pulse 102 H 05/23/25 08:28 Resp 20 05/23/25 08:28 BP 118/70 05/23/25 08:28 Pulse Ox 94 05/23/25 08:28 Oxygen Delivery Method Room Air 05/23/25 08:28 BMI result Body Mass Index 36.7 Tobacco/Smoking Status: Tobacco use Status Tobacco use date assessed 04/27/25 05/23/25 08:34 Patient Tobacco Use Status Current everyday Tobacco 05/23/25 08:34 Tobacco use type Cigarette 05/23/25 08:34 e-Cigarette/Vaping Use Former Use 05/23/25 08:34 Thrive Assessment: Date of Thrive Assessment Date Thrive assessed 02/27/25 05/23/25 08:34 Currently or been in a relationship where the following occur: No concerns reported Const General: no acute distress HENMT Head: Yes normal to inspection Resp Effort & Inspection: normal respiratory effort Auscultation: wheezes expiratory wheezes and diminished lung sounds Cardio Rhythm: regular rhythm Heart sounds: S1 normal heart sound present and S2 normal heart sound present Skin Other: Right lower back healing papular rash Extrem Other: This is a slightly decreased range of motion right hip Coding Level of Care Code Est Pt Level 3 (71927) Diagnoses COPD (chronic obstructive pulmonary disease) J44.9 Hip pain, bilateral M25.551; M25.552 Assessment & Plan Assessment & Plan (1) COPD (chronic obstructive pulmonary disease): Comment: f/u with pulmonary, not ready to quit smoking Code(s): J44.9 - Chronic obstructive pulmonary disease, unspecified Category: Medical Plan: Prednisone taper is prescribed. patient will continue Trelegy, albuterol inhaler prn and she has a follow-up with data integrity specialist next week (2) Hip pain, bilateral: Code(s): M25.551 - Pain in right hip; M25.552 - Pain in left hip Category: Medical Plan: Continue stretching exercises Medications: New prednisone Four tablets p.o. q.d. for 3 days then 3 tablets p.o. q.d. for 3 days then 2 tablets p.o. q.d. for 3 days then 1 tablet p.o. q.d. for 3 days 10 mg PO DAILY 30 tabs 0RF Discontinued valacyclovir (Valtrex) Discontinued Reason: Doctor's Order 1,000 mg PO BID 14 tabs 0RF
[2025-05-23 08:28] VITALS: BP 118/70; PULSE 102; RESP 20; TEMP 36.8; O2SAT 94; BMI 36.7
== END 2025-05-23 09:11 | disposition home or self-care (01) ==
LOC: HO.HMCC 08:26
PROVIDERS: PCP Internal Medicine; Visit Provider Internal Medicine
DX: J44.9 Chronic obstructive pulmonary disease, unspecified (principal); M25.551 Pain in right hip; M25.552 Pain in left hip

== ENCOUNTER → 2025-05-23 08:25 | Outpatient (BNVA) | payer OTHER, SELFPAY | PROVIDERS: PCP Internal Medicine; Visit Provider Internal Medicine | DX: M25.551 Pain in right hip (principal); M25.552 Pain in left hip; J44.9 Chronic obstructive pulmonary disease, unspecified | CPT/HCPCS: 99212 ==

== ENCOUNTER 2025-05-31 13:04 | Outpatient (AMB) | payer OTHER, SELFPAY ==
[2025-05-31 13:22] VITALS: BP 122/72; PULSE 109; O2SAT 94; BMI 36.7
--- NOTE | 2025-05-31 13:22 | MHC.OFFVIS ---
Vital Signs 05/31/25 13:22 Height 5 ft 3 in Weight 207 lb BMI 36.7 BP 122/72 Blood Pressure Location Rt brachial Position Sitting Pulse 109 H Pulse Source Pulse Oximeter Pulse Oximetry (%) 94 Oxygen Delivery Method Room Air Intake Visit Reasons: Dyspnea Allergies Kisapdv-KUV-KpE Reductase Inhibitor Adverse Reaction (Intermediate, Verified 05/31/25 13:27) myalgia HPI HPI Dyspnea: Details: 63-year-old lady, active 40+ pack-year smoker followed for COPD, DEIDRA, and dyspnea on exertion. Patient has been using trilogy with reasonable control of her symptoms. She did have recent exacerbation for which she was started on prednisone course by her primary care provider with resolution of acute symptoms. She tried using CPAP machine, however she was not able to tolerated and returned it. Her AHI is 8. PFSH Medical History COPD (chronic obstructive pulmonary disease) Congestive heart failure DEIDRA (obstructive sleep apnea) Hyperglycemia Opiate addiction Anxiety Nausea Annual physical exam Tobacco dependence Ankle pain, left Obese GERD (gastroesophageal reflux disease) Fibromyalgia Hyperlipidemia Insomnia Depression Anxiety Derangement of right knee Surgical History H/O colonoscopy History of total left knee replacement (TKR) Hx of right knee surgery Hx of left knee surgery History of repair of right rotator cuff History of arthroscopy of shoulder History of tubal ligation History of section History of lumpectomy of left breast History of arthroscopy of shoulder Family History Father No problems noted. Mother Breast cancer Throat cancer Substance use disorder Maternal Grandmother Alcoholism Maternal Grandfather No problems noted. Paternal Grandmother No problems noted. Paternal Grandfather No problems noted. Son No problems noted. Daughter No problems noted. 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 Do you presently have visiting nurse or other home services: No Alcohol intake: never Patient Tobacco Use Status: Current everyday Tobacco user Tobacco use type: Cigarette Cigarettes Per Day: 4 Years Smoked: 45 e-Cigarette/Vaping Use: Former Use Substance Use Type: Marijuana service: No Current occupational status: employed Cognitive needs: No Hearing needs: No Vision needs: Yes Review of Systems Const Denies daytime sleepiness, Denies excessive sweating, Denies fatigue, Denies fever(s), Denies lethargy, Denies malaise, Denies night sweats, Denies snoring and Denies weight loss Eyes Denies blurry vision and Denies itchy eyes ENT Denies nasal congestion, Denies post nasal drip, Denies sinus pain, Denies sinus pressure and Denies other ( Thrush) Card Denies chest pain, Denies pedal edema, Denies dyspnea, Denies orthopnea and Denies paroxysmal nocturnal dyspnea Resp Denies cough, Denies hemoptysis, Denies excessive phlegm production, Denies dyspnea, Denies snoring and Denies wheezing GI Denies abdominal pain and Denies heartburn Musc Denies myalgias, Denies arthralgias and Denies joint swelling Skin/Breast Denies rash Neuro Denies memory loss and Denies seizure-like activity Psych Denies abnormal sleep pattern, Denies anxiety and Denies memory loss Endo Denies excessive sweating, Denies fatigue and Denies heat intolerance William/Lymph Denies easy bruising Aller/Immun Denies itchy eyes, Denies seasonal rhinorrhea and Denies wheezing Physical Exam Vital Signs: Last Vital Signs Pulse 109 H 05/31/25 13:22 BP 122/72 05/31/25 13:22 Pulse Ox 94 05/31/25 13:22 Oxygen Delivery Method Room Air 05/31/25 13:22 BMI result Body Mass Index 36.7 Const General: no acute distress and alert Nutritional Appearance: obese Orientation/consciousness: Other orientation findings ( oriented) HEENT Head: Yes atraumatic Eyes General: appearance normal, both eyes and all related structures Sclerae: sclerae normal EOM: EOMs intact bilaterally Neck Neck: Yes supple Lymphatic: no lymphadenopathy noted Resp Effort & Inspection: normal respiratory effort and no use of accessory muscles Auscultation: clear to auscultation bilaterally Cardio Rate: regular rate Rhythm: regular rhythm Heart sounds: no gallops, no murmurs and no rubs Skin General skin exam: other ( warm) Extrem General: No clubbing, No cyanosis and No edema Assessment & Plan Assessment & Plan (1) COPD (chronic obstructive pulmonary disease): Comment: f/u with pulmonary, not ready to quit smoking Code(s): J44.9 - Chronic obstructive pulmonary disease, unspecified Category: Medical Plan: Reasonable control on current regimen of trilogy and albuterol MDI. Continue current regimen. (2) DEIDRA (obstructive sleep apnea): Comment: Patient can not tolerate CPAP Code(s): G47.33 - Obstructive sleep apnea (adult) (pediatric) Category: Medical Plan: Underlying mild obstructive sleep apnea with AHI of 8. Patient was tried on CPAP and was not able to tolerate it. Coding Level of Care Code Est Pt Level 4 (92390) Diagnoses COPD (chronic obstructive pulmonary disease) J44.9 DEIDRA (obstructive sleep apnea) G47.33
== END 2025-05-31 13:42 | disposition home or self-care (01) ==
LOC: HO.HPS 13:05
PROVIDERS: PCP Internal Medicine; Visit Provider Internal Medicine Pulmonary Disease
DX: J44.9 Chronic obstructive pulmonary disease, unspecified (principal); G47.33 Obstructive sleep apnea (adult) (pediatric)
CPT/HCPCS: 99214

== ENCOUNTER → 2025-05-31 13:04 | Outpatient (BNVA) | payer OTHER, SELFPAY | PROVIDERS: PCP Internal Medicine; Visit Provider Internal Medicine Pulmonary Disease | DX: J44.9 Chronic obstructive pulmonary disease, unspecified (principal); G47.33 Obstructive sleep apnea (adult) (pediatric) | CPT/HCPCS: 99212 ==

== ENCOUNTER 2025-06-04 10:50 | Outpatient (REF) | payer OTHER, SELFPAY ==
--- NOTE | ~2025-06-04 | MM_ITS ---
EXAMINATION: MM SCREENING DIGITAL BREAST TOMOSYNTHESIS, BILATERAL CLINICAL INFORMATION: Screening. Asymptomatic. COMPARISON: Mammography: Comparison is made with available priors TECHNIQUE: Digital breast mammography with tomosynthesis is performed in both the craniocaudal and mediolateral oblique views along with computer-aided detection (CAD). FINDINGS: There are scattered areas of fibroglandular density (ACR BI-RADS breast composition Category b). Left: There are no significant masses, abnormal calcifications, or other abnormalities. Postsurgical clips in the left axilla. Right: New focal asymmetry upper central breast far posterior depth question intramammary lymph node. No suspicious calcifications or other abnormal findings. MM/MM tomosynthesis screening BI IMPRESSION: Additional imaging is recommended ASSESSMENT: BI-RADS BI-RADS 0 - Incomplete: Needs additional Imaging. RECOMMENDATION: 1. Additional views of the right breast. 2. Targeted ultrasound if warranted after review of the additional views. 3. Radiology department staff will contact the patient for additional imaging. Additional Imaging required This examination should not preclude the clinical evaluation of a suspicious palpable abnormality. This patient's information was entered into a reminder system with a target due date for their next mammogram. Electronically signed by: Tracie Kirkpatrick DO 06/04/2025 11:48 AM EDT
== END 2025-06-04 10:51 | disposition home or self-care (01) ==
LOC: HO.MAMMO 10:50
PROVIDERS: PCP Internal Medicine; Visit Provider Internal Medicine
DX: Z12.31 Encounter for screening mammogram for malignant neoplasm of breast (principal)
CPT/HCPCS: 77063; 77067

== ENCOUNTER → 2025-06-04 11:00 | Outpatient (BNV) | payer OTHER, SELFPAY | PROVIDERS: PCP Internal Medicine; Visit Provider Internal Medicine | DX: Z12.31 Encounter for screening mammogram for malignant neoplasm of breast (principal) | CPT/HCPCS: 77063; 77067 ==

== ENCOUNTER 2025-06-22 09:53 | Outpatient (REF) | payer OTHER, SELFPAY ==
--- NOTE | ~2025-06-22 | MM_ITS ---
EXAMINATIONS: 1. MM DIAGNOSTIC DIGITAL BREAST TOMOSYNTHESIS, RIGHT 2. Targeted ultrasound of the right breast CLINICAL INFORMATION: Callback from screening for right breast focal asymmetry in the upper breast. COMPARISON: June 04, 2025 TECHNIQUE: Digital breast tomosynthesis is performed in full field ML 90 degrees along with computer-aided detection (CAD). Synthesized 2D images are generated from the tomosynthesis. Spot compression tomosynthesis images were also obtained. FINDINGS: BREAST COMPOSITION: There are scattered areas of fibroglandular density (ACR BI-RADS breast composition Category b). RIGHT BREAST: Approximately 0.5 cm round mass in the upper outer quadrant posterior depth persists on today's images. Targeted ultrasound of the right breast was performed at the location of the mammogram. The survey shows a 0.5 x 0.4 x 0.5 cm simple cyst at 12 o'clock position 9 cm from the nipple. No internal vascularity demonstrated with color Doppler evaluation. MM/MM tomosynthesis added views R IMPRESSION: RIGHT BREAST: Simple cyst at 12 o'clock position. Benign, no mammographic evidence of malignancy. Normal interval follow-up is recommended in 12 months. ASSESSMENT: BI-RADS 2 - Benign Findings RECOMMENDATION: 1 year F/U Results were provided to the patient at time of visit by the technologist. This patient's information was entered into a reminder system with a target due date for their next mammogram. Electronically signed by: Chema Cantu MD 06/22/2025 11:18 AM EDT Workstation: [id number]
== END 2025-06-22 09:54 | disposition home or self-care (01) ==
LOC: HO.MAMMO 09:53
PROVIDERS: PCP Internal Medicine; Visit Provider Internal Medicine
DX: Z12.31 Encounter for screening mammogram for malignant neoplasm of breast (principal); N64.89 Other specified disorders of breast
CPT/HCPCS: 76642; 77061; 77065

== ENCOUNTER → 2025-06-22 10:00 | Outpatient (BNV) | payer OTHER, SELFPAY | PROVIDERS: PCP Internal Medicine; Visit Provider Radiology Body Imaging | DX: N60.01 Solitary cyst of right breast (principal) | CPT/HCPCS: 76642; 77061; 77065 ==

== ENCOUNTER 2025-07-31 06:03 | Outpatient (REF) | payer OTHER, SELFPAY ==
[2025-07-31 12:44] LABS: Anion Gap 9 (12-20)
[2025-07-31 12:49] LABS: Alanine Aminotransferase 15 U/L (0-31); Albumin Level 4.0 g/dL (3.5-5.0); Alkaline Phosphatase 128 U/L (39-117); Aspartate Amino Transferase 27 U/L (5-31); Blood Urea Nitrogen 15 mg/dL (9-16); Calcium 9.3 mg/dL (8.4-10.2); Carbon Dioxide 34 mmol/L (22-29); Chloride 101 mmol/L (96-108); Cholesterol 182 mg/dL (<200); Estimated Glomerular Filt Rate > 60; HDL Cholesterol 58 mg/dL (>40); Potassium 4.4 mmol/L (3.3-5.1); Sodium 140 mmol/L (135-145); Total Protein 7.2 g/dL (6.5-8.0); Triglycerides 100 mg/dL (<150)
== END 2025-07-31 06:04 | disposition home or self-care (01) ==
LOC: HO.HMGCLDS 06:03
PROVIDERS: PCP Internal Medicine; Visit Provider Internal Medicine
DX: Z00.00 Encounter for general adult medical examination without abnormal findings (principal); J44.9 Chronic obstructive pulmonary disease, unspecified; E78.5 Hyperlipidemia, unspecified; E55.9 Vitamin D deficiency, unspecified; R73.9 Hyperglycemia, unspecified
CPT/HCPCS: 36415; 80053; 80061; 82306; 83036; 84443; 85025

== ENCOUNTER 2025-08-01 10:44 | Outpatient (AMB) | payer OTHER, SELFPAY ==
--- NOTE | 2025-08-01 10:55 | MHC.PC.OV ---
Vital Signs 08/01/25 10:58 Height 5 ft 3 in Weight 210 lb BMI 37.2 BP 122/66 Blood Pressure Location Lt brachial Position Sitting Respiration 20 Pulse 88 Pulse Source Pulse Oximeter Temp 98.2 F Temp Source Oral Pulse Oximetry (%) 94 Oxygen Delivery Method Room Air Intake Visit Reasons: Annual PE Intake Note: Pt is here today for PE. Allergies Tajvazs-IEU-RsM Reductase Inhibitor Adverse Reaction (Intermediate, Verified 08/01/25 11:18) myalgia Medication List - Last Reconciled 08/01/25 by Mame Zamora MD albuterol sulfate 90 mcg/actuation 2 puffs inhalation Q6H PRN buprenorphine-naloxone 12-3 mg 1 film sublingual DAILY buspirone 20 mg (2 x 10 mg) PO BID duloxetine 60 mg PO DAILY ezetimibe (Zetia) 10 mg PO DAILY vtfiakhiiqu-guvgimgom-cqyvflyz 200-62.5-25 mcg 1 inh inhalation DAILY furosemide 20 mg PO DAILY PRN meloxicam 15 mg PO DAILY nicotine 1 patch transdermal DAILY omeprazole 20 mg PO DAILY@0630 zolpidem 5 mg PO BEDTIME PRN Tobacco use date assessed: 08/01/25 Dental Screening Dental Screen Date: 04/27/25 HPI Annual PE HPI Details Pt presents for PE. She complains of worsening anxiety. Patient with a cruise and was worrying about the trip. She has been taking duloxetine and buspirone 10 mg twice a day. Patient denies depression. She is planning starting counseling which was helpful before. [facility] Medical History (Updated 08/01/25 @ 12:03 by Mame Zamora MD) Hypoxia COPD (chronic obstructive pulmonary disease) Congestive heart failure DEIDRA (obstructive sleep apnea) Hyperglycemia Opiate addiction Anxiety Nausea Annual physical exam Tobacco dependence Ankle pain, left Obese GERD (gastroesophageal reflux disease) Fibromyalgia Hyperlipidemia Insomnia Depression Anxiety Derangement of right knee Surgical History H/O colonoscopy History of total left knee replacement (TKR) Hx of right knee surgery Hx of left knee surgery History of repair of right rotator cuff History of arthroscopy of shoulder History of tubal ligation History of section History of lumpectomy of left breast History of arthroscopy of shoulder Family History Father No problems noted. Mother Breast cancer Throat cancer Substance use disorder Maternal Grandmother Alcoholism Maternal Grandfather No problems noted. Paternal Grandmother No problems noted. Paternal Grandfather No problems noted. Son No problems noted. Daughter No problems noted. 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 Do you presently have visiting nurse or other home services: No Alcohol intake: never Patient Tobacco Use Status: Current everyday Tobacco user Tobacco use type: Cigarette Cigarettes Per Day: 4 Years Smoked: 45 e-Cigarette/Vaping Use: Former Use Substance Use Type: Marijuana service: No Current occupational status: employed Cognitive needs: No Hearing needs: No Vision needs: Yes Questionnaire PHQ-9 Over the last 2 weeks, how often have you been bothered by any of the following problems? 1. Little interest or pleasure in doing things: more than half the days 2. Feeling down, depressed, or hopeless: more than half the days 3. Trouble falling or staying asleep, or sleeping too much: several days 4. Feeling tired or having little energy: more than half the days 5. Poor appetite or overeating: more than half the days 6. Feeling bad about yourself - or that you are a failure or have let yourself or your family down: several days 7. Trouble concentrating on things, such as reading the newspaper or watching television: more than half the days 8. Moving or speaking so slowly that other people could have noticed. Or the opposite - being so fidgety or restless that you have been moving around a lot more than usual: several days 9. Thoughts that you would be better off or of hurting yourself in some way: not at all Total score: 13 Depression Screening Interpretation: Positive (Continue duloxetine increase buspirone to 20 mg twice a day and start counseling) Depression Screening Follow-up: Existing condition and In treatment Depression Screening Done: Yes Source: Developed by Drs. Tawanda Gottlieb, Lesa Jeff, Peter Araujo and colleagues, with an educational sandi from [employer]. Thrive Questionnaire Date Thrive assessed: 02/27/25 I am a: Patient What is your living situation today?: I have a steady place to live Within the past 12 months, did the food you bought not last and you didn't have the money to get more?: Never true Within the past 12 months, did you worry whether your food would run out before you got money to buy more?: Never true Do you have trouble paying for medicines?: Yes Do you have trouble getting transportation to medical appointments?: No Do you have trouble paying your heating and electricity bill?: No Do you have trouble taking care of your child, family member or friend?: No Do you have trouble with day-to-day activities such as bathing, preparing meals, shopping, managing finances, etc.?: No Are you currently unemployed and looking for a job?: No Are you interested in more education?: No Please select the resources that you would like help with: Paying for medicine Currently or been in a relationship where the following occur: No concerns reported THRIVE Score: 0 NATTY-7 AMB Questionnaire NATTY-7 Date NATTY - 7 assessed: 03/15/25 Feeling nervous, anxious, or on edge: 0 = Not at all Not being able to stop or control worryin = Not at all Worrying too much about different things: 0 = Not at all Trouble relaxin = Not at all Being so restless that it is hard to sit still: 0 = Not at all Becoming easily annoyed or irritable: 0 = Not at all Feeling afraid as if something awful might happen: 0 = Not at all Total NATTY-7 score (0-4 normal; 5-9 mild; 10-14 moderate; 15-21 severe): 0 Source: Developed by Drs. Tawanda Gottlieb, Lesa Jeff, Peter Araujo and colleagues, with an educational sandi from [employer]. Review of Systems Const All systems reviewed & are unremarkable except as noted in HPI and below Eyes Reports no additional complaints ENT Reports no additional complaints Card Reports no additional complaints Resp Reports no additional complaints GI Reports no additional complaints Reports no additional complaints Physical exam (Primary Care) Vital Signs: Last Vital Signs Temp 98.2 F 08/01/25 10:58 Pulse 88 08/01/25 10:58 Resp 20 08/01/25 10:58 BP 122/66 08/01/25 10:58 Pulse Ox 94 08/01/25 10:58 Oxygen Delivery Method Room Air 08/01/25 10:58 BMI result Body Mass Index 37.2 Tobacco/Smoking Status: Tobacco use Status Tobacco use date assessed 08/01/25 08/01/25 11:22 Patient Tobacco Use Status Current everyday Tobacco 08/01/25 10:55 Tobacco use type Cigarette 08/01/25 10:55 e-Cigarette/Vaping Use Former Use 08/01/25 10:55 PHQ-9: PHQ-9 Score PHQ-9: Total score 13 08/01/25 11:22 Depression Screening Interpretation: Positive (Continue duloxetine increase buspirone to 20 mg twice a day and start counseling) Depression Screening Follow-up: Existing condition and In treatment Thrive Assessment: Date of Thrive Assessment Date Thrive assessed 02/27/25 08/01/25 10:55 Currently or been in a relationship where the following occur: No concerns reported Const General: no acute distress HENMT Head: Yes normal to inspection Face and sinus: Yes normal facial exam Neck Neck: Yes no lymphadenopathy and Yes supple Resp Effort & Inspection: normal respiratory effort Auscultation: diminished lung sounds Cardio Rhythm: regular rhythm Heart sounds: S1 normal heart sound present and S2 normal heart sound present GI Inspection: Yes normal to inspection Palpation (GI): Soft to palpation Percussion: Yes normal to percussion Auscultation: normal bowel sounds Extrem Other: +1 pitting edema bilaterally Coding Level of Care Code Est Pt Prev Care 40-64y(41732) Diagnoses Hyperlipidemia E78.5 Anxiety F41.9 COPD (chronic obstructive pulmonary disease) J44.9 Annual physical exam Z00.00 Assessment & Plan Assessment & Plan (1) Hyperlipidemia: Comment: can not tolerate statins, myalgia, on Zetia Code(s): E78.5 - Hyperlipidemia, unspecified Category: Medical Plan: Continue Zetia and low-cholesterol diet (2) Anxiety: Code(s): F41.9 - Anxiety disorder, unspecified Category: Medical Plan: Increase buspirone to 20 mg twice a day and continue duloxetine (3) COPD (chronic obstructive pulmonary disease): Comment: f/u with pulmonary, not ready to quit smoking Code(s): J44.9 - Chronic obstructive pulmonary disease, unspecified Category: Medical Plan: Continue Trelegy supplemental O2 and tobacco quitting discussed with the patient (4) Annual physical exam: Code(s): Z00.00 - Encounter for general adult medical examination without abnormal findings Category: Medical Plan: Well-balanced diet weight loss and regular exercise discussed with the patient. she is up-to-date with the mammogram and will be referred to GI for colonoscopy. Follow-up in 6 months Orders: Orders Comprehensive [place]. Panel Fast 6 Months E55.9 - Vitamin D deficiency, unspecified, E78.5 - Hyperlipidemia, unspecified, I50.9 - Heart failure, unspecified, R73.9 - Hyperglycemia, unspecified Lipid Panel 6 Months E55.9 - Vitamin D deficiency, unspecified, E78.5 - Hyperlipidemia, unspecified, I50.9 - Heart failure, unspecified, R73.9 - Hyperglycemia, unspecified Complete Blood Count Auto Diff 6 Months E55.9 - Vitamin D deficiency, unspecified, E78.5 - Hyperlipidemia, unspecified, I50.9 - Heart failure, unspecified, R73.9 - Hyperglycemia, unspecified Vitamin D 25-OH Total 6 Months E55.9 - Vitamin D deficiency, unspecified, E78.5 - Hyperlipidemia, unspecified, I50.9 - Heart failure, unspecified, R73.9 - Hyperglycemia, unspecified Hemoglobin A1c 6 Months E55.9 - Vitamin D deficiency, unspecified, E78.5 - Hyperlipidemia, unspecified, I50.9 - Heart failure, unspecified, R73.9 - Hyperglycemia, unspecified TSH reflex Free T4 6 Months E55.9 - Vitamin D deficiency, unspecified, E78.5 - Hyperlipidemia, unspecified, I50.9 - Heart failure, unspecified, R73.9 - Hyperglycemia, unspecified Referrals Gastroenterology Referral Z00.00 - Encounter for general adult medical examination without abnormal findings Medications: Changed From buspirone 10 mg PO BID 180 tabs 0RF To buspirone 20 mg (2 x 10 mg) PO BID 360 tabs 1RF
[2025-08-01 10:58] VITALS: BP 122/66; PULSE 88; RESP 20; TEMP 36.8; O2SAT 94; BMI 37.2
== END 2025-08-01 11:45 | disposition home or self-care (01) ==
LOC: HO.HMCC 10:46
PROVIDERS: PCP Internal Medicine; Visit Provider Internal Medicine
DX: Z00.00 Encounter for general adult medical examination without abnormal findings (principal); E78.5 Hyperlipidemia, unspecified; F41.9 Anxiety disorder, unspecified; J44.9 Chronic obstructive pulmonary disease, unspecified

== ENCOUNTER → 2025-08-01 10:44 | Outpatient (BNVA) | payer OTHER, SELFPAY | PROVIDERS: PCP Internal Medicine; Visit Provider Internal Medicine | DX: Z00.00 Encounter for general adult medical examination without abnormal findings (principal); F41.9 Anxiety disorder, unspecified; J44.9 Chronic obstructive pulmonary disease, unspecified; E78.5 Hyperlipidemia, unspecified; Z79.899 Other long term (current) drug therapy | CPT/HCPCS: 99396 ==

== ENCOUNTER 2025-10-26 13:02 | Outpatient (REF) | payer OTHER, SELFPAY ==
--- NOTE | ~2025-10-26 | CT_ITS ---
EXAMINATION: CT CHEST WITHOUT CONTRAST CLINICAL INFORMATION: J90 - Pleural effusion, not elsewhere classified COMPARISON: May 18, 2025 TECHNIQUE: Multidetector volumetric CT imaging of the chest was done. Axial MIP volume rendering provided. Sagittal and coronal reformatted images were obtained. This CT examination was performed using dose optimization techniques as appropriate, variously including the following: *Automated exposure control *Adjustment of mA and/or kV according to patient size (this includes techniques or standardized protocols for targeted exams where dose is matched to indication/reason for exam; i.e. extremities or head) *Use of iterative reconstruction technique FINDINGS: LUNGS: Probable linear scarring with associated atelectasis in the lingula is improved from the prior. Small focal density along the anteromedial aspect of the right minor fissure probably represents subsegmental atelectasis and/or scarring similar to the prior. Linear subsegmental atelectasis is noted in the lateral right lung base. Linear scarring/atelectasis in the lateral aspect of the anteromedial segment of the left lower lobe is decreased. MEDIASTINUM: The mediastinum is normal. CORONARY ARTERY CALCIFICATION: Present PLEURA: Again seen are nodular densities along the right major and minor fissure consistent with intrapulmonary lymph nodes. AXILLA: No lymphadenopathy. UPPER ABDOMEN: Right adrenal gland nodule measures 15 x 24 mm and -28 Hounsfield units diagnostic of a benign adrenal adenoma. There are few punctate calcified granulomas in the spleen. OSSEOUS STRUCTURES: Mild degenerative changes are present in the thoracic spine. CT/CT chest wo IV con IMPRESSION: Stable to mildly improved multifocal atelectasis and possible underlying scarring. Benign lipid rich right adrenal adenoma. Fleischner guidelines were followed. Electronically signed by: Dani Yoder MD 10/26/2025 01:39 PM EST
== END 2025-10-26 13:03 | disposition home or self-care (01) ==
LOC: HO.CT 13:02
PROVIDERS: PCP Internal Medicine; Visit Provider Internal Medicine Pulmonary Disease
DX: J90 Pleural effusion, not elsewhere classified (principal)
CPT/HCPCS: 71250

== ENCOUNTER → 2025-10-26 13:03 | Outpatient (BNV) | payer OTHER, SELFPAY | PROVIDERS: PCP Internal Medicine; Visit Provider Radiology Diagnostic Radiology | DX: J98.11 Atelectasis (principal); D35.01 Benign neoplasm of right adrenal gland | CPT/HCPCS: 71250 ==